=== PATIENT | female | born 1935 | race Caucasian/White ===

== ENCOUNTER 2017-08-02 19:06 | Emergency (ER) | payer MEDICARE, BC ==
--- NOTE | 2017-08-02 19:18 | EDM.PDOC ---
ED HPI GENERAL MEDICAL PROBLEM - General Chief Complaint: Lower Extremity Injury/Pain Stated Complaint: AMBULANCE Time Seen by Provider: 08/02/17 19:16 Source of Information: Reports: Patient, EMS History Limitations: Reports: No Limitations - History of Present Illness INITIAL COMMENTS - FREE TEXT/NARRATIVE: fell last night laid on floor. states right leg is bad with prior knee surgery and it gave out while she was going to the window to close the blinds. Right Knee Pain Score (Numeric/FACES): 5 - Related Data Allergies Allergy/AdvReac Type Severity Reaction Status Date / Time metformin Allergy Diarrhea Verified 08/02/17 19:32 penicillin Allergy Edema Verified 08/02/17 19:32 Sulfa (Sulfonamide Allergy Cannot Verified 08/02/17 19:32 Antibiotics) Remember Home Meds: Home Meds Furosemide 20 mg PO DAILY 06/21/15 [History] atorvaSTATin [Lipitor] 20 mg PO BEDTIME 06/21/15 [History] Digoxin [Lanoxin] 125 mcg PO .NOON 01/01/16 [History] Diltiazem HCl [Diltiazem 24Hr ER] 120 mg PO DAILY 01/01/16 [History] Fluticasone Propionate [Flonase] 1 spray NASBOTH BID 01/01/16 [History] Ipratropium/Albuterol Sulfate [Combivent Respimat Inhal [place]] 1 puff IH QID PRN 01/01/16 [History] Metoprolol Tartrate [Lopressor] 100 mg PO BID 01/01/16 [History] Rivaroxaban [Xarelto] 15 mg PO .1800 01/01/16 [History] Budesonide [Pulmicort] 2 ml NEB BID 02/20/16 [History] Formoterol Fumarate [Perforomist] 2 ml NEB .BID 02/20/16 [History] Levothyroxine Sodium [Synthroid] 75 mcg PO ACBREAKFAST 05/20/16 [History] Montelukast [Singulair] 10 mg PO BEDTIME 05/20/16 [History] Albuterol/Ipratropium [DuoNeb 3.0-0.5 MG/3 ML] 3 ml NEB ASDIRECTED 08/05/16 [ History] Prednisone [IJD: predniSONE] 40 mg PO WITHBREAKFAST #4 tablet 08/25/16 [Rx] Past Medical History HEENT History: Reports: Impaired Vision Cardiovascular History: Reports: Afib, CAD, Heart Failure, High Cholesterol, Hypertension, Pulmonary Hypertension, SOB on Exertion Other Cardiovascular History: unsure if she has had an irregular heart beat in the past, a.fib with rapid ventricular response. 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 OB/BYN History: miscarriage, blocked tubes bilat Musculoskeletal History: Reports: Neck Pain, Chronic, Osteoarthritis Neurological History: Reports: None Psychiatric History: Reports: Emotional Problems Endocrine/Metabolic History: Reports: Diabetes, Type II, Hypothyroidism, Obesity /BMI 30+ Hematologic History: Reports: Anticoagulation Therapy Immunologic History: Reports: None Oncologic (Cancer) History: Reports: None Dermatologic History: Reports: Other (See Below) Other Dermatologic History: spot removed on nose a long time ago - Infectious Disease History Infectious Disease History: Reports: C-Difficile, Measles, Pertussis (Whooping Cough) - Past Surgical History HEENT Surgical History: Reports: Cataract Surgery Musculoskeletal Surgical History: Reports: Joint Replacement, Knee Replacement Social & Family History - Family History Family Medical History: Noncontributory - Tobacco Use Smoking Status *Q: Former Smoker Years of Tobacco use: 40 Packs/Tins Daily: 0.5 Used Tobacco, but Quit: Yes Month Tobacco Last Used: 20 years ago Second Hand Smoke Exposure: No - Caffeine Use Caffeine Use: Reports: Coffee - Alcohol Use Days Per Week of Alcohol Use: 1 Number of Drinks Per Day: 1 Total Drinks Per Week: 1 - Recreational Drug Use Recreational Drug Use: No - Living Situation & Occupation Living situation: Reports: , Alone, Other Occupation: Retired Review of Systems - Review of Systems Review Of Systems: ROS reveals no pertinent complaints other than HPI. ED EXAM, GENERAL - Physical Exam Exam: See Below Exam Limited By: No Limitations General Appearance: Alert, WD/WN, Mild Distress, Other (painful) Ears: Hearing Grossly Normal Throat/Mouth: Normal Voice, No Airway Compromise Head: Atraumatic Neck: Non-Tender, Full Range of Motion Respiratory/Chest: No Respiratory Distress Cardiovascular: Regular Rate, Rhythm GI/Abdominal: Soft, Non-Tender Extremities: Other (right knee old ORIF, anglulated externally in position of comfort, NV wnl.) Neurological: Alert, Oriented, Normal Cognition Psychiatric: Tearful Skin Exam: Warm, Dry, Normal Color Lymphatic: No Adenopathy Course - Vital Signs Last Recorded V/S: Last Vital Signs Temp 36.4 C 08/02/17 19:12 Pulse 69 08/02/17 19:12 Resp 18 08/02/17 19:12 BP 130/71 08/02/17 19:12 Pulse Ox 96 08/02/17 19:12 - Re-Assessments/Exams Free Text/Narrative Re-Assessment/Exam: 08/02/17 19:49 results discussed with pt who is not happy about breaking her knee. GF called. 08/02/17 20:14 Dr Gwen aleman @ [facility] accepted pt. Departure - Departure Time of Disposition: 20:16 Disposition: DC/Tfer to Acute Hospital 02 Condition: Fair Clinical Impression: Knee fracture, right - Discharge Information Forms: Interfacility Transfer EMTALA
[2017-08-02 19:29] VITALS: BP 130/71
[2017-08-02] MEDS ORDERED: Ondansetron 4 MG/2 ML SDV IV ONE (20:39)
[2017-08-02] MEDS ORDERED: Morphine 2 MG/ML Syringe IVPUSH ONE (20:39)
== END 2017-08-02 21:00 ==
LOC: DL.ED 19:06
DX: S72.401A Unspecified fracture of lower end of right femur, initial encounter for closed fracture (principal); I11.0 Hypertensive heart disease with heart failure; I50.9 Heart failure, unspecified; I25.10 Atherosclerotic heart disease of native coronary artery without angina pectoris; I48.91 Unspecified atrial fibrillation; E78.00 Pure hypercholesterolemia, unspecified; K21.9 Gastro-esophageal reflux disease without esophagitis; G47.30 Sleep apnea, unspecified; M19.90 Unspecified osteoarthritis, unspecified site; E11.9 Type 2 diabetes mellitus without complications; E03.9 Hypothyroidism, unspecified; E66.9 Obesity, unspecified; Z79.01 Long term (current) use of anticoagulants; Z98.49 Cataract extraction status, unspecified eye; Z96.651 Presence of right artificial knee joint; Z87.891 Personal history of nicotine dependence; Z79.899 Other long term (current) drug therapy; Z88.0 Allergy status to penicillin; Z88.2 Allergy status to sulfonamides; Z88.8 Allergy status to other drugs, medicaments and biological substances; W19.XXXA Unspecified fall, initial encounter; Z68.39 Body mass index [BMI] 39.0-39.9, adult
CPT/HCPCS: 73560; 82962; 96374; 96375; 99285; J2270; J2405; 99283

== ENCOUNTER 2017-12-21 02:05 | Emergency (ER) | payer MEDICARE, BC ==
--- NOTE | 2017-12-21 02:06 | EDM.PDOC ---
ED HPI GENERAL MEDICAL PROBLEM - General Stated Complaint: FLU. IN BY DL AMB FROM [facility] Time Seen by Provider: 12/21/17 01:50 Source of Information: Reports: Patient History Limitations: Reports: No Limitations - History of Present Illness INITIAL COMMENTS - FREE TEXT/NARRATIVE: This 82 yo female patient was brought to the ED by [facility] due to a near syncopial episode. The patient reports she got up tonight to have a loose bowel movement when she had an episode of lightheadedness. The patient reports she did not fall down. The patient reports she also has some pain in her right arm over the past couple of days. Onset: Today Duration: Resolved Prior to Arrival Location: Reports: Generalized Quality: Reports: Other Severity: Moderate Improves with: Reports: None Worsens with: Reports: None Associated Symptoms: Reports: Syncope (near) Right Knee Pain Score (Numeric/FACES): 6 - Related Data Allergies Allergy/AdvReac Type Severity Reaction Status Date / Time metformin Allergy Diarrhea Verified 08/02/17 19:32 penicillin Allergy Edema Verified 08/02/17 19:32 Sulfa (Sulfonamide Allergy Cannot Verified 08/02/17 19:32 Antibiotics) Remember Home Meds: Home Meds Furosemide 20 mg PO DAILY 06/21/15 [History] atorvaSTATin [Lipitor] 20 mg PO BEDTIME 06/21/15 [History] Digoxin [Lanoxin] 125 mcg PO .NOON 01/01/16 [History] Diltiazem HCl [Diltiazem 24Hr ER] 120 mg PO DAILY 01/01/16 [History] Fluticasone Propionate [Flonase] 1 spray NASBOTH BID 01/01/16 [History] Ipratropium/Albuterol Sulfate [Combivent Respimat Inhal [place]] 1 puff IH QID PRN 01/01/16 [History] Metoprolol Tartrate [Lopressor] 100 mg PO BID 01/01/16 [History] Rivaroxaban [Xarelto] 15 mg PO .1800 01/01/16 [History] Budesonide [Pulmicort] 2 ml NEB BID 02/20/16 [History] Formoterol Fumarate [Perforomist] 2 ml NEB .BID 02/20/16 [History] Levothyroxine Sodium [Synthroid] 75 mcg PO ACBREAKFAST 05/20/16 [History] Montelukast [Singulair] 10 mg PO BEDTIME 05/20/16 [History] Albuterol/Ipratropium [DuoNeb 3.0-0.5 MG/3 ML] 3 ml NEB ASDIRECTED 08/05/16 [ History] Prednisone [IJD: predniSONE] 40 mg PO WITHBREAKFAST #4 tablet 08/25/16 [Rx] Past Medical History HEENT History: Reports: Impaired Vision Cardiovascular History: Reports: Afib, CAD, Heart Failure, High Cholesterol, Hypertension, Pulmonary Hypertension, SOB on Exertion Other Cardiovascular History: unsure if she has had an irregular heart beat in the past, a.fib with rapid ventricular response. 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 OB/BYN History: miscarriage, blocked tubes bilat Musculoskeletal History: Reports: Neck Pain, Chronic, Osteoarthritis Neurological History: Reports: None Psychiatric History: Reports: Emotional Problems Endocrine/Metabolic History: Reports: Diabetes, Type II, Hypothyroidism, Obesity /BMI 30+ Hematologic History: Reports: Anticoagulation Therapy Immunologic History: Reports: None Oncologic (Cancer) History: Reports: None Dermatologic History: Reports: Other (See Below) Other Dermatologic History: spot removed on nose a long time ago - Infectious Disease History Infectious Disease History: Reports: C-Difficile, Measles, Pertussis (Whooping Cough) - Past Surgical History Head Surgeries/Procedures: Reports: None HEENT Surgical History: Reports: Cataract Surgery Musculoskeletal Surgical History: Reports: Joint Replacement, Knee Replacement Social & Family History - Family History Family Medical History: Noncontributory - Tobacco Use Smoking Status *Q: Never Smoker Years of Tobacco use: 40 Packs/Tins Daily: 0.5 Used Tobacco, but Quit: Yes Month Tobacco Last Used: 20 years ago Second Hand Smoke Exposure: No - Caffeine Use Caffeine Use: Reports: Coffee - Alcohol Use Days Per Week of Alcohol Use: 1 Number of Drinks Per Day: 1 Total Drinks Per Week: 1 - Recreational Drug Use Recreational Drug Use: No - Living Situation & Occupation Living situation: Reports: , Alone, Other Occupation: Retired ED ROS GENERAL - Review of Systems Review Of Systems: ROS reveals no pertinent complaints other than HPI. - Physical Exam Exam: See Below Exam Limited By: No Limitations General Appearance: Alert, WD/WN, Moderate Distress Eye Exam: Bilateral Eye: EOMI, Normal Inspection, PERRL Ears: Normal External Exam, Normal Canal, Hearing Grossly Normal, Normal TMs Nose: Normal Inspection, Normal Mucosa, No Blood Throat/Mouth: Normal Inspection, Normal Lips, Normal Teeth, Normal Gums, Normal Oropharynx, Normal Voice, No Airway Compromise Head Exam: Atraumatic, Normocephalic Neck: Normal Inspection, Supple, Non-Tender, Full Range of Motion Respiratory/Chest: No Respiratory Distress, Lungs Clear, Normal Breath Sounds, No Accessory Muscle Use, Chest Non-Tender Cardiovascular: No Edema, No Gallop, No JVD, No Murmur, No Rub, Irregularly Irregular GI/Abdominal: Normal Bowel Sounds (Female) Exam: Deferred Rectal (Female) Exam: Deferred Neuro Exam (Abbreviated): Alert, Oriented, CN II-XII Intact, Normal Cognition Back Exam: Normal Inspection, Full Range of Motion, NT Extremities: Normal Inspection, Normal Range of Motion, Non-Tender, No Pedal Edema, Normal Capillary Refill Psychiatric: Normal Affect, Normal Mood Skin Exam: Warm, Dry, Intact, Normal Color, No Rash Course - Vital Signs Last Recorded V/S: Last Vital Signs Temp 36.1 C 12/21/17 01:37 Pulse 88 12/21/17 01:37 Resp 18 12/21/17 01:37 BP 118/50 L 12/21/17 01:37 Pulse Ox 96 12/21/17 01:37 - Orders/Labs/Meds Orders: Active Orders 24 hr Category Date Time Status EKG Documentation Completion [RC] URGENT Care 12/21/17 01:37 Active CULTURE URINE [RM] Stat Lab 12/21/17 02:35 Received Labs: Laboratory Tests 12/21/17 12/21/17 12/21/17 Range/Units 01:50 01:50 02:35 WBC 14.8 H (5.0-10.0) 10^3/uL RBC 4.03 L (4.2-5.4) 10^6/uL Hgb 12.1 (12.0-16.0) g/dL Hct 37.9 (37.0-47.0) % MCV 94.0 (80-100) fL MCH 30.0 (27.0-34.0) pg MCHC 31.9 L (33.0-35.0) g/dL Plt Count 339 D (150-450) 10^3/uL Neut % (Auto) 80.5 H (42.2-75.2) % Lymph % (Auto) 9.8 L (20.5-50.1) % [place] % (Auto) 6.9 (2-8) % Eos % (Auto) 2.7 (1.0-3.0) % Baso % (Auto) 0.1 (0.0-1.0) % Sodium 139 (135-145) mmol/L Potassium 3.7 (3.6-5.0) mmol/L Chloride 94 L (101-111) mmol/L Carbon Dioxide 37.0 H (21.0-31.0) mmol/L Anion Gap 11.7 BUN 29 H (7-18) mg/dL Creatinine 1.3 (0.6-1.3) mg/dL Est Cr Clr Drug Dosing TNP Estimated GFR (MDRD) 39 BUN/Creatinine Ratio 22.30 Glucose 126 H (74-105) mg/dL Calcium 9.3 D (8.4-10.2) mg/dl Total Bilirubin 0.6 (0.2-1.0) mg/dL AST 17 (10-42) IU/L ALT 7 L (10-60) IU/L Alkaline Phosphatase 81 (42-121) IU/L Troponin I < 0.02 (0.00-0.02) ng/ml Total Protein 6.8 (6.7-8.2) g/dl Albumin 3.4 (3.2-5.5) g/dl Globulin 3.4 Albumin/Globulin Ratio 1.00 Urine Color Yellow (YELLOW) Urine Appearance Turbid (CLEAR) Urine pH 6.0 (5.0-9.0) Ur Specific [place] 1.015 (1.005-1.030) Urine Protein Negative (NEGATIVE) Urine Glucose (UA) Negative (NEGATIVE) Urine Ketones Negative (NEGATIVE) Urine Occult Blood Small H (NEGATIVE) Urine Nitrite Negative (NEGATIVE) Urine Bilirubin Negative (NEGATIVE) Urine Urobilinogen 0.2 (0.2-1.0) mg/dL Ur Leukocyte Esterase Large H (NEGATIVE) Urine RBC 5-10 H /HPF Urine WBC Packed H (0-5/HPF) /HPF Ur Epithelial Cells Moderate H /HPF Urine Bacteria Many H (0-FEW/HPF) /HPF Meds: Medications Discontinued Medications Generic Name Dose Route Start Last Admin Trade Name [place] PRN Reason Stop Dose Admin Ciprofloxacin 500 mg 12/21/17 02:56 12/21/17 03:01 Ciprofloxacin Hcl PO 12/21/17 02:57 500 mg ONETIME ONE Administration Departure - Departure Time of Disposition: 03:06 Disposition: DC/Tfer to Detention [facility] 63 Condition: Fair Clinical Impression: Syncope Qualifiers: Syncope type: unspecified Qualified Code(s): R55 - Syncope and collapse Urinary tract infection Qualifiers: Urinary tract infection type: acute cystitis Hematuria presence: with hematuria Qualified Code(s): N30.01 - Acute cystitis with hematuria - Discharge Information Instructions: Near-Syncope, [id number], Urinary Tract Infection, Adult, Easy- to-Read Care Plan Goals: The patient was advised of the examination, lab and EKG results during the visit. The patient was given an oral dose of Cipro while in the ED. The patient was given orders to continue to take Cipro (250 mg) 1 by mouth 2 times per day for 7 days. If the patient has any additional symptoms or concerns, the patient should follow-up with her primary care facility or return to the emergency department. - My Orders Last 24 Hours: My Active Orders 12/21/17 01:37 EKG Documentation Completion [RC] URGENT 12/21/17 02:35 CULTURE URINE [RM] Stat - Assessment/Plan Last 24 Hours: My Active Orders 12/21/17 01:37 EKG Documentation Completion [RC] URGENT 12/21/17 02:35 CULTURE URINE [RM] Stat
[2017-12-21 02:19] LABS: CHLORIDE,CL 94 mmol/L (101-111); SODIUM,NA 139 mmol/L (135-145)
[2017-12-21] MEDS ORDERED: Ciprofloxacin 500 MG Tab PO ONE (02:56)
[2017-12-21] MEDS ORDERED: Acetaminophen/HYDROcodone 325-5 MG Tab PO ONE (03:22)
[2017-12-21 03:41] VITALS: BP 125/53
--- NOTE | 2017-12-23 12:31 | EKG ---
12/21/2017 - [facility] - FINDINGS: A 12-lead EKG shows atrial fibrillation with rapid ventricular response with heart rate of 92. No significant ST elevation or ST depression. Evidence of right bundle-branch block along with left anterior fascicular block noted. Nonspecific ST-T wave changes noted on lead V2 and V3. [facility] /[id number]
== END 2017-12-21 04:07 ==
LOC: DL.ED 02:05
DX: R55 Syncope and collapse (principal); N30.01 Acute cystitis with hematuria; I11.0 Hypertensive heart disease with heart failure; I15.0 Renovascular hypertension; E78.00 Pure hypercholesterolemia, unspecified; E11.9 Type 2 diabetes mellitus without complications; E03.9 Hypothyroidism, unspecified; Z88.8 Allergy status to other drugs, medicaments and biological substances; Z88.0 Allergy status to penicillin; Z88.2 Allergy status to sulfonamides; Z79.899 Other long term (current) drug therapy
CPT/HCPCS: 36415; 80053; 81001; 84484; 85025; 87086; 93005; 93010; 99284; A9270; 87088; 87186

== ENCOUNTER 2020-02-29 13:51 | Inpatient (IN) | payer MEDICARE, BC ==
--- NOTE | 2020-02-29 13:51 | EDM.PDOC ---
ED HPI GENERAL MEDICAL PROBLEM - General Chief Complaint: Respiratory Problem Stated Complaint: UNKNOWN Time Seen by Provider: 02/29/20 13:35 Source of Information: Reports: Patient History Limitations: Reports: No Limitations - History of Present Illness INITIAL COMMENTS - FREE TEXT/NARRATIVE: This 84 yo female patient reports to the ED from the alf due to increased swelling in her lower extremities, a 6 pound weight gain in the past 24 hours, increased shortness of breath and increased confusion. The patient was seen (via telemed) yesterday by Dr. Hein and given an IM injection of Lasix due to the swelling. The patient reports she has continued to get worse not better. The patient reports she feels like her body is giving up faster than her brain. Onset: Gradual Duration: Day(s):, Constant Location: Reports: Chest, Lower Extremity, Left, Lower Extremity, Right Quality: Reports: Dull Severity: Moderate Improves with: Reports: None Worsens with: Reports: None Associated Symptoms: Reports: Shortness of Breath, Other (swelling with weight gain) - Related Data Allergies Allergy/AdvReac Type Severity Reaction Status Date / Time metformin Allergy Diarrhea Verified 01/18/20 09:14 penicillin Allergy Edema Verified 01/18/20 09:14 Sulfa (Sulfonamide Allergy Cannot Verified 01/18/20 09:14 Antibiotics) Remember Home Meds: Home Meds atorvaSTATin [Lipitor] 20 mg PO BEDTIME 06/21/15 [History] Digoxin [Lanoxin] 125 mcg PO Q48H 01/01/16 [History] Ipratropium/Albuterol Sulfate [Combivent Respimat 20-100 Mcg] 1 puff IH QID PRN 01/01/16 [History] Rivaroxaban [Xarelto] 15 mg PO DAILY 01/01/16 [History] Budesonide [Pulmicort] 2 ml NEB BID 02/20/16 [History] Montelukast [Singulair] 10 mg PO BEDTIME 05/20/16 [History] Albuterol/Ipratropium [DuoNeb 3.0-0.5 MG/3 ML] 3 ml NEB ASDIRECTED 08/05/16 [ History] Acetaminophen [Tylenol Extra Strength] 500 mg PO BID 01/18/20 [History] Calcium Carbonate [Calcium] 600 mg PO BID 01/18/20 [History] Cholecalciferol (Vitamin D3) [Vitamin D3] 1,000 unit PO DAILY 01/18/20 [History] Diclofenac Sodium [Voltaren 1% Gel] 1 dose TOP ASDIRECTED PRN 01/18/20 [History] Docusate Sodium [Colace] 100 mg PO BID 01/18/20 [History] L. Acidophilus/L.bulgaricus [Floranex Tablet] 1 tab PO DAILY 01/18/20 [History] Levothyroxine 112 mcg PO DAILY 01/18/20 [History] Metoprolol Tartrate 25 mg PO BID 01/18/20 [History] Polyethylene Glycol 3350 [Miralax] 17 gm PO DAILY 01/18/20 [History] Potassium Chloride 10 meq PO BEDTIME 01/18/20 [History] Torsemide [Demadex] 80 mg PO DAILY 01/18/20 [History] allopurinoL [Zyloprim] 200 mg PO DAILY 01/18/20 [History] Ferrous Sulfate [Iron] 325 mg PO BID 02/29/20 [History] Past Medical History HEENT History: Reports: Impaired Vision Cardiovascular History: Reports: Afib, CAD, Heart Failure, High Cholesterol, Hypertension, Pulmonary Hypertension, SOB on Exertion Other Cardiovascular History: unsure if she has had an irregular heart beat in the past, a.fib with rapid ventricular response. 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: Other METAL ROASTER History: miscarriage, blocked tubes bilat Musculoskeletal History: Reports: Neck Pain, Chronic, Osteoarthritis Neurological History: Reports: None Psychiatric History: Reports: Emotional Problems Endocrine/Metabolic History: Reports: Diabetes, Type II, Hypothyroidism, Obesity /BMI 30+ Hematologic History: Reports: Anemia, Anticoagulation Therapy Immunologic History: Reports: None Oncologic (Cancer) History: Reports: None Dermatologic History: Reports: Other (See Below) Other Dermatologic History: spot removed on nose a long time ago - Infectious Disease History Infectious Disease History: Reports: Chicken Pox, Measles, Mumps, Shingles - Past Surgical History Head Surgeries/Procedures: Reports: None HEENT Surgical History: Reports: Cataract Surgery, Tonsillectomy Cardiovascular Surgical History: Reports: None Respiratory Surgical History: Reports: None GI Surgical History: Reports: Appendectomy Female Surgical History: Reports: Hysterectomy Musculoskeletal Surgical History: Reports: Joint Replacement, Knee Replacement Social & Family History - Family History Family Medical History: Noncontributory - Caffeine Use Caffeine Use: Reports: Coffee Caffeine Use Comment: 2 cups daily - Living Situation & Occupation Living situation: Reports: , Alone, Other Occupation: Retired ED ROS GENERAL - Review of Systems Review Of Systems: Comprehensive ROS is negative, except as noted in HPI. ED EXAM, GENERAL - Physical Exam Exam: See Below Exam Limited By: No Limitations General Appearance: Alert, WD/WN, Moderate Distress, Obese Eye Exam: Bilateral Eye: EOMI, Normal Inspection, PERRL Ears: Normal External Exam, Normal Canal, Hearing Grossly Normal, Normal TMs Nose: Normal Inspection, Normal Mucosa, No Blood Throat/Mouth: Normal Inspection, Normal Lips, Normal Teeth, Normal Gums, Normal Oropharynx, Normal Voice, No Airway Compromise Head: Atraumatic, Normocephalic Neck: Normal Inspection, Supple, Non-Tender, Full Range of Motion Respiratory/Chest: No Accessory Muscle Use, Chest Non-Tender, Decreased Breath Sounds (diffuse) Cardiovascular: No Gallop, No JVD, No Murmur, No Rub, Irregularly Irregular GI/Abdominal: Normal Bowel Sounds, Soft, Distended (according to patient) (Female) Exam: Deferred Rectal (Female) Exam: Deferred Back Exam: Normal Inspection, Full Range of Motion, NT Extremities: Non-Tender, Normal Capillary Refill, Pedal Edema Neurological: Alert, Oriented, CN II-XII Intact, Slow to Respond ( intermittently the patient struggled to find the right words) Psychiatric: Normal Affect, Normal Mood Skin Exam: Warm, Dry, Intact, Normal Color, No Rash Lymphatic: No Adenopathy Course - Vital Signs Last Recorded V/S: Last Vital Signs Temp 36.3 C 02/29/20 13:08 Pulse 85 02/29/20 13:08 Resp 28 H 02/29/20 13:08 BP 117/52 L 02/29/20 13:08 Pulse Ox 100 02/29/20 13:08 - Orders/Labs/Meds Orders: Active Orders 24 hr Category Date Time Status Admission Diagnosis [ADT] Urgent ADT 02/29/20 15:17 Ordered Admission Status [Patient Status] [ADT] Routine ADT 02/29/20 15:17 Ordered EKG Documentation Completion [RC] URGENT Care 02/29/20 13:18 Active CULTURE BLOOD [BC] Stat Lab 02/29/20 13:32 Received CULTURE URINE [RM] Urgent Lab 02/29/20 14:40 Received Labs: Laboratory Tests 02/29/20 02/29/20 02/29/20 Range/Units 13:32 13:32 13:32 WBC 12.6 H (5.0-10.0) 10^3/uL RBC 2.97 L (4.2-5.4) 10^6/uL Hgb 8.7 L D (12.0-16.0) g/dL Hct 30.4 L (37.0-47.0) % MCV 102.4 H D (80-100) fL MCH 29.3 (27.0-34.0) pg MCHC 28.6 L (33.0-35.0) g/dL Plt Count 315 (150-450) 10^3/uL Neut % (Auto) 79.9 H (42.2-75.2) % Lymph % (Auto) 8.9 L (20.5-50.1) % [place] % (Auto) 9.2 H (2-8) % Eos % (Auto) 1.4 (1.0-3.0) % Baso % (Auto) 0.6 (0.0-1.0) % Add Manual Diff Yes Neutrophils % (Manual) 78 H (42-75) % Lymphocytes % (Manual) 15 L (20-50) % Monocytes % (Manual) 7 (2-8) % Toxic Granulation 1+ slight Hypochromasia 2+ moderate Sodium (136-145) mmol/L Potassium (3.5-5.1) mmol/L Chloride (98-107) mmol/L Carbon Dioxide (21-32) mmol/L Anion Gap (7-13) mEq/L BUN (7-18) mg/dL Creatinine (0.55-1.02) mg/dL Est Cr Clr Drug Dosing mL/min Estimated GFR (MDRD) BUN/Creatinine Ratio (No establ ref range) Glucose (74-99) mg/dL Lactic Acid 2.1 H* (0.4-2.0) mmol/L Calcium (8.5-10.1) mg/dL Total Bilirubin (0.2-1.0) mg/dL AST (15-37) U/L ALT (14-59) U/L Alkaline Phosphatase (46-116) U/L Troponin I (0.000-0.056) ng/mL B-Natriuretic Peptide 255 H (0-100) pg/ml Total Protein (6.4-8.2) g/dL Albumin (3.4-5.0) g/dL Globulin Albumin/Globulin Ratio Urine Color (YELLOW) Urine Appearance (CLEAR) Urine pH (5.0-9.0) Ur Specific [place] (1.005-1.030) Urine Protein (NEGATIVE) Urine Glucose (UA) (NEGATIVE) Urine Ketones (NEGATIVE) Urine Occult Blood (NEGATIVE) Urine Nitrite (NEGATIVE) Urine Bilirubin (NEGATIVE) Urine Urobilinogen (0.2-1.0) mg/dL Ur Leukocyte Esterase (NEGATIVE) U Hyaline Cast (Auto) Urine RBC /HPF Urine WBC (0-5/HPF) /HPF Ur Epithelial Cells (NOT SEEN) /HPF Urine Bacteria (0-FEW/HPF) /HPF Digoxin (0.9-2.0) ng/mL 02/29/20 02/29/20 02/29/20 Range/Units 13:32 13:32 14:40 WBC (5.0-10.0) 10^3/uL RBC (4.2-5.4) 10^6/uL Hgb (12.0-16.0) g/dL Hct (37.0-47.0) % MCV (80-100) fL MCH (27.0-34.0) pg MCHC (33.0-35.0) g/dL Plt Count (150-450) 10^3/uL Neut % (Auto) (42.2-75.2) % Lymph % (Auto) (20.5-50.1) % [place] % (Auto) (2-8) % Eos % (Auto) (1.0-3.0) % Baso % (Auto) (0.0-1.0) % Add Manual Diff Neutrophils % (Manual) (42-75) % Lymphocytes % (Manual) (20-50) % Monocytes % (Manual) (2-8) % Toxic Granulation Hypochromasia Sodium 141 (136-145) mmol/L Potassium 4.1 (3.5-5.1) mmol/L Chloride 93 L (98-107) mmol/L Carbon Dioxide > 45 H* (21-32) mmol/L Anion Gap 7.52430 (7-13) mEq/L BUN 26 H (7-18) mg/dL Creatinine 1.39 H (0.55-1.02) mg/dL Est Cr Clr Drug Dosing 25.09 mL/min Estimated GFR (MDRD) 36 BUN/Creatinine Ratio 18.7 (No establ ref range) Glucose 102 H (74-99) mg/dL Lactic Acid (0.4-2.0) mmol/L Calcium 8.9 (8.5-10.1) mg/dL Total Bilirubin 0.4 (0.2-1.0) mg/dL AST 16 (15-37) U/L ALT 13 L (14-59) U/L Alkaline Phosphatase 101 (46-116) U/L Troponin I < 0.017 (0.000-0.056) ng/mL B-Natriuretic Peptide (0-100) pg/ml Total Protein 6.3 L (6.4-8.2) g/dL Albumin 3.2 L (3.4-5.0) g/dL Globulin 3.1 Albumin/Globulin Ratio 1.03 Urine Color Yellow (YELLOW) Urine Appearance Slightly cloudy (CLEAR) Urine pH 6.5 (5.0-9.0) Ur Specific [place] 1.020 (1.005-1.030) Urine Protein Negative (NEGATIVE) Urine Glucose (UA) Negative (NEGATIVE) Urine Ketones Negative (NEGATIVE) Urine Occult Blood Negative (NEGATIVE) Urine Nitrite Negative (NEGATIVE) Urine Bilirubin Negative (NEGATIVE) Urine Urobilinogen 0.2 (0.2-1.0) mg/dL Ur Leukocyte Esterase Small H (NEGATIVE) U Hyaline Cast (Auto) Moderate Urine RBC 0-5 /HPF Urine WBC 10-20 H (0-5/HPF) /HPF Ur Epithelial Cells Few (NOT SEEN) /HPF Urine Bacteria Many H (0-FEW/HPF) /HPF Digoxin 0.5 L (0.9-2.0) ng/mL Departure - Departure Time of Disposition: 15:18 Disposition: Admitted As Inpatient 64 Condition: Fair Clinical Impression: CHF (congestive heart failure) Qualifiers: Qualified Code(s): I50.9 - Heart failure, unspecified - Discharge Information *PRESCRIPTION DRUG MONITORING PROGRAM REVIEWED*: Not Applicable *COPY OF PRESCRIPTION DRUG MONITORING REPORT IN PATIENT TONO: Not Applicable Care Plan Goals: Discussed the patient's history, examination, lab and x-ray results with Dr. Moran. Dr. Moran accepted the patient for continued evaluation and further management as an inpatient at [facility]. Sepsis Event Note - Focused Exam Vital Signs: Vital Signs Temp Pulse Resp BP Pulse Ox 02/29/20 13:08 36.3 C 85 28 H 117/52 L 100 Date Exam was Performed: 02/29/20 Time Exam was Performed: 15:18 - My Orders Last 24 Hours: My Active Orders 02/29/20 13:18 EKG Documentation Completion [RC] URGENT 02/29/20 13:32 CULTURE BLOOD [BC] Stat 02/29/20 14:40 CULTURE URINE [RM] Urgent 02/29/20 15:17 Admission Diagnosis [ADT] Urgent Admission Status [Patient Status] [ADT] Routine - Assessment/Plan Last 24 Hours: My Active Orders 02/29/20 13:18 EKG Documentation Completion [RC] URGENT 02/29/20 13:32 CULTURE BLOOD [BC] Stat 02/29/20 14:40 CULTURE URINE [RM] Urgent 02/29/20 15:17 Admission Diagnosis [ADT] Urgent Admission Status [Patient Status] [ADT] Routine
--- NOTE | 2020-02-29 14:41 | CR ---
EXAMINATION: Chest 1V Frontal SEX: Female AGE: 84 years CLINICAL HISTORY: 84-year-old female with increased SHORTNESS OF BREATH. INTERPRETATION: Abnormal. 1. Dependent large new pleural fluid accumulation (effusion) right lung base this patient with chronic pleural reactive changes left base that were demonstrated back on 11 January 2017 AP CXR. 2. Chronic mild cardiomegaly. 3. No pulmonary vascular congestion, new cephalization of vascular flow or alveolar edema. 4. Underlying atelectasis or even infiltrate right lower lobe. Differential consideration. 5. No pneumothorax or pneumomediastinum. CONCLUSION: Bibasilar pleural effusions.
[2020-02-29 14:43] LABS: CHLORIDE,CL 93 mmol/L (98-107); SODIUM,NA 141 mmol/L (136-145)
[2020-02-29] MEDS ORDERED: Acetaminophen/HYDROcodone 325-10 MG Tab PO PRN (16:22)
[2020-02-29] MEDS ORDERED: Temazepam 15 MG Cap PO PRN (16:22)
[2020-02-29] MEDS ORDERED: Acetaminophen 325 MG Tab PO PRN (16:22)
[2020-02-29] MEDS ORDERED: Ondansetron 4 MG Tab.DIS PO PRN (16:22)
[2020-02-29] MEDS ORDERED: Ondansetron 4 MG/2 ML SDV IVPUSH PRN (16:22)
--- NOTE | 2020-02-29 16:22 | PCM.HP ---
H&P History of Present Illness - General Date of Service: 02/29/20 Admit Problem/Dx: Admission Diagnosis/Problem Admission Diagnosis/Problem CHF, Congestive heart failure Source of Information: Patient, Provider - History of Present Illness Initial Comments - Free Text/Narative: 84 years old with a history of COPD, chronic home oxygen dependent at 2 L/m nasal cannula, congestive heart failure, morbid obesity. The patient presented with about to 3 weeks of increasing shortness of breath. Associated with leg swelling. No associated fever or chills but has occasional cough. The patient was seen in the clinic and was noted to have significant swelling, I am injection of Lasix was given. Since then the swelling did not improve. No chest pain, abdominal pain, no fever. - Related Data Allergies/Adverse Reactions: Allergies Allergy/AdvReac Type Severity Reaction Status Date / Time metformin Allergy Diarrhea Verified 01/18/20 09:14 penicillin Allergy Edema Verified 01/18/20 09:14 Sulfa (Sulfonamide Allergy Cannot Verified 01/18/20 09:14 Antibiotics) Remember Home Medications: Home Meds atorvaSTATin [Lipitor] 20 mg PO BEDTIME 06/21/15 [History] Digoxin [Lanoxin] 125 mcg PO Q48H 01/01/16 [History] Ipratropium/Albuterol Sulfate [Combivent Respimat 20-100 Mcg] 1 puff IH QID PRN 01/01/16 [History] Rivaroxaban [Xarelto] 15 mg PO DAILY 01/01/16 [History] Budesonide [Pulmicort] 2 ml NEB BID 02/20/16 [History] Montelukast [Singulair] 10 mg PO BEDTIME 05/20/16 [History] Albuterol/Ipratropium [DuoNeb 3.0-0.5 MG/3 ML] 3 ml NEB ASDIRECTED 08/05/16 [ History] Acetaminophen [Tylenol Extra Strength] 500 mg PO BID 01/18/20 [History] Calcium Carbonate [Calcium] 600 mg PO BID 01/18/20 [History] Cholecalciferol (Vitamin D3) [Vitamin D3] 1,000 unit PO DAILY 01/18/20 [History] Diclofenac Sodium [Voltaren 1% Gel] 1 dose TOP ASDIRECTED PRN 01/18/20 [History] Docusate Sodium [Colace] 100 mg PO BID 01/18/20 [History] L. Acidophilus/L.bulgaricus [Floranex Tablet] 1 tab PO DAILY 01/18/20 [History] Levothyroxine 112 mcg PO DAILY 01/18/20 [History] Metoprolol Tartrate 25 mg PO BID 01/18/20 [History] Polyethylene Glycol 3350 [Miralax] 17 gm PO DAILY 01/18/20 [History] Potassium Chloride 10 meq PO BEDTIME 01/18/20 [History] Torsemide [Demadex] 80 mg PO DAILY 01/18/20 [History] allopurinoL [Zyloprim] 200 mg PO DAILY 01/18/20 [History] Ferrous Sulfate [Iron] 325 mg PO BID 02/29/20 [History] Past Medical History HEENT History: Reports: Impaired Vision Cardiovascular History: Reports: Afib, CAD, Heart Failure, High Cholesterol, Hypertension, Pulmonary Hypertension, SOB on Exertion Other Cardiovascular History: unsure if she has had an irregular heart beat in the past, a.fib with rapid ventricular response. Respiratory History: Reports: COPD, Sleep Apnea, SOB Other Respiratory History: CPAP machine at home, slightly broken Gastrointestinal History: Reports: Chronic Constipation Genitourinary History: Reports: Acute Renal Failure, Urinary Incontinence [employer] History: Reports: Other OB/BYN History: miscarriage, blocked tubes bilat Musculoskeletal History: Reports: Neck Pain, Chronic, Osteoarthritis Neurological History: Reports: None Psychiatric History: Reports: Emotional Problems Endocrine/Metabolic History: Reports: Diabetes, Type II, Hypothyroidism, Obesity /BMI 30+ Hematologic History: Reports: Anemia, Anticoagulation Therapy Immunologic History: Reports: None Oncologic (Cancer) History: Reports: None Dermatologic History: Reports: Other (See Below) Other Dermatologic History: spot removed on nose a long time ago - Infectious Disease History Infectious Disease History: Reports: Chicken Pox, Measles, Mumps, Shingles - Past Surgical History Head Surgeries/Procedures: Reports: None HEENT Surgical History: Reports: Cataract Surgery, Tonsillectomy Cardiovascular Surgical History: Reports: None Respiratory Surgical History: Reports: None GI Surgical History: Reports: Appendectomy Female Surgical History: Reports: Hysterectomy Musculoskeletal Surgical History: Reports: Joint Replacement, Knee Replacement Social & Family History - Family History Family Medical History: Noncontributory - Tobacco Use Smoking Status *Q: Former Smoker Used Tobacco, but Quit: Yes Month/Year Tobacco Last Used: 25 years ago - Caffeine Use Caffeine Use: Reports: Coffee Caffeine Use Comment: 2 cups daily - Living Situation & Occupation Living situation: Reports: , Alone, Other Occupation: Retired H&P Review of Systems - Review of Systems: Review Of Systems: See Below General: Denies: Fever Pulmonary: Reports: Shortness of Breath, Cough. Denies: Sputum Cardiovascular: Reports: Edema. Denies: Chest Pain Gastrointestinal: Reports: Other (Feels abdominal distention, bloating). Denies : Abdominal Pain Psychiatric: Reports: Confusion Exam - Exam Exam: See Below - Vital Signs Vital Signs: Last Vital Signs Temp 97.4 F 02/29/20 13:08 Pulse 85 02/29/20 13:08 Resp 28 H 02/29/20 13:08 BP 117/52 L 02/29/20 13:08 Pulse Ox 100 02/29/20 13:08 Weight: 218 lb 12.8 oz - Exam Quality Assessment: Supplemental Oxygen General: Alert, Oriented Neck: Supple Lungs: Decreased Breath Sounds, Wheezing Cardiovascular: Regular Rate, Regular Rhythm GI/Abdominal Exam: Normal Bowel Sounds, Soft, Non-Tender Extremities: Pedal Edema (3+ bilateral) Neuro Extensive - Mental Status: Alert, Oriented x3, Normal Mood/Affect Psychiatric: Alert, Normal Affect, Normal Mood - Patient Data Lab Results Last 24 hrs: Laboratory Results - last 24 hr 02/29/20 02/29/20 02/29/20 Range/Units 13:32 13:32 13:32 WBC 12.6 H (5.0-10.0) 10^3/uL RBC 2.97 L (4.2-5.4) 10^6/uL Hgb 8.7 L D (12.0-16.0) g/dL Hct 30.4 L (37.0-47.0) % MCV 102.4 H D (80-100) fL MCH 29.3 (27.0-34.0) pg MCHC 28.6 L (33.0-35.0) g/dL Plt Count 315 (150-450) 10^3/uL Neut % (Auto) 79.9 H (42.2-75.2) % Lymph % (Auto) 8.9 L (20.5-50.1) % [place] % (Auto) 9.2 H (2-8) % Eos % (Auto) 1.4 (1.0-3.0) % Baso % (Auto) 0.6 (0.0-1.0) % Add Manual Diff Yes Neutrophils % (Manual) 78 H (42-75) % Lymphocytes % (Manual) 15 L (20-50) % Monocytes % (Manual) 7 (2-8) % Toxic Granulation 1+ slight Hypochromasia 2+ moderate Sodium (136-145) mmol/L Potassium (3.5-5.1) mmol/L Chloride (98-107) mmol/L Carbon Dioxide (21-32) mmol/L Anion Gap (7-13) mEq/L BUN (7-18) mg/dL Creatinine (0.55-1.02) mg/dL Est Cr Clr Drug Dosing mL/min Estimated GFR (MDRD) BUN/Creatinine Ratio (No establ ref range) Glucose (74-99) mg/dL Lactic Acid 2.1 H* (0.4-2.0) mmol/L Calcium (8.5-10.1) mg/dL Total Bilirubin (0.2-1.0) mg/dL AST (15-37) U/L ALT (14-59) U/L Alkaline Phosphatase (46-116) U/L Troponin I (0.000-0.056) ng/mL B-Natriuretic Peptide 255 H (0-100) pg/ml Total Protein (6.4-8.2) g/dL Albumin (3.4-5.0) g/dL Globulin Albumin/Globulin Ratio Urine Color (YELLOW) Urine Appearance (CLEAR) Urine pH (5.0-9.0) Ur Specific [place] (1.005-1.030) Urine Protein (NEGATIVE) Urine Glucose (UA) (NEGATIVE) Urine Ketones (NEGATIVE) Urine Occult Blood (NEGATIVE) Urine Nitrite (NEGATIVE) Urine Bilirubin (NEGATIVE) Urine Urobilinogen (0.2-1.0) mg/dL Ur Leukocyte Esterase (NEGATIVE) U Hyaline Cast (Auto) Urine RBC /HPF Urine WBC (0-5/HPF) /HPF Ur Epithelial Cells (NOT SEEN) /HPF Urine Bacteria (0-FEW/HPF) /HPF Digoxin (0.9-2.0) ng/mL 02/29/20 02/29/20 02/29/20 Range/Units 13:32 13:32 14:40 WBC (5.0-10.0) 10^3/uL RBC (4.2-5.4) 10^6/uL Hgb (12.0-16.0) g/dL Hct (37.0-47.0) % MCV (80-100) fL MCH (27.0-34.0) pg MCHC (33.0-35.0) g/dL Plt Count (150-450) 10^3/uL Neut % (Auto) (42.2-75.2) % Lymph % (Auto) (20.5-50.1) % [place] % (Auto) (2-8) % Eos % (Auto) (1.0-3.0) % Baso % (Auto) (0.0-1.0) % Add Manual Diff Neutrophils % (Manual) (42-75) % Lymphocytes % (Manual) (20-50) % Monocytes % (Manual) (2-8) % Toxic Granulation Hypochromasia Sodium 141 (136-145) mmol/L Potassium 4.1 (3.5-5.1) mmol/L Chloride 93 L (98-107) mmol/L Carbon Dioxide > 45 H* (21-32) mmol/L Anion Gap 7.56119 (7-13) mEq/L BUN 26 H (7-18) mg/dL Creatinine 1.39 H (0.55-1.02) mg/dL Est Cr Clr Drug Dosing 25.09 mL/min Estimated GFR (MDRD) 36 BUN/Creatinine Ratio 18.7 (No establ ref range) Glucose 102 H (74-99) mg/dL Lactic Acid (0.4-2.0) mmol/L Calcium 8.9 (8.5-10.1) mg/dL Total Bilirubin 0.4 (0.2-1.0) mg/dL AST 16 (15-37) U/L ALT 13 L (14-59) U/L Alkaline Phosphatase 101 (46-116) U/L Troponin I < 0.017 (0.000-0.056) ng/mL B-Natriuretic Peptide (0-100) pg/ml Total Protein 6.3 L (6.4-8.2) g/dL Albumin 3.2 L (3.4-5.0) g/dL Globulin 3.1 Albumin/Globulin Ratio 1.03 Urine Color Yellow (YELLOW) Urine Appearance Slightly cloudy (CLEAR) Urine pH 6.5 (5.0-9.0) Ur Specific [place] 1.020 (1.005-1.030) Urine Protein Negative (NEGATIVE) Urine Glucose (UA) Negative (NEGATIVE) Urine Ketones Negative (NEGATIVE) Urine Occult Blood Negative (NEGATIVE) Urine Nitrite Negative (NEGATIVE) Urine Bilirubin Negative (NEGATIVE) Urine Urobilinogen 0.2 (0.2-1.0) mg/dL Ur Leukocyte Esterase Small H (NEGATIVE) U Hyaline Cast (Auto) Moderate Urine RBC 0-5 /HPF Urine WBC 10-20 H (0-5/HPF) /HPF Ur Epithelial Cells Few (NOT SEEN) /HPF Urine Bacteria Many H (0-FEW/HPF) /HPF Digoxin 0.5 L (0.9-2.0) ng/mL Result Diagrams: 02/29/20 13:32 02/29/20 13:32 Problem List Initiated/Reviewed/Updated: Yes Orders Last 24hrs: Active Orders 24 hr Category Date Time Status Admission Diagnosis [ADT] Urgent ADT 02/29/20 15:17 Ordered Admission Status [Patient Status] [ADT] Routine ADT 02/29/20 15:17 Active EKG Documentation Completion [RC] URGENT Care 02/29/20 13:18 Active CULTURE BLOOD [BC] Stat Lab 02/29/20 13:32 Received CULTURE URINE [RM] Urgent Lab 02/29/20 14:40 Received Acetaminophen [Tylenol Extra Strength] Med 02/29/20 21:00 Ordered 500 mg PO BID Albuterol/Ipratropium [DuoNeb 3.0-0.5 MG/3 ML] Med 02/29/20 21:00 Ordered 3 ml NEB TID Budesonide [Pulmicort] Med 02/29/20 21:00 Ordered 0.5 mg NEB BID Ciprofloxacin in D5W [Cipro in D5W 400 MG/200 ML] 400 Med 02/29/20 21:00 Ordered mg Premix Bag 1 bag IV Q12HR Digoxin [Lanoxin] Med 02/29/20 16:15 Ordered 125 mcg PO Q48H Docusate Sodium [Colace] Med 02/29/20 21:00 Ordered 100 mg PO BID Ferrous Sulfate Med 02/29/20 21:00 Ordered 325 mg PO BID Furosemide [Lasix] Med 02/29/20 16:15 Ordered 20 mg IVPUSH Q8H Levothyroxine Med 03/01/20 09:00 Ordered 112 mcg PO DAILY Metoprolol Tartrate [Lopressor] Med 02/29/20 21:00 Ordered 25 mg PO BID Montelukast [Singulair] Med 02/29/20 21:00 Ordered 10 mg PO BEDTIME Potassium Chloride [Potassium Chloride] Med 02/29/20 21:00 Ordered 10 meq PO BEDTIME Rivaroxaban Med 03/01/20 09:00 Ordered 15 mg PO DAILY allopurinoL [Zyloprim] Med 03/01/20 09:00 Ordered 200 mg PO DAILY atorvaSTATin [Lipitor] Med 02/29/20 21:00 Ordered 20 mg PO BEDTIME polyethylene glycoL 3350 [MiraLAX] Med 03/01/20 09:00 Ordered 17 gm PO DAILY predniSONE Med 03/01/20 08:00 Ordered 40 mg PO WITHBREAKFAST Medication Orders Acetaminophen (Tylenol Extra Strength) 500 mg PO BID TAMI Albuterol/Ipratropium (Duoneb 3.0-0.5 Mg/3 Ml) 3 ml NEB TID TAMI Allopurinol (Zyloprim) 200 mg PO DAILY [facility] Atorvastatin Calcium (Lipitor) 20 mg PO BEDTIME TAMI Budesonide (Pulmicort) 0.5 mg NEB BID TAMI Digoxin (Lanoxin) 125 mcg PO Q48H TAMI Docusate Sodium (Colace) 100 mg PO BID TAMI Ferrous Sulfate (Ferrous Sulfate) 325 mg PO BID TAMI Furosemide (Lasix) 20 mg IVPUSH Q8H TAMI Ciprofloxacin/Dextrose 400 mg/ (Premix) 200 mls @ 200 mls/hr IV Q12HR TAMI Levothyroxine Sodium (Levothyroxine) 112 mcg PO DAILY [facility] Metoprolol Tartrate (Lopressor) 25 mg PO BID TAMI Montelukast Sodium (Singulair) 10 mg PO BEDTIME TAMI Non-Formulary Medication (Potassium Chloride [Potassium Chloride]) 10 meq PO BEDTIME TAMI Non-Formulary Medication (Rivaroxaban) 15 mg PO DAILY [facility] Polyethylene Glycol (Miralax) 17 gm PO DAILY TAMI Prednisone (Prednisone) 40 mg PO WITHBREAKFAST [facility] Assessment/Plan Comment:: Shortness of breath This is likely multifactorial, likely a CHF component, COPD component. Chronic hypoxemic respiratory failure Continue oxygen supplement as needed The patient has been on 2 L nasal cannula oxygen at home prior to admission Acute COPD exacerbation Has wheezing, shortness of breath We'll give DuoNeb scheduled and as needed Start prednisone Continue Singulair Acute diastolic congestive heart failure We'll continue metoprolol Change to IV Lasix Follow weight Urinary tract infection Abnormal UA, normal white count Start the patient on ciprofloxacin Atrial fibrillation Rate control with metoprolol, digoxin Anticoagulation with xarelto DVT prophylaxis will be with full dose anticoagulation with Xarelto
[2020-02-29] MEDS: Digoxin 125 MCG Tab PO SCH (17:28)
[2020-02-29] MEDS: Rivaroxaban 10 MG Tab PO SCH (17:30)
[2020-02-29] MEDS: Sodium Chloride 0.9% 10 ML Syringe FLUSH PRN (17:31)
[2020-02-29] MEDS: Furosemide 20 MG/2 ML VIAL IV SCH (17:31)
[2020-02-29] MEDS: Ciprofloxacin in D5W 400 MG in Premix Bag 1 BAG IV SCH ×2 (21:10)
[2020-02-29] MEDS: Acetaminophen 500 MG Tab PO SCH (21:15)
[2020-02-29] MEDS: Docusate Sodium 100 MG Cap PO SCH (21:15)
[2020-02-29] MEDS: atorvaSTATin 20 MG Tab PO SCH (21:16)
[2020-02-29] MEDS: Ferrous Sulfate 325 MG Tab PO SCH (21:16)
[2020-02-29] MEDS: Montelukast 10 MG Tab PO SCH (21:16)
[2020-02-29] MEDS: Potassium Chloride 10 MEQ Tab.ER PO SCH (21:17)
[2020-02-29] MEDS: Metoprolol Tartrate 25 MG Tab PO SCH (21:23)
[2020-02-29] MEDS: Albuterol/Ipratropium 3.0-0.5 MG/3 ML Neb Soln NEB SCH (21:26)
[2020-02-29] MEDS: Budesonide 0.5 MG/2 ML Neb Susp NEB SCH (21:26)
[2020-02-29] MEDS: Menthol/Methyl Salicylate 85 GM Tube TOP PRN (21:51)
[2020-03-01] MEDS: Furosemide 20 MG/2 ML VIAL IV SCH ×3 (00:20→16:44)
[2020-03-01] MEDS: Sodium Chloride 0.9% 10 ML Syringe FLUSH PRN ×2 (00:20→16:44)
[2020-03-01 06:50] LABS: CHLORIDE,CL 94 mmol/L (98-107); SODIUM,NA 140 mmol/L (136-145)
[2020-03-01 07:15] LABS: ANION GAP 5.19999 mEq/L (7-13)
[2020-03-01] MEDS: Albuterol/Ipratropium 3.0-0.5 MG/3 ML Neb Soln NEB SCH ×3 (07:43→21:35)
[2020-03-01] MEDS: Polyethylene Glycol 3350 Powder 17 GM Packet PO SCH (09:01)
[2020-03-01] MEDS: Ciprofloxacin in D5W 400 MG in Premix Bag 1 BAG IV SCH ×2 (09:01)
[2020-03-01] MEDS: Levothyroxine 112 MCG Tab PO SCH (09:01)
[2020-03-01] MEDS: Docusate Sodium 100 MG Cap PO SCH ×2 (09:01→21:24)
[2020-03-01] MEDS: predniSONE 20 MG Tab PO SCH (09:02)
[2020-03-01] MEDS: Allopurinol 100 MG Tab PO SCH (09:02)
[2020-03-01] MEDS: Acetaminophen 500 MG Tab PO SCH ×2 (09:02→21:27)
[2020-03-01] MEDS: Ferrous Sulfate 325 MG Tab PO SCH ×2 (09:02→21:23)
[2020-03-01] MEDS: Metoprolol Tartrate 25 MG Tab PO SCH ×2 (09:02→21:25)
[2020-03-01] MEDS: Budesonide 0.5 MG/2 ML Neb Susp NEB SCH ×2 (10:34→17:56)
--- NOTE | 2020-03-01 11:54 | PCM.PN ---
- General Info Date of Service: 03/01/20 Functional Status: Reports: Pain Controlled - Review of Systems General: Denies: Fever Pulmonary: Reports: Shortness of Breath (improved) Cardiovascular: Reports: Edema. Denies: Chest Pain Genitourinary: Denies: Dysuria Psychiatric: Reports: Confusion - Patient Data Vitals - Most Recent: Last Vital Signs Temp 96.9 F 03/01/20 08:36 Pulse 90 03/01/20 09:02 Resp 20 03/01/20 08:36 BP 124/47 L 03/01/20 09:02 Pulse Ox 100 03/01/20 08:36 Weight - Most Recent: 214 lb 6.4 oz I&O - Last 24 Hours: Intake & Output 02/29/20 03/01/20 03/01/20 22:59 06:59 14:59 Intake Total 200 585 Output Total 100 Balance 100 585 Lab Results Last 24 Hours: Laboratory Results - last 24 hr 02/29/20 02/29/20 02/29/20 Range/Units 13:32 13:32 13:32 WBC 12.6 H (5.0-10.0) 10^3/uL RBC 2.97 L (4.2-5.4) 10^6/uL Hgb 8.7 L D (12.0-16.0) g/dL Hct 30.4 L (37.0-47.0) % MCV 102.4 H D (80-100) fL MCH 29.3 (27.0-34.0) pg MCHC 28.6 L (33.0-35.0) g/dL Plt Count 315 (150-450) 10^3/uL Neut % (Auto) 79.9 H (42.2-75.2) % Lymph % (Auto) 8.9 L (20.5-50.1) % [place] % (Auto) 9.2 H (2-8) % Eos % (Auto) 1.4 (1.0-3.0) % Baso % (Auto) 0.6 (0.0-1.0) % Add Manual Diff Yes Neutrophils % (Manual) 78 H (42-75) % Lymphocytes % (Manual) 15 L (20-50) % Monocytes % (Manual) 7 (2-8) % Toxic Granulation 1+ slight Hypochromasia 2+ moderate Sodium (136-145) mmol/L Potassium (3.5-5.1) mmol/L Chloride (98-107) mmol/L Carbon Dioxide (21-32) mmol/L Anion Gap (7-13) mEq/L BUN (7-18) mg/dL Creatinine (0.55-1.02) mg/dL Est Cr Clr Drug Dosing mL/min Estimated GFR (MDRD) BUN/Creatinine Ratio (No establ ref range) Glucose (74-99) mg/dL Lactic Acid 2.1 H* (0.4-2.0) mmol/L Calcium (8.5-10.1) mg/dL Total Bilirubin (0.2-1.0) mg/dL AST (15-37) U/L ALT (14-59) U/L Alkaline Phosphatase (46-116) U/L Troponin I (0.000-0.056) ng/mL B-Natriuretic Peptide 255 H (0-100) pg/ml Total Protein (6.4-8.2) g/dL Albumin (3.4-5.0) g/dL Globulin Albumin/Globulin Ratio Urine Color (YELLOW) Urine Appearance (CLEAR) Urine pH (5.0-9.0) Ur Specific [place] (1.005-1.030) Urine Protein (NEGATIVE) Urine Glucose (UA) (NEGATIVE) Urine Ketones (NEGATIVE) Urine Occult Blood (NEGATIVE) Urine Nitrite (NEGATIVE) Urine Bilirubin (NEGATIVE) Urine Urobilinogen (0.2-1.0) mg/dL Ur Leukocyte Esterase (NEGATIVE) U Hyaline Cast (Auto) Urine RBC /HPF Urine WBC (0-5/HPF) /HPF Ur Epithelial Cells (NOT SEEN) /HPF Urine Bacteria (0-FEW/HPF) /HPF Digoxin (0.9-2.0) ng/mL 02/29/20 02/29/20 02/29/20 Range/Units 13:32 13:32 14:40 WBC (5.0-10.0) 10^3/uL RBC (4.2-5.4) 10^6/uL Hgb (12.0-16.0) g/dL Hct (37.0-47.0) % MCV (80-100) fL MCH (27.0-34.0) pg MCHC (33.0-35.0) g/dL Plt Count (150-450) 10^3/uL Neut % (Auto) (42.2-75.2) % Lymph % (Auto) (20.5-50.1) % [place] % (Auto) (2-8) % Eos % (Auto) (1.0-3.0) % Baso % (Auto) (0.0-1.0) % Add Manual Diff Neutrophils % (Manual) (42-75) % Lymphocytes % (Manual) (20-50) % Monocytes % (Manual) (2-8) % Toxic Granulation Hypochromasia Sodium 141 (136-145) mmol/L Potassium 4.1 (3.5-5.1) mmol/L Chloride 93 L (98-107) mmol/L Carbon Dioxide > 45 H* (21-32) mmol/L Anion Gap 7.88894 (7-13) mEq/L BUN 26 H (7-18) mg/dL Creatinine 1.39 H (0.55-1.02) mg/dL Est Cr Clr Drug Dosing 25.09 mL/min Estimated GFR (MDRD) 36 BUN/Creatinine Ratio 18.7 (No establ ref range) Glucose 102 H (74-99) mg/dL Lactic Acid (0.4-2.0) mmol/L Calcium 8.9 (8.5-10.1) mg/dL Total Bilirubin 0.4 (0.2-1.0) mg/dL AST 16 (15-37) U/L ALT 13 L (14-59) U/L Alkaline Phosphatase 101 (46-116) U/L Troponin I < 0.017 (0.000-0.056) ng/mL B-Natriuretic Peptide (0-100) pg/ml Total Protein 6.3 L (6.4-8.2) g/dL Albumin 3.2 L (3.4-5.0) g/dL Globulin 3.1 Albumin/Globulin Ratio 1.03 Urine Color Yellow (YELLOW) Urine Appearance Slightly cloudy (CLEAR) Urine pH 6.5 (5.0-9.0) Ur Specific [place] 1.020 (1.005-1.030) Urine Protein Negative (NEGATIVE) Urine Glucose (UA) Negative (NEGATIVE) Urine Ketones Negative (NEGATIVE) Urine Occult Blood Negative (NEGATIVE) Urine Nitrite Negative (NEGATIVE) Urine Bilirubin Negative (NEGATIVE) Urine Urobilinogen 0.2 (0.2-1.0) mg/dL Ur Leukocyte Esterase Small H (NEGATIVE) U Hyaline Cast (Auto) Moderate Urine RBC 0-5 /HPF Urine WBC 10-20 H (0-5/HPF) /HPF Ur Epithelial Cells Few (NOT SEEN) /HPF Urine Bacteria Many H (0-FEW/HPF) /HPF Digoxin 0.5 L (0.9-2.0) ng/mL 03/01/20 03/01/20 Range/Units 05:45 05:45 WBC 8.7 (5.0-10.0) 10^3/uL RBC 2.61 L (4.2-5.4) 10^6/uL Hgb 7.5 L (12.0-16.0) g/dL Hct 26.9 L (37.0-47.0) % MCV 103.1 H (80-100) fL MCH 28.7 (27.0-34.0) pg MCHC 27.9 L (33.0-35.0) g/dL Plt Count 289 (150-450) 10^3/uL Neut % (Auto) 74.9 (42.2-75.2) % Lymph % (Auto) 12.8 L (20.5-50.1) % [place] % (Auto) 10.0 H (2-8) % Eos % (Auto) 2.0 (1.0-3.0) % Baso % (Auto) 0.3 (0.0-1.0) % Add Manual Diff Neutrophils % (Manual) (42-75) % Lymphocytes % (Manual) (20-50) % Monocytes % (Manual) (2-8) % Toxic Granulation Hypochromasia Sodium 140 (136-145) mmol/L Potassium 4.2 (3.5-5.1) mmol/L Chloride 94 L (98-107) mmol/L Carbon Dioxide > 45 H* (21-32) mmol/L Anion Gap 5.05067 L (7-13) mEq/L BUN 27 H (7-18) mg/dL Creatinine 1.43 H (0.55-1.02) mg/dL Est Cr Clr Drug Dosing 24.38 mL/min Estimated GFR (MDRD) 35 BUN/Creatinine Ratio (No establ ref range) Glucose 96 (74-99) mg/dL Lactic Acid (0.4-2.0) mmol/L Calcium 8.3 L (8.5-10.1) mg/dL Total Bilirubin (0.2-1.0) mg/dL AST (15-37) U/L ALT (14-59) U/L Alkaline Phosphatase (46-116) U/L Troponin I (0.000-0.056) ng/mL B-Natriuretic Peptide (0-100) pg/ml Total Protein (6.4-8.2) g/dL Albumin (3.4-5.0) g/dL Globulin Albumin/Globulin Ratio Urine Color (YELLOW) Urine Appearance (CLEAR) Urine pH (5.0-9.0) Ur Specific [place] (1.005-1.030) Urine Protein (NEGATIVE) Urine Glucose (UA) (NEGATIVE) Urine Ketones (NEGATIVE) Urine Occult Blood (NEGATIVE) Urine Nitrite (NEGATIVE) Urine Bilirubin (NEGATIVE) Urine Urobilinogen (0.2-1.0) mg/dL Ur Leukocyte Esterase (NEGATIVE) U Hyaline Cast (Auto) Urine RBC /HPF Urine WBC (0-5/HPF) /HPF Ur Epithelial Cells (NOT SEEN) /HPF Urine Bacteria (0-FEW/HPF) /HPF Digoxin (0.9-2.0) ng/mL Med Orders - Current: Current Medications Acetaminophen (Tylenol Extra Strength) 500 mg PO BID [facility] Last Admin: 03/01/20 09:02 Dose: 500 mg Acetaminophen (Tylenol) 650 mg PO Q4H PRN PRN Reason: Pain (Mild 1-3)/fever Hydrocodone Bitart/Acetaminophen ([place] 325-10 Mg) 1 tab PO Q4H PRN PRN Reason: Pain (moderate 4-6) Albuterol/Ipratropium (Duoneb 3.0-0.5 Mg/3 Ml) 3 ml NEB TIDRT [facility] Last Admin: 03/01/20 07:43 Dose: 3 ml Allopurinol (Zyloprim) 200 mg PO DAILY [facility] Last Admin: 03/01/20 09:02 Dose: 200 mg Atorvastatin Calcium (Lipitor) 20 mg PO BEDTIME [facility] Last Admin: 02/29/20 21:16 Dose: 20 mg Budesonide (Pulmicort) 0.5 mg NEB BIDRT [facility] Digoxin (Lanoxin) 125 mcg PO Q48H [facility] Last Admin: 02/29/20 17:28 Dose: 125 mcg Docusate Sodium (Colace) 100 mg PO BID [facility] Last Admin: 03/01/20 09:01 Dose: 100 mg Ferrous Sulfate (Ferrous Sulfate) 325 mg PO BID [facility] Last Admin: 03/01/20 09:02 Dose: 325 mg Furosemide (Lasix) 20 mg IV Q8H [facility] Last Admin: 03/01/20 09:02 Dose: 20 mg Ciprofloxacin/Dextrose 400 mg/ (Premix) 200 mls @ 200 mls/hr IV Q12HR [facility] Last Admin: 03/01/20 09:01 Dose: 200 mls/hr Levothyroxine Sodium (Levothyroxine) 112 mcg PO DAILY [facility] Last Admin: 03/01/20 09:01 Dose: 112 mcg Methyl Salicylate (Icy Hot Cream) 0 gm TOP QID PRN PRN Reason: Pain (mild 1-3) Last Admin: 02/29/20 21:51 Dose: 1 applic Metoprolol Tartrate (Lopressor) 25 mg PO BID [facility] Last Admin: 03/01/20 09:02 Dose: 25 mg Montelukast Sodium (Singulair) 10 mg PO BEDTIME [facility] Last Admin: 02/29/20 21:16 Dose: 10 mg Ondansetron HCl (Zofran Odt) 4 mg PO Q6H PRN PRN Reason: nausea, able to take PO Ondansetron HCl (Zofran) 4 mg IVPUSH Q6H PRN PRN Reason: Nausea/Vomiting Polyethylene Glycol (Miralax) 17 gm PO DAILY [facility] Last Admin: 03/01/20 09:01 Dose: 17 gm Potassium Chloride (Klor-Con 10) 10 meq PO BEDTIME [facility] Last Admin: 02/29/20 21:17 Dose: 10 meq Prednisone (Prednisone) 40 mg PO WITHBREAKFAST [facility] Last Admin: 03/01/20 09:02 Dose: 40 mg Rivaroxaban (Xarelto) 15 mg PO WITHDINNER [facility] Last Admin: 02/29/20 17:30 Dose: 15 mg Sodium Chloride (Saline Flush) 10 ml FLUSH ASDIRECTED PRN PRN Reason: Keep Vein Open Last Admin: 03/01/20 00:20 Dose: 10 ml Temazepam (Restoril) 15 mg PO BEDTIME PRN PRN Reason: Sleep Discontinued Medications Budesonide (Pulmicort) 0.5 mg NEB BID [facility] Last Admin: 03/01/20 10:34 Dose: Not Given - Exam General: Alert, Oriented Lungs: Normal Respiratory Effort, Decreased Breath Sounds. No: Wheezing Cardiovascular: Regular Rate, Regular Rhythm GI/Abdominal Exam: Normal Bowel Sounds, Soft, Non-Tender Extremities: Pedal Edema Skin: Warm, Dry Neurological: No New Focal Deficit Psy/Mental Status: Alert, Normal Affect, Normal Mood Sepsis Event Note - Evaluation Sepsis Screening Result: No Definite Risk - Focused Exam Vital Signs: Vital Signs Temp Pulse Pulse Pulse Resp BP BP 03/01/20 09:02 90 124/47 L 03/01/20 08:36 96.9 F 90 20 124/47 L 03/01/20 07:43 87 03/01/20 04:00 97.8 F 100 18 124/44 L 03/01/20 00:00 98.2 F 107 H 20 117/46 L Pulse Ox Pulse Ox 03/01/20 09:02 03/01/20 08:36 100 03/01/20 07:43 91 L 03/01/20 04:00 93 L 03/01/20 00:00 90 L Date Exam was Performed: 03/01/20 Time Exam was Performed: 11:49 - Problem List & Annotations (1) Atrial fibrillation SNOMED Code(s): 99969905 Code(s): I48.91 - UNSPECIFIED ATRIAL FIBRILLATION Status: Acute Current Visit: No (2) CHF (congestive heart failure) SNOMED Code(s): 44168808 Code(s): I50.9 - HEART FAILURE, UNSPECIFIED Status: Acute Current Visit: No Qualifiers: Qualified Code(s): I50.33 - Acute on chronic diastolic (congestive) heart failure (3) Urinary tract infection SNOMED Code(s): 60243555 Code(s): N39.0 - URINARY TRACT INFECTION, SITE NOT SPECIFIED Status: Acute Current Visit: No Qualifiers: Urinary tract infection type: acute cystitis Hematuria presence: with hematuria Qualified Code(s): N30.01 - Acute cystitis with hematuria (4) HTN (hypertension) SNOMED Code(s): 59197657 Code(s): I10 - ESSENTIAL (PRIMARY) HYPERTENSION Status: Chronic Priority : Medium Current Visit: No Qualifiers: Hypertension type: essential hypertension Qualified Code(s): I10 - Essential (primary) hypertension - Problem List Review Problem List Initiated/Reviewed/Updated: Yes - My Orders Last 24 Hours: My Active Orders 02/29/20 16:15 Digoxin [Lanoxin] 125 mcg PO Q48H 02/29/20 16:22 Oxygen Therapy [RC] .PRN Up With Assistance [RC] ASDIRECTED VTE/DVT Education [RC] PER UNIT ROUTINE Vital Signs [RC] 00,04,08,12,16,20 Acetaminophen [Tylenol] 650 mg PO Q4H PRN Acetaminophen/HYDROcodone [[place] 325-10 MG] 1 tab PO Q4H PRN Ondansetron [Zofran ODT] 4 mg PO Q6H PRN Ondansetron [Zofran] 4 mg IVPUSH Q6H PRN Sodium Chloride 0.9% [Saline Flush] 10 ml FLUSH ASDIRECTED PRN Temazepam [Restoril] 15 mg PO BEDTIME PRN Antiembolic Hose [OM.PC] Per Unit Routine Peripheral IV Insertion Adult [OM.PC] Routine Saline Lock Insert [OM.PC] Routine Resuscitation Status Routine 02/29/20 16:23 Antiembolic Devices [RC] PER UNIT ROUTINE Peripheral IV Care [RC] ,02/29/20 16:30 Furosemide [Lasix] 20 mg IV Q8H 02/29/20 18:00 Rivaroxaban [Xarelto] 15 mg PO WITHDINNER 02/29/20 20:48 Menthol/Methyl Salicylate [Icy Hot Cream] 0 gm TOP QID PRN 02/29/20 21:00 Acetaminophen [Tylenol Extra Strength] 500 mg PO BID Albuterol/Ipratropium [DuoNeb 3.0-0.5 MG/3 ML] 3 ml NEB TIDRT Ciprofloxacin in D5W [Cipro in D5W 400 MG/200 ML] 400 mg Premix Bag 1 bag IV Q12HR Docusate Sodium [Colace] 100 mg PO BID Ferrous Sulfate 325 mg PO BID Metoprolol Tartrate [Lopressor] 25 mg PO BID Montelukast [Singulair] 10 mg PO BEDTIME Potassium Chloride [Klor-Con 10] 10 meq PO BEDTIME atorvaSTATin [Lipitor] 20 mg PO BEDTIME 02/29/20 Dinner Heart Healthy Diet [DIET] 03/01/20 08:00 predniSONE 40 mg PO WITHBREAKFAST 03/01/20 09:00 Levothyroxine 112 mcg PO DAILY allopurinoL [Zyloprim] 200 mg PO DAILY polyethylene glycoL 3350 [MiraLAX] 17 gm PO DAILY 03/01/20 10:04 CORONAVIRUS COVID-19 PCR PHL Routine 03/01/20 18:00 Budesonide [Pulmicort] 0.5 mg NEB BIDRT 03/02/20 05:15 BASIC METABOLIC PANEL,BMP [CHEM] AM CBC WITH AUTO DIFF [HEME] AM - Plan Plan:: Shortness of breath This is likely multifactorial, likely a CHF component, COPD component. Chronic hypoxemic respiratory failure Continue oxygen supplement as needed The patient has been on 2 L nasal cannula oxygen at home prior to admission Acute COPD exacerbation Has wheezing, shortness of breath continue to give DuoNeb scheduled and as needed cont prednisone - taper slowly Continue Singulair Acute diastolic congestive heart failure We'll continue metoprolol Changed to IV Lasix Follow weight Urinary tract infection Abnormal UA, normal white count Started the patient on ciprofloxacin Atrial fibrillation Rate control with metoprolol, digoxin Anticoagulation with xarelto DVT prophylaxis will be with full dose anticoagulation with Xarelto
[2020-03-01] MEDS: Rivaroxaban 10 MG Tab PO SCH (17:56)
[2020-03-01] MEDS: Potassium Chloride 10 MEQ Tab.ER PO SCH (21:23)
[2020-03-01] MEDS: Montelukast 10 MG Tab PO SCH (21:23)
[2020-03-01] MEDS: atorvaSTATin 20 MG Tab PO SCH (21:24)
[2020-03-01] MEDS: Menthol/Methyl Salicylate 85 GM Tube TOP PRN (21:28)
[2020-03-02] MEDS: Furosemide 20 MG/2 ML VIAL IV SCH ×4 (01:00→23:36)
[2020-03-02 07:11] LABS: CHLORIDE,CL 94 mmol/L (98-107); SODIUM,NA 138 mmol/L (136-145)
[2020-03-02 07:16] LABS: ANION GAP 2.79999 mEq/L (7-13)
[2020-03-02] MEDS: Albuterol/Ipratropium 3.0-0.5 MG/3 ML Neb Soln NEB SCH ×3 (07:27→20:52)
[2020-03-02] MEDS: Budesonide 0.5 MG/2 ML Neb Susp NEB SCH ×2 (07:27→17:58)
[2020-03-02] MEDS: Allopurinol 100 MG Tab PO SCH (08:52)
[2020-03-02] MEDS: Docusate Sodium 100 MG Cap PO SCH ×2 (08:52→20:52)
[2020-03-02] MEDS: Levothyroxine 112 MCG Tab PO SCH (08:52)
[2020-03-02] MEDS: predniSONE 20 MG Tab PO SCH (08:53)
[2020-03-02] MEDS: Ferrous Sulfate 325 MG Tab PO SCH ×2 (08:53→20:52)
[2020-03-02] MEDS: Metoprolol Tartrate 25 MG Tab PO SCH ×2 (08:57→20:52)
[2020-03-02] MEDS: Ciprofloxacin in D5W 400 MG in Premix Bag 1 BAG IV SCH ×2 (09:09)
[2020-03-02] MEDS: Acetaminophen 500 MG Tab PO SCH ×2 (09:12→20:52)
[2020-03-02] MEDS: Polyethylene Glycol 3350 Powder 17 GM Packet PO SCH (09:13)
--- NOTE | 2020-03-02 10:37 | PCM.PN ---
- General Info Date of Service: 03/02/20 Admission Dx/Problem (Free Text): Admission Diagnosis/Problem Admission Diagnosis/Problem CHF, Congestive heart failure Subjective Update: Electronic swelling is still present but improved since admission No shortness of breath with oxygen and at rest Had black stool, no associated abdominal pain. No fever or chills. Functional Status: Reports: Pain Controlled, Tolerating Diet - Review of Systems General: Reports: Weakness. Denies: Fever Pulmonary: Reports: Shortness of Breath. Denies: Cough Cardiovascular: Reports: Edema. Denies: Chest Pain Neurological: Denies: Confusion - Patient Data Vitals - Most Recent: Last Vital Signs Temp 99.1 F 03/02/20 08:13 Pulse 97 03/02/20 08:57 Resp 18 03/02/20 08:13 BP 126/46 L 03/02/20 08:57 Pulse Ox 95 03/02/20 08:13 Weight - Most Recent: 214 lb 14.4 oz I&O - Last 24 Hours: Intake & Output 03/01/20 03/02/20 03/02/20 22:59 06:59 14:59 Intake Total 510 360 Balance 510 360 Lab Results Last 24 Hours: Laboratory Results - last 24 hr 03/02/20 03/02/20 03/02/20 Range/Units 06:00 06:00 06:00 WBC 11.9 H (5.0-10.0) 10^3/uL RBC 2.38 L (4.2-5.4) 10^6/uL Hgb 6.8 L* (12.0-16.0) g/dL Hct 24.1 L (37.0-47.0) % MCV 101.3 H (80-100) fL MCH 28.6 (27.0-34.0) pg MCHC 28.2 L (33.0-35.0) g/dL Plt Count 293 (150-450) 10^3/uL Neut % (Auto) 82.6 H (42.2-75.2) % Lymph % (Auto) 8.2 L (20.5-50.1) % [place] % (Auto) 8.8 H (2-8) % Eos % (Auto) 0.2 L (1.0-3.0) % Baso % (Auto) 0.2 (0.0-1.0) % Sodium 138 (136-145) mmol/L Potassium 3.8 (3.5-5.1) mmol/L Chloride 94 L (98-107) mmol/L Carbon Dioxide > 45 H* (21-32) mmol/L Anion Gap 2.15967 L (7-13) mEq/L BUN 39 H (7-18) mg/dL Creatinine 1.49 H (0.55-1.02) mg/dL Est Cr Clr Drug Dosing 23.40 mL/min Estimated GFR (MDRD) 33 Glucose 122 H (74-99) mg/dL Calcium 8.2 L (8.5-10.1) mg/dL Iron 40 L (50-175) ug/dL TIBC 357 (250-450) ug/dL % Saturation 11.2 L (20.0-50.0) % Vitamin B12 262 (193-986) pg/mL Raghavendra Results Last 24 Hours: Microbiology 02/29/20 14:40 Urine Culture - Preliminary Urine, Voided 02/29/20 13:32 Aerobic Blood Culture - Preliminary Blood NO GROWTH AFTER 1 DAY Anaerobic Blood Culture - Preliminary NO GROWTH AFTER 1 DAY Med Orders - Current: Current Medications Acetaminophen (Tylenol Extra Strength) 500 mg PO BID [facility] Last Admin: 03/02/20 09:12 Dose: Not Given Acetaminophen (Tylenol) 650 mg PO Q4H PRN PRN Reason: Pain (Mild 1-3)/fever Hydrocodone Bitart/Acetaminophen ([place] 325-10 Mg) 1 tab PO Q4H PRN PRN Reason: Pain (moderate 4-6) Albuterol/Ipratropium (Duoneb 3.0-0.5 Mg/3 Ml) 3 ml NEB TIDRT [facility] Last Admin: 03/02/20 07:27 Dose: 3 ml Allopurinol (Zyloprim) 200 mg PO DAILY [facility] Last Admin: 03/02/20 08:52 Dose: 200 mg Atorvastatin Calcium (Lipitor) 20 mg PO BEDTIME [facility] Last Admin: 03/01/20 21:24 Dose: 20 mg Budesonide (Pulmicort) 0.5 mg NEB BIDRT [facility] Last Admin: 03/02/20 07:27 Dose: 0.5 mg Digoxin (Lanoxin) 125 mcg PO Q48H [facility] Last Admin: 02/29/20 17:28 Dose: 125 mcg Docusate Sodium (Colace) 100 mg PO BID [facility] Last Admin: 03/02/20 08:52 Dose: 100 mg Ferrous Sulfate (Ferrous Sulfate) 325 mg PO BID [facility] Last Admin: 03/02/20 08:53 Dose: 325 mg Furosemide (Lasix) 20 mg IV Q8H [facility] Last Admin: 03/02/20 08:54 Dose: 20 mg Ciprofloxacin/Dextrose 400 mg/ (Premix) 200 mls @ 200 mls/hr IV Q24H [facility] Last Admin: 03/02/20 09:09 Dose: 200 mls/hr Levothyroxine Sodium (Levothyroxine) 112 mcg PO DAILY [facility] Last Admin: 03/02/20 08:52 Dose: 112 mcg Methyl Salicylate (Icy Hot Cream) 0 gm TOP QID PRN PRN Reason: Pain (mild 1-3) Last Admin: 03/01/20 21:28 Dose: 1 applic Metoprolol Tartrate (Lopressor) 25 mg PO BID [facility] Last Admin: 03/02/20 08:57 Dose: 25 mg Montelukast Sodium (Singulair) 10 mg PO BEDTIME [facility] Last Admin: 03/01/20 21:23 Dose: 10 mg Ondansetron HCl (Zofran Odt) 4 mg PO Q6H PRN PRN Reason: nausea, able to take PO Ondansetron HCl (Zofran) 4 mg IVPUSH Q6H PRN PRN Reason: Nausea/Vomiting [facility] Polyethylene Glycol (Miralax) 17 gm PO DAILY [facility] Last Admin: 03/02/20 09:13 Dose: 17 gm Potassium Chloride (Klor-Con 10) 10 meq PO BEDTIME [facility] Last Admin: 03/01/20 21:23 Dose: 10 meq Sodium Chloride (Saline Flush) 10 ml FLUSH ASDIRECTED PRN PRN Reason: Keep Vein Open Last Admin: 03/01/20 16:44 Dose: 10 ml Temazepam (Restoril) 15 mg PO BEDTIME PRN PRN Reason: Sleep Discontinued Medications Budesonide (Pulmicort) 0.5 mg NEB BID [facility] Last Admin: 03/01/20 10:34 Dose: Not Given Ciprofloxacin/Dextrose 400 mg/ (Premix) 200 mls @ 200 mls/hr IV Q12HR [facility] Last Admin: 03/01/20 09:01 Dose: 200 mls/hr Prednisone (Prednisone) 40 mg PO WITHBREAKFAST [facility] Last Admin: 03/02/20 08:53 Dose: 40 mg Rivaroxaban (Xarelto) 15 mg PO WITHDINNER [facility] Last Admin: 03/01/20 17:56 Dose: 15 mg - Exam Quality Assessment: Supplemental Oxygen General: Alert, Oriented Neck: Supple Lungs: Decreased Breath Sounds. No: Wheezing Cardiovascular: Irregular Rhythm GI/Abdominal Exam: Normal Bowel Sounds, Soft, Non-Tender, Other (Obese) Extremities: Pedal Edema (2+) Sepsis Event Note - Evaluation Sepsis Screening Result: No Definite Risk - Focused Exam Vital Signs: Vital Signs Temp Pulse Pulse Resp BP BP BP 03/02/20 08:57 97 126/46 L 03/02/20 08:13 99.1 F 97 18 126/46 L 03/02/20 07:28 97 03/02/20 04:00 98.1 F 107 H 18 119/54 L 03/02/20 00:00 97.7 F 97 20 109/43 L Pulse Ox 03/02/20 08:57 03/02/20 08:13 95 03/02/20 07:28 03/02/20 04:00 94 L 03/02/20 00:00 90 L Date Exam was Performed: 03/02/20 Time Exam was Performed: 10:41 - Problem List & Annotations (1) Atrial fibrillation SNOMED Code(s): 10420511 Code(s): I48.91 - UNSPECIFIED ATRIAL FIBRILLATION Status: Acute Current Visit: No (2) CHF (congestive heart failure) SNOMED Code(s): 35761134 Code(s): I50.9 - HEART FAILURE, UNSPECIFIED Status: Acute Current Visit: No (3) Urinary tract infection SNOMED Code(s): 39803013 Code(s): N39.0 - URINARY TRACT INFECTION, SITE NOT SPECIFIED Status: Acute Current Visit: No Qualifiers: Urinary tract infection type: acute cystitis Hematuria presence: with hematuria Qualified Code(s): N30.01 - Acute cystitis with hematuria (4) HTN (hypertension) SNOMED Code(s): 42195108 Code(s): I10 - ESSENTIAL (PRIMARY) HYPERTENSION Status: Chronic Priority : Medium Current Visit: No Qualifiers: Hypertension type: essential hypertension Qualified Code(s): I10 - Essential (primary) hypertension - Problem List Review Problem List Initiated/Reviewed/Updated: Yes - My Orders Last 24 Hours: My Active Orders 03/01/20 10:25 CORONAVIRUS COVID-19 PCR PHL Routine 03/01/20 18:00 Budesonide [Pulmicort] 0.5 mg NEB BIDRT 03/02/20 06:00 FOLIC ACID [CHEM] Routine RED BLOOD CELLS LP [BBK] Routine TYPE AND SCREEN [BBK] Routine 03/02/20 09:00 Ciprofloxacin in D5W [Cipro in D5W 400 MG/200 ML] 400 mg Premix Bag 1 bag IV Q24H 03/02/20 09:30 Pantoprazole [ProTONIX] 40 mg PO BIDAC 03/02/20 10:09 Transfuse RBC [Transfuse Red Blood Cells] [COMM] Routine 03/02/20 10:10 OCCULT BLOOD SCREEN [OP] Routine 03/03/20 05:15 BASIC METABOLIC PANEL,BMP [CHEM] AM CBC WITH AUTO DIFF [HEME] AM - Plan Plan:: Shortness of breath This is multifactorial, likely a CHF component, COPD component. Chronic hypoxemic respiratory failure Continue oxygen supplement as needed The patient has been on 2 L nasal cannula oxygen at home prior to admission Acute COPD exacerbation Has wheezing, shortness of breath continue to give DuoNeb scheduled and as needed stop prednisone - with concern of GI bleed Continue Singulair Acute diastolic congestive heart failure Obtain echo for further characterization We'll continue metoprolol Changed to IV Lasix Follow weight anemia h/o iron def anemia worsening black stool noted - will check for occult blood stop prednisone, xarelto add protonix BID, sucralfate, pepcid discussed the usual practice of GI evaluation, egd, possible malignancy - pt would like to hold off on procedures, medical management for now Urinary tract infection UA: gram neg Started the patient on ciprofloxacin Atrial fibrillation Rate control with metoprolol, digoxin stop Anticoagulation with xarelto re: gi bleed DVT prophylaxis will be with SCDs
[2020-03-02] MEDS: Famotidine 20 MG Tab PO SCH ×2 (11:54→20:52)
[2020-03-02] MEDS: Sucralfate 1 GM Tab PO SCH ×2 (11:55→16:16)
[2020-03-02] MEDS: Pantoprazole 40 MG Tab.CR PO SCH ×2 (11:56→16:16)
[2020-03-02] MEDS: Digoxin 125 MCG Tab PO SCH (16:16)
[2020-03-02] MEDS: Sodium Chloride 0.9% 10 ML Syringe FLUSH PRN ×2 (16:18→23:36)
[2020-03-02] MEDS: Potassium Chloride 10 MEQ Tab.ER PO SCH (20:52)
[2020-03-02] MEDS: Montelukast 10 MG Tab PO SCH (20:52)
[2020-03-02] MEDS: atorvaSTATin 20 MG Tab PO SCH (20:52)
[2020-03-02] MEDS: Menthol/Methyl Salicylate 85 GM Tube TOP PRN (23:36)
[2020-03-03] MEDS: Pantoprazole 40 MG Tab.CR PO SCH ×2 (05:36→15:59)
[2020-03-03] MEDS: Sucralfate 1 GM Tab PO SCH ×3 (05:36→15:59)
[2020-03-03 06:51] LABS: ANION GAP 3.1 mEq/L (7-13)
[2020-03-03] MEDS: Budesonide 0.5 MG/2 ML Neb Susp NEB SCH ×2 (07:17→18:10)
[2020-03-03] MEDS: Albuterol/Ipratropium 3.0-0.5 MG/3 ML Neb Soln NEB SCH ×3 (07:17→22:20)
[2020-03-03] MEDS: Ciprofloxacin in D5W 400 MG in Premix Bag 1 BAG IV SCH ×2 (09:11)
[2020-03-03] MEDS: Sodium Chloride 0.9% 10 ML Syringe FLUSH PRN ×3 (09:14→22:22)
[2020-03-03] MEDS: Polyethylene Glycol 3350 Powder 17 GM Packet PO SCH (09:20)
[2020-03-03] MEDS: Furosemide 20 MG/2 ML VIAL IV SCH (09:21)
[2020-03-03] MEDS: Famotidine 20 MG Tab PO SCH ×2 (09:21→22:08)
[2020-03-03] MEDS: Menthol/Methyl Salicylate 85 GM Tube TOP PRN ×2 (09:21→22:03)
[2020-03-03] MEDS: Allopurinol 100 MG Tab PO SCH (09:22)
[2020-03-03] MEDS: Ferrous Sulfate 325 MG Tab PO SCH ×2 (09:23→22:08)
[2020-03-03] MEDS: Docusate Sodium 100 MG Cap PO SCH ×2 (09:23→22:08)
[2020-03-03] MEDS: Levothyroxine 112 MCG Tab PO SCH (09:23)
[2020-03-03] MEDS: Metoprolol Tartrate 25 MG Tab PO SCH ×2 (09:23→22:13)
[2020-03-03] MEDS: Acetaminophen 500 MG Tab PO SCH ×2 (09:24→22:06)
--- NOTE | 2020-03-03 10:50 | PCM.PN ---
- General Info Date of Service: 03/03/20 Admission Dx/Problem (Free Text): Admission Diagnosis/Problem Admission Diagnosis/Problem CHF, Congestive heart failure Subjective Update: Lower extremity swelling is still present but improved since admission - wrinkles seen No shortness of breath with oxygen and at rest No fever or chills. feeling weak Functional Status: Reports: Pain Controlled, Tolerating Diet - Review of Systems General: Reports: Weakness. Denies: Fever Pulmonary: Reports: Shortness of Breath Cardiovascular: Denies: Chest Pain Gastrointestinal: Denies: Abdominal Pain Psychiatric: Denies: Confusion - Patient Data Vitals - Most Recent: Last Vital Signs Temp 98.2 F 03/03/20 10:47 Pulse 120 H 03/03/20 10:47 Resp 20 03/03/20 10:47 BP 106/48 L 03/03/20 10:47 Pulse Ox 94 L 03/03/20 10:47 Weight - Most Recent: 215 lb 9 oz I&O - Last 24 Hours: Intake & Output 03/02/20 03/03/20 03/03/20 22:59 06:59 14:59 Intake Total 320 189 Balance 320 189 Lab Results Last 24 Hours: Laboratory Results - last 24 hr 03/01/20 03/02/20 03/02/20 Range/Units 10:25 06:00 06:00 WBC (5.0-10.0) 10^3/uL RBC (4.2-5.4) 10^6/uL Hgb (12.0-16.0) g/dL Hct (37.0-47.0) % MCV (80-100) fL MCH (27.0-34.0) pg MCHC (33.0-35.0) g/dL Plt Count (150-450) 10^3/uL Neut % (Auto) (42.2-75.2) % Lymph % (Auto) (20.5-50.1) % [place] % (Auto) (2-8) % Eos % (Auto) (1.0-3.0) % Baso % (Auto) (0.0-1.0) % Sodium (136-145) mmol/L Potassium (3.5-5.1) mmol/L Chloride (98-107) mmol/L Carbon Dioxide (21-32) mmol/L Anion Gap (7-13) mEq/L BUN (7-18) mg/dL Creatinine (0.55-1.02) mg/dL Est Cr Clr Drug Dosing mL/min Estimated GFR (MDRD) Glucose (74-99) mg/dL Calcium (8.5-10.1) mg/dL Folate 11.3 (8.6-58.9) ng/mL COVID-19 PCR Not detected (NOT DETECT) Blood Type AB NEGATIVE Gel Antibody Screen Negative Crossmatch See Detail 03/03/20 03/03/20 Range/Units 06:00 06:00 WBC 13.0 H (5.0-10.0) 10^3/uL RBC 2.34 L (4.2-5.4) 10^6/uL Hgb 6.7 L* (12.0-16.0) g/dL Hct 23.9 L (37.0-47.0) % MCV 102.1 H (80-100) fL MCH 28.6 (27.0-34.0) pg MCHC 28.0 L (33.0-35.0) g/dL Plt Count 303 (150-450) 10^3/uL Neut % (Auto) 78.0 H (42.2-75.2) % Lymph % (Auto) 10.9 L (20.5-50.1) % [place] % (Auto) 10.7 H (2-8) % Eos % (Auto) 0.2 L (1.0-3.0) % Baso % (Auto) 0.2 (0.0-1.0) % Sodium 138 (136-145) mmol/L Potassium 4.1 (3.5-5.1) mmol/L Chloride 94 L (98-107) mmol/L Carbon Dioxide 45 H* (21-32) mmol/L Anion Gap 3.1 L (7-13) mEq/L BUN 39 H (7-18) mg/dL Creatinine 1.44 H (0.55-1.02) mg/dL Est Cr Clr Drug Dosing 24.22 mL/min Estimated GFR (MDRD) 35 Glucose 98 (74-99) mg/dL Calcium 8.3 L (8.5-10.1) mg/dL Folate (8.6-58.9) ng/mL COVID-19 PCR (NOT DETECT) Blood Type Gel Antibody Screen Crossmatch Raghavendra Results Last 24 Hours: Microbiology 02/29/20 14:40 Urine Culture - Final Urine, Voided Proteus Mirabilis 02/29/20 13:32 Aerobic Blood Culture - Preliminary Blood NO GROWTH AFTER 2 DAYS Anaerobic Blood Culture - Preliminary NO GROWTH AFTER 2 DAYS 03/02/20 12:00 Occult Blood - Final Stool / Feces - Stool, Formed Med Orders - Current: Current Medications Acetaminophen (Tylenol Extra Strength) 500 mg PO BID [facility] TO [facility] Last Admin: 03/03/20 09:24 Dose: 500 mg Acetaminophen (Tylenol) 650 mg PO Q4H PRN PRN Reason: Pain (Mild 1-3)/fever Hydrocodone Bitart/Acetaminophen ([place] 325-10 Mg) 1 tab PO Q4H PRN PRN Reason: Pain (moderate 4-6) Albuterol/Ipratropium (Duoneb 3.0-0.5 Mg/3 Ml) 3 ml NEB TIDRT [facility] Last Admin: 03/03/20 07:17 Dose: 3 ml Allopurinol (Zyloprim) 200 mg PO DAILY [facility] Last Admin: 03/03/20 09:22 Dose: 200 mg Atorvastatin Calcium (Lipitor) 20 mg PO BEDTIME [facility] Last Admin: 03/02/20 20:52 Dose: 20 mg Budesonide (Pulmicort) 0.5 mg NEB BIDRT [facility] Last Admin: 03/03/20 07:17 Dose: 0.5 mg Digoxin (Lanoxin) 125 mcg PO Q48H [facility] Last Admin: 03/02/20 16:16 Dose: 125 mcg Docusate Sodium (Colace) 100 mg PO BID [facility] Last Admin: 03/03/20 09:23 Dose: 100 mg Famotidine (Pepcid) 10 mg PO BID [facility] Last Admin: 03/03/20 09:21 Dose: 10 mg Ferrous Sulfate (Ferrous Sulfate) 325 mg PO BID [facility] Last Admin: 03/03/20 09:23 Dose: 325 mg Furosemide (Lasix) 40 mg IV Q8H [facility] Ciprofloxacin/Dextrose 400 mg/ (Premix) 200 mls @ 200 mls/hr IV Q24H [facility] Last Admin: 03/03/20 09:11 Dose: 200 mls/hr Levothyroxine Sodium (Levothyroxine) 112 mcg PO DAILY [facility] Last Admin: 03/03/20 09:23 Dose: 112 mcg Methyl Salicylate (Icy Hot Cream) 0 gm TOP QID PRN PRN Reason: Pain (mild 1-3) Last Admin: 03/03/20 09:21 Dose: 1 applic Metoprolol Tartrate (Lopressor) 25 mg PO BID [facility] Last Admin: 03/03/20 09:23 Dose: 25 mg Montelukast Sodium (Singulair) 10 mg PO BEDTIME [facility] Last Admin: 03/02/20 20:52 Dose: 10 mg Ondansetron HCl (Zofran Odt) 4 mg PO Q6H PRN PRN Reason: nausea, able to take PO Ondansetron HCl (Zofran) 4 mg IVPUSH Q6H PRN PRN Reason: Nausea/Vomiting Pantoprazole Sodium (Protonix) 40 mg PO BIDAC [facility] Last Admin: 03/03/20 05:36 Dose: 40 mg Polyethylene Glycol (Miralax) 17 gm PO DAILY [facility] Last Admin: 03/03/20 09:20 Dose: 17 gm Potassium Chloride (Klor-Con 10) 10 meq PO BEDTIME [facility] Last Admin: 03/02/20 20:52 Dose: 10 meq Sodium Chloride (Saline Flush) 10 ml FLUSH ASDIRECTED PRN PRN Reason: Keep Vein Open Last Admin: 03/03/20 09:14 Dose: 10 ml Sucralfate (Carafate) 1 gm PO TIDAC [facility] Last Admin: 03/03/20 05:36 Dose: 1 gm Temazepam (Restoril) 15 mg PO BEDTIME PRN PRN Reason: Sleep Discontinued Medications Budesonide (Pulmicort) 0.5 mg NEB BID [facility] Last Admin: 03/01/20 10:34 Dose: Not Given Furosemide (Lasix) 20 mg IV Q8H [facility] Last Admin: 03/03/20 09:21 Dose: 20 mg Ciprofloxacin/Dextrose 400 mg/ (Premix) 200 mls @ 200 mls/hr IV Q12HR [facility] Last Admin: 03/01/20 09:01 Dose: 200 mls/hr Prednisone (Prednisone) 40 mg PO WITHBREAKFAST [facility] Last Admin: 03/02/20 08:53 Dose: 40 mg Rivaroxaban (Xarelto) 15 mg PO WITHDINNER [facility] Last Admin: 03/01/20 17:56 Dose: 15 mg - Exam Quality Assessment: Supplemental Oxygen General: Alert, Oriented Neck: Supple Lungs: Rhonchi, Wheezing (b/l) Cardiovascular: Irregular Rhythm GI/Abdominal Exam: Normal Bowel Sounds, Soft, Non-Tender Extremities: Pedal Edema (2+ b/l) Skin: Warm Neurological: No New Focal Deficit Psy/Mental Status: Alert, Normal Affect, Normal Mood Sepsis Event Note - Evaluation Sepsis Screening Result: No Definite Risk - Focused Exam Vital Signs: Vital Signs Temp Temp Pulse Pulse Resp BP BP 03/03/20 10:47 98.2 F 120 H 20 03/03/20 10:33 98.4 F 99 20 03/03/20 10:18 98.2 F 100 22 H 118/48 L 03/03/20 09:56 98.6 F 102 H 20 111/48 L 03/03/20 09:23 107 H 122/51 L 03/03/20 08:00 98.6 F 107 H 20 122/51 L 03/03/20 07:17 106 H 03/03/20 04:00 105 H 20 03/02/20 23:51 20 BP Pulse Ox 03/03/20 10:47 106/48 L 94 L 03/03/20 10:33 105/41 L 95 03/03/20 10:18 93 L 03/03/20 09:56 91 L 03/03/20 09:23 03/03/20 08:00 96 03/03/20 07:17 03/03/20 04:00 85 L 03/02/20 23:51 94 L Date Exam was Performed: 03/03/20 Time Exam was Performed: 10:52 - Problem List & Annotations (1) Atrial fibrillation SNOMED Code(s): 38990026 Code(s): I48.91 - UNSPECIFIED ATRIAL FIBRILLATION Status: Acute Current Visit: No (2) CHF (congestive heart failure) SNOMED Code(s): 63645681 Code(s): I50.9 - HEART FAILURE, UNSPECIFIED Status: Acute Current Visit: No (3) Urinary tract infection SNOMED Code(s): 49848388 Code(s): N39.0 - URINARY TRACT INFECTION, SITE NOT SPECIFIED Status: Acute Current Visit: No Qualifiers: Urinary tract infection type: acute cystitis Hematuria presence: with hematuria Qualified Code(s): N30.01 - Acute cystitis with hematuria (4) HTN (hypertension) SNOMED Code(s): 88761672 Code(s): I10 - ESSENTIAL (PRIMARY) HYPERTENSION Status: Chronic Priority : Medium Current Visit: No Qualifiers: Hypertension type: essential hypertension Qualified Code(s): I10 - Essential (primary) hypertension - Problem List Review Problem List Initiated/Reviewed/Updated: Yes - My Orders Last 24 Hours: My Active Orders 03/02/20 10:09 Transfuse RBC [Transfuse Red Blood Cells] [COMM] Routine 03/02/20 10:45 Famotidine [Pepcid] 10 mg PO BID 03/02/20 11:00 Sucralfate [Carafate] 1 gm PO TIDAC 03/03/20 16:30 Furosemide [Lasix] 40 mg IV Q8H - Plan Plan:: Shortness of breath This is multifactorial, likely a CHF component, COPD component. Chronic hypoxemic respiratory failure Continue oxygen supplement as needed The patient has been on 2 L nasal cannula oxygen at home prior to admission Acute COPD exacerbation Has wheezing, shortness of breath continue to give DuoNeb scheduled and as needed off prednisone - with concern of GI bleed Continue Singulair Acute diastolic congestive heart failure Obtain echo for further characterization - when available We'll continue metoprolol increase IV Lasix Follow weight anemia h/o iron def anemia worsening occult blood: negative now hgb stable stopped prednisone, xarelto cont protonix BID, sucralfate, pepcid discussed the usual practice of GI evaluation, egd, possible malignancy - pt would like to hold off on procedures, medical management for now Urinary tract infection UA: proteus mirabilis - sens to cipro Started the patient on ciprofloxacin Atrial fibrillation Rate control with metoprolol, digoxin hold Anticoagulation with xarelto re: gi bleed DVT prophylaxis will be with SCDs
[2020-03-03] MEDS: Furosemide 40 MG/4 ML VIAL IV SCH (15:58)
[2020-03-03] MEDS: atorvaSTATin 20 MG Tab PO SCH (22:05)
[2020-03-03] MEDS: Potassium Chloride 10 MEQ Tab.ER PO SCH (22:08)
[2020-03-03] MEDS: Montelukast 10 MG Tab PO SCH (22:08)
[2020-03-04] MEDS: Furosemide 40 MG/4 ML VIAL IV SCH ×3 (00:05→17:25)
[2020-03-04] MEDS: Sodium Chloride 0.9% 10 ML Syringe FLUSH PRN ×4 (00:05→21:22)
[2020-03-04] MEDS: Sucralfate 1 GM Tab PO SCH ×3 (06:35→17:24)
[2020-03-04] MEDS: Pantoprazole 40 MG Tab.CR PO SCH ×2 (06:36→17:24)
[2020-03-04] MEDS: Albuterol/Ipratropium 3.0-0.5 MG/3 ML Neb Soln NEB SCH ×3 (07:12→21:04)
[2020-03-04] MEDS: Budesonide 0.5 MG/2 ML Neb Susp NEB SCH ×2 (07:12→17:26)
[2020-03-04 07:16] LABS: ANION GAP 7.6 mEq/L (7-13)
[2020-03-04] MEDS: Ciprofloxacin in D5W 400 MG in Premix Bag 1 BAG IV SCH ×2 (09:06)
[2020-03-04] MEDS: Ferrous Sulfate 325 MG Tab PO SCH ×2 (09:06→20:54)
[2020-03-04] MEDS: Docusate Sodium 100 MG Cap PO SCH ×2 (09:06→20:54)
[2020-03-04] MEDS: Levothyroxine 112 MCG Tab PO SCH (09:07)
[2020-03-04] MEDS: Metoprolol Tartrate 25 MG Tab PO SCH ×2 (09:07→20:54)
[2020-03-04] MEDS: Polyethylene Glycol 3350 Powder 17 GM Packet PO SCH (09:08)
[2020-03-04] MEDS: Famotidine 20 MG Tab PO SCH ×2 (09:08→20:58)
[2020-03-04] MEDS: Acetaminophen 500 MG Tab PO SCH ×2 (09:09→20:55)
[2020-03-04] MEDS: Allopurinol 100 MG Tab PO SCH (09:10)
[2020-03-04 13:36] LABS: O2 DELIVERY DEVICE NASAL CANNULA
[2020-03-04 13:37] LABS: O2 SATURATION ARTERIAL 89 % (95-100); PCO2 ARTERIAL 76 mmHg (35-45); PO2 ARTERIAL 52 mmHg (70-100)
[2020-03-04 13:38] LABS: ALLEN TEST pos; BASE EXCESS ARTERIAL 22 mmol/L ((-2)-(+3)); BICARBONATE,ARTERIAL 48.9 mmol/L (22-26); O2 FLOW RATE 2
--- NOTE | 2020-03-04 13:46 | PCM.PN ---
- General Info Date of Service: 03/04/20 Admission Dx/Problem (Free Text): Admission Diagnosis/Problem Admission Diagnosis/Problem CHF, Congestive heart failure Subjective Update: Lower extremity swelling is decreased more confused today, some tremor No shortness of breath with oxygen and at rest No fever or chills. Functional Status: Reports: Tolerating Diet - Review of Systems General: Reports: Weakness. Denies: Fever Cardiovascular: Reports: Edema (improved). Denies: Chest Pain Genitourinary: Denies: Dysuria Neurological: Reports: Confusion, Tremors, Weakness - Patient Data Vitals - Most Recent: Last Vital Signs Temp 97.9 F 03/04/20 12:00 Pulse 93 03/04/20 12:00 Resp 20 03/04/20 12:00 BP 104/40 L 03/04/20 12:00 Pulse Ox 100 03/04/20 12:00 Weight - Most Recent: 214 lb 3.2 oz I&O - Last 24 Hours: Intake & Output 03/03/20 03/04/20 03/04/20 22:59 06:59 14:59 Intake Total 350 300 240 Balance 350 300 240 Lab Results Last 24 Hours: Laboratory Results - last 24 hr 03/02/20 03/04/20 03/04/20 Range/Units 06:00 06:00 06:00 WBC 13.9 H (5.0-10.0) 10^3/uL RBC 2.88 L (4.2-5.4) 10^6/uL Hgb 8.2 L D (12.0-16.0) g/dL Hct 27.9 L (37.0-47.0) % MCV 96.9 D (80-100) fL MCH 28.5 (27.0-34.0) pg MCHC 29.4 L (33.0-35.0) g/dL Plt Count 271 (150-450) 10^3/uL Neut % (Auto) 75.6 H (42.2-75.2) % Lymph % (Auto) 10.9 L (20.5-50.1) % [place] % (Auto) 12.2 H (2-8) % Eos % (Auto) 0.9 L (1.0-3.0) % Baso % (Auto) 0.4 (0.0-1.0) % Sodium 143 (136-145) mmol/L Potassium 3.6 (3.5-5.1) mmol/L Chloride 96 L (98-107) mmol/L Carbon Dioxide 43 H* (21-32) mmol/L Anion Gap 7.6 (7-13) mEq/L BUN 38 H (7-18) mg/dL Creatinine 1.58 H (0.55-1.02) mg/dL Est Cr Clr Drug Dosing 22.07 mL/min Estimated GFR (MDRD) 31 Glucose 105 H (74-99) mg/dL Calcium 7.6 L (8.5-10.1) mg/dL Blood Type AB NEGATIVE Gel Antibody Screen Negative Crossmatch See Detail Raghavendra Results Last 24 Hours: Microbiology 02/29/20 13:32 Aerobic Blood Culture - Preliminary Blood NO GROWTH AFTER 4 DAYS Anaerobic Blood Culture - Preliminary NO GROWTH AFTER 4 DAYS Med Orders - Current: Current Medications Acetaminophen (Tylenol Extra Strength) 500 mg PO BID [facility] Last Admin: 03/04/20 09:09 Dose: 500 mg Acetaminophen (Tylenol) 650 mg PO Q4H PRN PRN Reason: Pain (Mild 1-3)/fever Albuterol/Ipratropium (Duoneb 3.0-0.5 Mg/3 Ml) 3 ml NEB TIDRT [facility] Last Admin: 03/04/20 07:12 Dose: 3 ml Allopurinol (Zyloprim) 200 mg PO DAILY [facility] Last Admin: 03/04/20 09:10 Dose: 200 mg Atorvastatin Calcium (Lipitor) 20 mg PO BEDTIME [facility] Last Admin: 03/03/20 22:05 Dose: 20 mg Budesonide (Pulmicort) 0.5 mg NEB BIDRT [facility] Last Admin: 03/04/20 07:12 Dose: 0.5 mg Digoxin (Lanoxin) 125 mcg PO Q48H [facility] Last Admin: 03/02/20 16:16 Dose: 125 mcg Docusate Sodium (Colace) 100 mg PO BID [facility] Last Admin: 03/04/20 09:06 Dose: 100 mg Famotidine (Pepcid) 10 mg PO BID [facility] Last Admin: 03/04/20 09:08 Dose: 10 mg Ferrous Sulfate (Ferrous Sulfate) 325 mg PO BID [facility] Last Admin: 03/04/20 09:06 Dose: 325 mg Furosemide (Lasix) 40 mg IV Q8H [facility] Last Admin: 03/04/20 09:05 Dose: 40 mg Ciprofloxacin/Dextrose 400 mg/ (Premix) 200 mls @ 200 mls/hr IV Q24H [facility] Last Admin: 03/04/20 09:06 Dose: 200 mls/hr Levothyroxine Sodium (Levothyroxine) 112 mcg PO DAILY [facility] Last Admin: 03/04/20 09:07 Dose: 112 mcg Methyl Salicylate (Icy Hot Cream) 0 gm TOP QID PRN PRN Reason: Pain (mild 1-3) Last Admin: 03/03/20 22:03 Dose: 1 applic Metoprolol Tartrate (Lopressor) 25 mg PO BID [facility] Last Admin: 03/04/20 09:07 Dose: 25 mg Montelukast Sodium (Singulair) 10 mg PO BEDTIME [facility] Last Admin: 03/03/20 22:08 Dose: 10 mg Ondansetron HCl (Zofran Odt) 4 mg PO Q6H PRN PRN Reason: nausea, able to take PO Ondansetron HCl (Zofran) 4 mg IVPUSH Q6H PRN PRN Reason: Nausea/Vomiting Pantoprazole Sodium (Protonix) 40 mg PO BIDAC [facility] Last Admin: 03/04/20 06:36 Dose: 40 mg Polyethylene Glycol (Miralax) 17 gm PO DAILY [facility] Last Admin: 03/04/20 09:08 Dose: 17 gm Potassium Chloride (Klor-Con 10) 10 meq PO BEDTIME [facility] Last Admin: 03/03/20 22:08 Dose: 10 meq Sodium Chloride (Saline Flush) 10 ml FLUSH ASDIRECTED PRN PRN Reason: Keep Vein Open Last Admin: 03/04/20 00:12 Dose: 10 ml Sucralfate (Carafate) 1 gm PO TIDAC [facility] Last Admin: 03/04/20 12:43 Dose: 1 gm Discontinued Medications Hydrocodone Bitart/Acetaminophen ([place] 325-10 Mg) 1 tab PO Q4H PRN PRN Reason: Pain (moderate 4-6) Budesonide (Pulmicort) 0.5 mg NEB BID [facility] Last Admin: 03/01/20 10:34 Dose: Not Given Furosemide (Lasix) 20 mg IV Q8H [facility] Last Admin: 03/03/20 09:21 Dose: 20 mg Ciprofloxacin/Dextrose 400 mg/ (Premix) 200 mls @ 200 mls/hr IV Q12HR [facility] Last Admin: 03/01/20 09:01 Dose: 200 mls/hr Prednisone (Prednisone) 40 mg PO WITHBREAKFAST [facility] Last Admin: 03/02/20 08:53 Dose: 40 mg Rivaroxaban (Xarelto) 15 mg PO WITHDINNER [facility] Last Admin: 03/01/20 17:56 Dose: 15 mg Temazepam (Restoril) 15 mg PO BEDTIME PRN PRN Reason: Sleep - Exam Quality Assessment: Supplemental Oxygen General: Alert. No: Oriented Neck: Supple Lungs: Normal Respiratory Effort, Decreased Breath Sounds. No: Wheezing Cardiovascular: Irregular Rhythm GI/Abdominal Exam: Normal Bowel Sounds, Soft, Non-Tender Extremities: Pedal Edema (trace) Skin: Warm Neurological: No New Focal Deficit Psy/Mental Status: Alert. No: Agitated, Hallucinations Sepsis Event Note - Evaluation Sepsis Screening Result: No Definite Risk - Focused Exam Vital Signs: Vital Signs Temp Pulse Pulse Resp BP BP BP 03/04/20 12:00 97.9 F 93 20 104/40 L 03/04/20 09:07 95 114/50 L 03/04/20 08:00 97.8 F 95 19 114/50 L 03/04/20 07:12 98 Pulse Ox 03/04/20 12:00 100 03/04/20 09:07 03/04/20 08:00 98 03/04/20 07:12 Date Exam was Performed: 03/04/20 Time Exam was Performed: 13:38 - Problem List & Annotations (1) Atrial fibrillation SNOMED Code(s): 54049802 Code(s): I48.91 - UNSPECIFIED ATRIAL FIBRILLATION Status: Acute Current Visit: No (2) CHF (congestive heart failure) SNOMED Code(s): 18220502 Code(s): I50.9 - HEART FAILURE, UNSPECIFIED Status: Acute Current Visit: No (3) Urinary tract infection SNOMED Code(s): 05730372 Code(s): N39.0 - URINARY TRACT INFECTION, SITE NOT SPECIFIED Status: Acute Current Visit: No Qualifiers: Urinary tract infection type: acute cystitis Hematuria presence: with hematuria Qualified Code(s): N30.01 - Acute cystitis with hematuria (4) HTN (hypertension) SNOMED Code(s): 94194238 Code(s): I10 - ESSENTIAL (PRIMARY) HYPERTENSION Status: Chronic Priority : Medium Current Visit: No Qualifiers: Hypertension type: essential hypertension Qualified Code(s): I10 - Essential (primary) hypertension - Problem List Review Problem List Initiated/Reviewed/Updated: Yes - My Orders Last 24 Hours: My Active Orders 03/03/20 16:30 Furosemide [Lasix] 40 mg IV Q8H 03/04/20 13:30 ABG [BLOOD GAS ARTERIAL] [BG] Routine - Plan Plan:: Shortness of breath This is multifactorial, likely a CHF component, COPD component. Chronic hypoxemic respiratory failure Continue oxygen supplement as needed The patient has been on 2 L nasal cannula oxygen at home prior to admission Acute COPD exacerbation Has wheezing, shortness of breath continue to give DuoNeb scheduled and as needed off prednisone - with concern of GI bleed Continue Singulair will get ABG to eval for co2 retention acute encephalopahty eval with abg stop pain meds, sleeping meds (was not taking them) Acute diastolic congestive heart failure Obtain echo for further characterization - when available We'll continue metoprolol cont IV Lasix Follow weight anemia h/o iron def anemia received 2 u prbc tx on 03/03 occult blood: negative monitor hgb for possible GI bleed stopped prednisone, xarelto cont protonix BID, sucralfate, pepcid discussed the usual practice of GI evaluation, egd, possible malignancy - pt would like to hold off on procedures, medical management for now Urinary tract infection UA: proteus mirabilis - sens to cipro Started the patient on ciprofloxacin Atrial fibrillation Rate control with metoprolol, digoxin hold Anticoagulation with xarelto re: possible gi bleed DVT prophylaxis will be with SCDs
[2020-03-04] MEDS ORDERED: Levofloxacin/Dextrose 5%-Water 750 MG in Premix Bag 1 BAG IV SCH (16:00)
[2020-03-04] MEDS: Digoxin 125 MCG Tab PO SCH (17:24)
[2020-03-04] MEDS: Levofloxacin/Dextrose 5%-Water 750 MG in Premix Bag 1 BAG IV SCH (17:25)
[2020-03-04] MEDS: Montelukast 10 MG Tab PO SCH (20:53)
[2020-03-04] MEDS: Potassium Chloride 10 MEQ Tab.ER PO SCH (20:54)
[2020-03-04] MEDS: atorvaSTATin 20 MG Tab PO SCH (20:54)
[2020-03-04] MEDS: Menthol/Methyl Salicylate 85 GM Tube TOP PRN (21:16)
[2020-03-05] MEDS: Sucralfate 1 GM Tab PO SCH ×3 (06:07→15:39)
[2020-03-05] MEDS: Pantoprazole 40 MG Tab.CR PO SCH ×2 (06:07→15:40)
[2020-03-05] MEDS: Budesonide 0.5 MG/2 ML Neb Susp NEB SCH ×2 (07:37→18:32)
[2020-03-05] MEDS: Albuterol/Ipratropium 3.0-0.5 MG/3 ML Neb Soln NEB SCH ×3 (07:37→23:15)
[2020-03-05] MEDS: Ferrous Sulfate 325 MG Tab PO SCH ×2 (08:11→23:15)
[2020-03-05] MEDS: Docusate Sodium 100 MG Cap PO SCH ×2 (08:11→23:14)
[2020-03-05] MEDS: Levothyroxine 112 MCG Tab PO SCH (08:11)
[2020-03-05] MEDS: Polyethylene Glycol 3350 Powder 17 GM Packet PO SCH (08:12)
[2020-03-05] MEDS: Famotidine 20 MG Tab PO SCH ×2 (08:12→23:16)
[2020-03-05] MEDS: Acetaminophen 500 MG Tab PO SCH ×2 (08:13→23:18)
[2020-03-05] MEDS: Metoprolol Tartrate 25 MG Tab PO SCH ×2 (08:14→23:16)
[2020-03-05] MEDS: Allopurinol 100 MG Tab PO SCH (08:14)
[2020-03-05] MEDS: Furosemide 40 MG/4 ML VIAL IV SCH ×3 (08:15→18:32)
[2020-03-05 10:42] LABS: ANION GAP 5.8 mEq/L (7-13)
--- NOTE | 2020-03-05 10:55 | PCM.PN ---
- General Info Date of Service: 03/05/20 Subjective Update: Lower extremity swelling is decreased but still present The significant confusion that was present yesterday has resolved No shortness of breath with oxygen and at rest No fever or chills. Functional Status: Reports: Pain Controlled, Tolerating Diet. Denies: Ambulating - Review of Systems General: Denies: Fever Pulmonary: Denies: Shortness of Breath Cardiovascular: Reports: Edema. Denies: Chest Pain Gastrointestinal: Denies: Abdominal Pain Neurological: Denies: Confusion - Patient Data Vitals - Most Recent: Last Vital Signs Temp 98.3 F 03/05/20 08:27 Pulse 93 03/05/20 08:27 Resp 20 03/05/20 08:27 BP 138/61 03/05/20 08:27 Pulse Ox 97 03/05/20 08:27 Weight - Most Recent: 209 lb 8 oz I&O - Last 24 Hours: Intake & Output 03/04/20 03/05/20 03/05/20 22:59 06:59 14:59 Intake Total 120 500 Output Total 300 300 Balance -180 200 Lab Results Last 24 Hours: Laboratory Results - last 24 hr 03/04/20 03/04/20 03/05/20 Range/Units 13:30 19:18 10:06 WBC 17.3 H (5.0-10.0) 10^3/uL RBC 3.08 L (4.2-5.4) 10^6/uL Hgb 8.8 L (12.0-16.0) g/dL Hct 30.3 L (37.0-47.0) % MCV 98.4 (80-100) fL MCH 28.6 (27.0-34.0) pg MCHC 29.0 L (33.0-35.0) g/dL Plt Count 281 (150-450) 10^3/uL Neut % (Auto) 84.5 H (42.2-75.2) % Lymph % (Auto) 4.8 L (20.5-50.1) % [place] % (Auto) 9.0 H (2-8) % Eos % (Auto) 1.4 (1.0-3.0) % Baso % (Auto) 0.3 (0.0-1.0) % ABG pH 7.42 (7.35-7.45) ABG pCO2 76 H* (35-45) mmHg ABG pO2 52 L (70-100) mmHg ABG HCO3 48.9 H (22-26) mmol/L ABG O2 Saturation 89 L (95-100) % ABG Base Excess 22 H ((-2)-(+3)) mmol/L Toby Test pos O2 Delivery Device Nasal cannula Oxygen Flow Rate 2 Sodium (136-145) mmol/L Potassium (3.5-5.1) mmol/L Chloride (98-107) mmol/L Carbon Dioxide (21-32) mmol/L Anion Gap (7-13) mEq/L BUN (7-18) mg/dL Creatinine (0.55-1.02) mg/dL Est Cr Clr Drug Dosing mL/min Estimated GFR (MDRD) Glucose (74-99) mg/dL Calcium (8.5-10.1) mg/dL Urine Color Yellow (YELLOW) Urine Appearance Slightly cloudy (CLEAR) Urine pH 8.0 (5.0-9.0) Ur Specific [place] 1.015 (1.005-1.030) Urine Protein Negative (NEGATIVE) Urine Glucose (UA) Negative (NEGATIVE) Urine Ketones Negative (NEGATIVE) Urine Occult Blood Negative (NEGATIVE) Urine Nitrite Negative (NEGATIVE) Urine Bilirubin Negative (NEGATIVE) Urine Urobilinogen 0.2 (0.2-1.0) mg/dL Ur Leukocyte Esterase Small H (NEGATIVE) Urine RBC Not seen /HPF Urine WBC 5-10 H (0-5/HPF) /HPF Ur Epithelial Cells Few (NOT SEEN) /HPF Urine Bacteria Many H (0-FEW/HPF) /HPF /20/20 Range/Units 10:06 WBC (5.0-10.0) 10^3/uL RBC (4.2-5.4) 10^6/uL Hgb (12.0-16.0) g/dL Hct (37.0-47.0) % MCV (80-100) fL MCH (27.0-34.0) pg MCHC (33.0-35.0) g/dL Plt Count (150-450) 10^3/uL Neut % (Auto) (42.2-75.2) % Lymph % (Auto) (20.5-50.1) % [place] % (Auto) (2-8) % Eos % (Auto) (1.0-3.0) % Baso % (Auto) (0.0-1.0) % ABG pH (7.35-7.45) ABG pCO2 (35-45) mmHg ABG pO2 (70-100) mmHg ABG HCO3 (22-26) mmol/L ABG O2 Saturation (95-100) % ABG Base Excess ((-2)-(+3)) mmol/L Toby Test O2 Delivery Device Oxygen Flow Rate Sodium 141 (136-145) mmol/L Potassium 3.8 (3.5-5.1) mmol/L Chloride 96 L (98-107) mmol/L Carbon Dioxide 43 H* (21-32) mmol/L Anion Gap 5.8 L (7-13) mEq/L BUN 28 H (7-18) mg/dL Creatinine 1.60 H (0.55-1.02) mg/dL Est Cr Clr Drug Dosing 21.79 mL/min Estimated GFR (MDRD) 31 Glucose 134 H (74-99) mg/dL Calcium 8.1 L (8.5-10.1) mg/dL Urine Color (YELLOW) Urine Appearance (CLEAR) Urine pH (5.0-9.0) Ur Specific [place] (1.005-1.030) Urine Protein (NEGATIVE) Urine Glucose (UA) (NEGATIVE) Urine Ketones (NEGATIVE) Urine Occult Blood (NEGATIVE) Urine Nitrite (NEGATIVE) Urine Bilirubin (NEGATIVE) Urine Urobilinogen (0.2-1.0) mg/dL Ur Leukocyte Esterase (NEGATIVE) Urine RBC /HPF Urine WBC (0-5/HPF) /HPF Ur Epithelial Cells (NOT SEEN) /HPF Urine Bacteria (0-FEW/HPF) /HPF Raghavendra Results Last 24 Hours: Microbiology 02/29/20 13:32 Aerobic Blood Culture - Preliminary Blood NO GROWTH AFTER 4 DAYS Anaerobic Blood Culture - Preliminary NO GROWTH AFTER 4 DAYS Med Orders - Current: Current Medications Acetaminophen (Tylenol Extra Strength) 500 mg PO BID [facility] Last Admin: 03/05/20 08:13 Dose: 500 mg Acetaminophen (Tylenol) 650 mg PO Q4H PRN PRN Reason: Pain (Mild 1-3)/fever Albuterol/Ipratropium (Duoneb 3.0-0.5 Mg/3 Ml) 3 ml NEB TIDRT [facility] Last Admin: 03/05/20 07:37 Dose: 3 ml Allopurinol (Zyloprim) 200 mg PO DAILY [facility] Last Admin: 03/05/20 08:14 Dose: 200 mg Atorvastatin Calcium (Lipitor) 20 mg PO BEDTIME [facility] Last Admin: 03/04/20 20:54 Dose: 20 mg Budesonide (Pulmicort) 0.5 mg NEB BIDRT [facility] Last Admin: 03/05/20 07:37 Dose: 0.5 mg Digoxin (Lanoxin) 125 mcg PO Q48H [facility] Last Admin: 03/04/20 17:24 Dose: 125 mcg Docusate Sodium (Colace) 100 mg PO BID [facility] Last Admin: 03/05/20 08:11 Dose: 100 mg Famotidine (Pepcid) 10 mg PO BID [facility] Last Admin: 03/05/20 08:12 Dose: 10 mg Ferrous Sulfate (Ferrous Sulfate) 325 mg PO BID [facility] Last Admin: 03/05/20 08:11 Dose: 325 mg Furosemide (Lasix) 40 mg IV TID@0900,1400,1800 [facility] Last Admin: 03/05/20 08:15 Dose: 40 mg Levofloxacin/Dextrose 750 mg/ (Premix) 150 mls @ 100 mls/hr IV Q48H [facility] Last Admin: 03/04/20 17:25 Dose: 100 mls/hr Levothyroxine Sodium (Levothyroxine) 112 mcg PO DAILY [facility] Last Admin: 03/05/20 08:11 Dose: 112 mcg Methyl Salicylate (Icy Hot Cream) 0 gm TOP QID PRN PRN Reason: Pain (mild 1-3) Last Admin: 03/04/20 21:16 Dose: 1 applic Metoprolol Tartrate (Lopressor) 25 mg PO BID [facility] Last Admin: 03/05/20 08:14 Dose: 25 mg Montelukast Sodium (Singulair) 10 mg PO BEDTIME [facility] Last Admin: 03/04/20 20:53 Dose: 10 mg Ondansetron HCl (Zofran Odt) 4 mg PO Q6H PRN PRN Reason: nausea, able to take PO Ondansetron HCl (Zofran) 4 mg IVPUSH Q6H PRN PRN Reason: Nausea/Vomiting [facility]: 03/05/20 06:07 Dose: 40 mg Polyethylene Glycol (Miralax) 17 gm PO DAILY [facility] Last Admin: 03/05/20 08:12 Dose: 17 gm Potassium Chloride (Klor-Con 10) 10 meq PO BEDTIME [facility] Last Admin: 03/04/20 20:54 Dose: 10 meq Sodium Chloride (Saline Flush) 10 ml FLUSH ASDIRECTED PRN PRN Reason: Keep Vein Open Last Admin: 03/04/20 21:22 Dose: 10 ml Sucralfate (Carafate) 1 gm PO TIDAC [facility] Last Admin: 03/05/20 06:07 Dose: 1 gm Discontinued Medications Hydrocodone Bitart/Acetaminophen ([place] 325-10 Mg) 1 tab PO Q4H PRN PRN Reason: Pain (moderate 4-6) Budesonide (Pulmicort) 0.5 mg NEB BID [facility] Last Admin: 03/01/20 10:34 Dose: Not Given Furosemide (Lasix) 20 mg IV Q8H [facility] Last Admin: 03/03/20 09:21 Dose: 20 mg Furosemide (Lasix) 40 mg IV Q8H [facility] Last Admin: 03/04/20 17:25 Dose: 40 mg Ciprofloxacin/Dextrose 400 mg/ (Premix) 200 mls @ 200 mls/hr IV Q12HR [facility] Last Admin: 03/01/20 09:01 Dose: 200 mls/hr Ciprofloxacin/Dextrose 400 mg/ (Premix) 200 mls @ 200 mls/hr IV Q24H [facility] Last Admin: 03/04/20 09:06 Dose: 200 mls/hr Levofloxacin/Dextrose 750 mg/ (Premix) 150 mls @ 100 mls/hr IV Q24H [facility] Last Admin: 03/04/20 17:56 Dose: Not Given Prednisone (Prednisone) 40 mg PO WITHBREAKFAST [facility] Last Admin: 03/02/20 08:53 Dose: 40 mg Rivaroxaban (Xarelto) 15 mg PO WITHDINNER [facility] Last Admin: 03/01/20 17:56 Dose: 15 mg Temazepam (Restoril) 15 mg PO BEDTIME PRN PRN Reason: Sleep - Exam General: Alert, Oriented Neck: Supple Lungs: Normal Respiratory Effort, Decreased Breath Sounds, Wheezing (Mild bilateral) Cardiovascular: Regular Rate, Regular Rhythm GI/Abdominal Exam: Normal Bowel Sounds, Soft, Non-Tender Extremities: Pedal Edema (1-2+) Sepsis Event Note - Evaluation Sepsis Screening Result: No Definite Risk - Focused Exam Vital Signs: Vital Signs Temp Pulse Pulse Resp BP BP Pulse Ox 03/05/20 08:27 98.3 F 93 20 138/61 97 03/05/20 08:14 102 H 138/61 03/05/20 07:37 97 03/04/20 23:40 98.3 F 91 18 110/41 L 94 L Pulse Ox 03/05/20 08:27 03/05/20 08:14 03/05/20 07:37 90 L 03/04/20 23:40 Date Exam was Performed: 03/05/20 Time Exam was Performed: 11:03 - Problem List & Annotations (1) Atrial fibrillation SNOMED Code(s): 48409544 Code(s): I48.91 - UNSPECIFIED ATRIAL FIBRILLATION Status: Acute Current Visit: No (2) CHF (congestive heart failure) SNOMED Code(s): 60426091 Code(s): I50.9 - HEART FAILURE, UNSPECIFIED Status: Acute Current Visit: No (3) Urinary tract infection SNOMED Code(s): 22615205 Code(s): N39.0 - URINARY TRACT INFECTION, SITE NOT SPECIFIED Status: Acute Current Visit: No Qualifiers: Urinary tract infection type: acute cystitis Hematuria presence: with hematuria Qualified Code(s): N30.01 - Acute cystitis with hematuria (4) HTN (hypertension) SNOMED Code(s): 62529127 Code(s): I10 - ESSENTIAL (PRIMARY) HYPERTENSION Status: Chronic Priority : Medium Current Visit: No Qualifiers: Hypertension type: essential hypertension Qualified Code(s): I10 - Essential (primary) hypertension - Problem List Review Problem List Initiated/Reviewed/Updated: Yes - My Orders Last 24 Hours: My Active Orders 03/04/20 14:06 Blood Culture x2 Reflex Set [OM.PC] Stat 03/04/20 15:58 CULTURE BLOOD [BC] Stat 03/04/20 16:05 CULTURE BLOOD [BC] Stat 03/04/20 17:00 Levofloxacin/Dextrose 5%-Water [Levaquin in D5W 750 MG/150 ML] 750 mg Premix Bag 1 bag IV Q48H 03/04/20 19:18 CULTURE URINE [RM] Routine 03/05/20 09:00 Furosemide [Lasix] 40 mg IV TID@0900,1400,1800 03/05/20 10:48 Incentive Spirometry [RT Incentive Spirometry] [RC] Q2HWA - Plan Plan:: Shortness of breath This is multifactorial, likely a CHF component, COPD component. Chronic hypoxemic, hypercapnic respiratory failure Continue oxygen supplement as needed CO2 in the 70s but pH is compensated The patient has been on 2 L nasal cannula oxygen prior to admission Acute COPD exacerbation Has wheezing, shortness of breath continue to give DuoNeb scheduled and as needed off prednisone - with concern of GI bleed Continue Singulair acute encephalopahty Resolved Acute diastolic congestive heart failure Obtain echo for further characterization - when available We'll continue metoprolol cont IV Lasix Follow weight Use compression stocking anemia h/o iron def anemia received 2 u prbc tx on 03/03 occult blood: negative monitor hgb for possible GI bleed Given iron deficiency anemia Nevertheless occult blood from stool was negative stopped prednisone, xarelto cont protonix BID, sucralfate, pepcid Since hemoglobin is stable now I will resume Xarelto Increasing leukocytosis Urine culture will be repeated Chest x-ray was concerning for possible pneumonia Change ciprofloxacin to levofloxacin for broader spectrum coverage Encourage using incentive spirometry Urinary tract infection UA: proteus mirabilis - sens to cipro Started the patient on ciprofloxacin - switch to levofloxacin Atrial fibrillation Rate control with metoprolol, digoxin resume Xarelto DVT prophylaxis will be with Xarelto
[2020-03-05] MEDS: Rivaroxaban 10 MG Tab PO SCH (18:33)
[2020-03-05] MEDS: atorvaSTATin 20 MG Tab PO SCH (23:15)
[2020-03-05] MEDS: Potassium Chloride 10 MEQ Tab.ER PO SCH (23:15)
[2020-03-05] MEDS: Montelukast 10 MG Tab PO SCH (23:17)
[2020-03-06] MEDS: Pantoprazole 40 MG Tab.CR PO SCH ×2 (06:49→16:08)
[2020-03-06] MEDS: Sucralfate 1 GM Tab PO SCH ×3 (06:49→16:08)
[2020-03-06 06:52] LABS: ANION GAP 5.4 mEq/L (7-13)
[2020-03-06] MEDS: Budesonide 0.5 MG/2 ML Neb Susp NEB SCH ×2 (07:27→21:22)
[2020-03-06] MEDS: Albuterol/Ipratropium 3.0-0.5 MG/3 ML Neb Soln NEB SCH ×3 (07:27→21:22)
[2020-03-06] MEDS: Metoprolol Tartrate 25 MG Tab PO SCH ×2 (09:38→21:19)
[2020-03-06] MEDS: Ferrous Sulfate 325 MG Tab PO SCH ×2 (09:38→21:20)
[2020-03-06] MEDS: Famotidine 20 MG Tab PO SCH ×2 (09:38→21:24)
[2020-03-06] MEDS: Docusate Sodium 100 MG Cap PO SCH ×2 (09:38→21:22)
[2020-03-06] MEDS: Allopurinol 100 MG Tab PO SCH (09:39)
[2020-03-06] MEDS: Acetaminophen 500 MG Tab PO SCH ×2 (09:39→21:23)
[2020-03-06] MEDS: Polyethylene Glycol 3350 Powder 17 GM Packet PO SCH (09:40)
[2020-03-06] MEDS: Sodium Chloride 0.9% 10 ML Syringe FLUSH PRN ×5 (09:41→17:32)
[2020-03-06] MEDS: Furosemide 40 MG/4 ML VIAL IV SCH ×2 (09:41→14:18)
--- NOTE | 2020-03-06 09:49 | PCM.PN ---
- General Info Date of Service: 03/06/20 Admission Dx/Problem (Free Text): Admission Diagnosis/Problem Admission Diagnosis/Problem CHF, Congestive heart failure Subjective Update: Lower extremity swelling is much better no confusion No shortness of breath with oxygen and at rest No fever or chills. Functional Status: Reports: Tolerating Diet. Denies: Ambulating - Review of Systems General: Reports: Weakness Pulmonary: Denies: Shortness of Breath Cardiovascular: Denies: Chest Pain Gastrointestinal: Denies: Abdominal Pain Psychiatric: Denies: Confusion - Patient Data Vitals - Most Recent: Last Vital Signs Temp 97.6 F 03/06/20 08:06 Pulse 77 03/06/20 09:38 Resp 20 03/06/20 08:06 BP 100/47 L 03/06/20 09:38 Pulse Ox 95 03/06/20 08:06 Weight - Most Recent: 206 lb 4 oz I&O - Last 24 Hours: Intake & Output 03/05/20 03/06/20 03/06/20 22:59 06:59 14:59 Intake Total 360 275 Balance 360 275 Lab Results Last 24 Hours: Laboratory Results - last 24 hr 03/05/20 03/05/20 03/06/20 Range/Units 10:06 10:06 06:15 WBC 17.3 H 12.7 H (5.0-10.0) 10^3/uL RBC 3.08 L 2.94 L (4.2-5.4) 10^6/uL Hgb 8.8 L 8.3 L (12.0-16.0) g/dL Hct 30.3 L 28.9 L (37.0-47.0) % MCV 98.4 98.3 (80-100) fL MCH 28.6 28.2 (27.0-34.0) pg MCHC 29.0 L 28.7 L (33.0-35.0) g/dL Plt Count 281 266 (150-450) 10^3/uL Neut % (Auto) 84.5 H 82.2 H (42.2-75.2) % Lymph % (Auto) 4.8 L 6.9 L (20.5-50.1) % [place] % (Auto) 9.0 H 8.4 H (2-8) % Eos % (Auto) 1.4 2.3 (1.0-3.0) % Baso % (Auto) 0.3 0.2 (0.0-1.0) % Sodium 141 (136-145) mmol/L Potassium 3.8 (3.5-5.1) mmol/L Chloride 96 L (98-107) mmol/L Carbon Dioxide 43 H* (21-32) mmol/L Anion Gap 5.8 L (7-13) mEq/L BUN 28 H (7-18) mg/dL Creatinine 1.60 H (0.55-1.02) mg/dL Est Cr Clr Drug Dosing 21.79 mL/min Estimated GFR (MDRD) 31 Glucose 134 H (74-99) mg/dL Calcium 8.1 L (8.5-10.1) mg/dL 03/06/20 Range/Units 06:15 WBC (5.0-10.0) 10^3/uL RBC (4.2-5.4) 10^6/uL Hgb (12.0-16.0) g/dL Hct (37.0-47.0) % MCV (80-100) fL MCH (27.0-34.0) pg MCHC (33.0-35.0) g/dL Plt Count (150-450) 10^3/uL Neut % (Auto) (42.2-75.2) % Lymph % (Auto) (20.5-50.1) % [place] % (Auto) (2-8) % Eos % (Auto) (1.0-3.0) % Baso % (Auto) (0.0-1.0) % Sodium 142 (136-145) mmol/L Potassium 3.4 L (3.5-5.1) mmol/L Chloride 97 L (98-107) mmol/L Carbon Dioxide 43 H* (21-32) mmol/L Anion Gap 5.4 L (7-13) mEq/L BUN 26 H (7-18) mg/dL Creatinine 1.59 H (0.55-1.02) mg/dL Est Cr Clr Drug Dosing 21.93 mL/min Estimated GFR (MDRD) 31 Glucose 103 H (74-99) mg/dL Calcium 7.9 L (8.5-10.1) mg/dL Raghavendra Results Last 24 Hours: Microbiology 03/04/20 19:18 Urine Culture - Preliminary Urine, Voided 03/04/20 16:05 Aerobic Blood Culture - Preliminary Blood - Venous - Lab Draw NO GROWTH AFTER 1 DAY Anaerobic Blood Culture - Preliminary NO GROWTH AFTER 1 DAY 03/04/20 15:58 Aerobic Blood Culture - Preliminary Blood - Venous NO GROWTH AFTER 1 DAY Anaerobic Blood Culture - Preliminary NO GROWTH AFTER 1 DAY 02/29/20 13:32 Aerobic Blood Culture - Final Blood NO GROWTH AFTER 5 DAYS Anaerobic Blood Culture - Final NO GROWTH AFTER 5 DAYS Med Orders - Current: Current Medications Acetaminophen (Tylenol Extra Strength) 500 mg PO BID [facility] Last Admin: 03/06/20 09:39 Dose: 500 mg Acetaminophen (Tylenol) 650 mg PO Q4H PRN PRN Reason: Pain (Mild 1-3)/fever Albuterol/Ipratropium (Duoneb 3.0-0.5 Mg/3 Ml) 3 ml NEB TIDRT [facility] Last Admin: 03/06/20 07:27 Dose: 3 ml Allopurinol (Zyloprim) 200 mg PO DAILY [facility] Last Admin: 03/06/20 09:39 Dose: 200 mg Atorvastatin Calcium (Lipitor) 20 mg PO BEDTIME [facility] Last Admin: 03/05/20 23:15 Dose: 20 mg Budesonide (Pulmicort) 0.5 mg NEB BIDRT [facility] Last Admin: 03/06/20 07:27 Dose: 0.5 mg Digoxin (Lanoxin) 125 mcg PO Q48H [facility] Last Admin: 03/04/20 17:24 Dose: 125 mcg Docusate Sodium (Colace) 100 mg PO BID [facility] Last Admin: 03/06/20 09:38 Dose: 100 mg Famotidine (Pepcid) 10 mg PO BID [facility] Last Admin: 03/06/20 09:38 Dose: 10 mg Ferrous Sulfate (Ferrous Sulfate) 325 mg PO BID [facility] Last Admin: 03/06/20 09:38 Dose: 325 mg Furosemide (Lasix) 40 mg IV BID [facility] Levofloxacin/Dextrose 750 mg/ (Premix) 150 mls @ 100 mls/hr IV Q48H [facility] Last Admin: 03/04/20 17:25 Dose: 100 mls/hr Levothyroxine Sodium (Levothyroxine) 112 mcg PO ACBRK [facility] Methyl Salicylate (Icy Hot Cream) 0 gm TOP QID PRN PRN Reason: Pain (mild 1-3) Last Admin: 03/04/20 21:16 Dose: 1 applic Metoprolol Tartrate (Lopressor) 25 mg PO BID [facility] Last Admin: 03/06/20 09:38 Dose: 25 mg Montelukast Sodium (Singulair) 10 mg PO BEDTIME [facility] Last Admin: 03/05/20 23:17 Dose: 10 mg Ondansetron HCl (Zofran Odt) 4 mg PO Q6H PRN PRN Reason: nausea, able to take PO Ondansetron HCl (Zofran) 4 mg IVPUSH Q6H PRN PRN Reason: Nausea/Vomiting Pantoprazole Sodium (Protonix) 40 mg PO BIDAC [facility] Last Admin: 03/06/20 06:49 Dose: 40 mg Polyethylene Glycol (Miralax) 17 gm PO DAILY [facility] Last Admin: 03/06/20 09:40 Dose: 17 gm Potassium Chloride (Klor-Con 10) 10 meq PO BEDTIME [facility] Last Admin: 03/05/20 23:15 Dose: 10 meq Potassium Chloride (Klor-Con 10) 20 meq PO ONETIME ONE Stop: 03/06/20 09:46 Rivaroxaban (Xarelto) 15 mg PO WITHDINNER [facility] Last Admin: 03/05/20 18:33 Dose: 15 mg Sodium Chloride (Saline Flush) 10 ml FLUSH ASDIRECTED PRN PRN Reason: Keep Vein Open Last Admin: 03/06/20 09:41 Dose: 10 ml Sucralfate (Carafate) 1 gm PO TIDAC [facility] Last Admin: 03/06/20 06:49 Dose: 1 gm Discontinued Medications Hydrocodone Bitart/Acetaminophen ([place] 325-10 Mg) 1 tab PO Q4H PRN PRN Reason: Pain (moderate 4-6) Budesonide (Pulmicort) 0.5 mg NEB BID [facility] Last Admin: 03/01/20 10:34 Dose: Not Given Furosemide (Lasix) 20 mg IV Q8H [facility] Last Admin: 03/03/20 09:21 Dose: 20 mg Furosemide (Lasix) 40 mg IV Q8H [facility] Last Admin: 03/04/20 17:25 Dose: 40 mg Furosemide (Lasix) 40 mg IV TID@0900,1400,1800 [facility] Last Admin: 03/06/20 09:41 Dose: 40 mg Ciprofloxacin/Dextrose 400 mg/ (Premix) 200 mls @ 200 mls/hr IV Q12HR [facility] Last Admin: 03/01/20 09:01 Dose: 200 mls/hr Ciprofloxacin/Dextrose 400 mg/ (Premix) 200 mls @ 200 mls/hr IV Q24H [facility] Last Admin: 03/04/20 09:06 Dose: 200 mls/hr Levofloxacin/Dextrose 750 mg/ (Premix) 150 mls @ 100 mls/hr IV Q24H [facility] Last Admin: 03/04/20 17:56 Dose: Not Given Levothyroxine Sodium (Levothyroxine) 112 mcg PO DAILY [facility] Last Admin: 03/05/20 08:11 Dose: 112 mcg Prednisone (Prednisone) 40 mg PO WITHBREAKFAST [facility] Last Admin: 03/02/20 08:53 Dose: 40 mg Rivaroxaban (Xarelto) 15 mg PO WITHDINNER [facility] Last Admin: 03/01/20 17:56 Dose: 15 mg Temazepam (Restoril) 15 mg PO BEDTIME PRN PRN Reason: Sleep - Exam Quality Assessment: Supplemental Oxygen General: Alert, Oriented Neck: Supple Lungs: Decreased Breath Sounds. No: Wheezing Cardiovascular: Regular Rate, Regular Rhythm GI/Abdominal Exam: Normal Bowel Sounds, Soft, Non-Tender, Other (morbid obesity) Extremities: No Pedal Edema Neurological: No New Focal Deficit Psy/Mental Status: Alert, Normal Affect, Normal Mood Sepsis Event Note - Evaluation Sepsis Screening Result: No Definite Risk - Focused Exam Vital Signs: Vital Signs Temp Pulse Pulse Resp BP BP Pulse Ox 03/06/20 09:38 77 100/47 L 03/06/20 08:06 97.6 F 77 20 100/47 L 95 03/06/20 07:29 86 03/05/20 23:16 92 110/37 L 03/05/20 22:00 Pulse Ox 03/06/20 09:38 03/06/20 08:06 03/06/20 07:29 95 03/05/20 23:16 03/05/20 22:00 92 L Date Exam was Performed: 03/06/20 Time Exam was Performed: 09:46 - Problem List & Annotations (1) Atrial fibrillation SNOMED Code(s): 72250905 Code(s): I48.91 - UNSPECIFIED ATRIAL FIBRILLATION Status: Acute Current Visit: No (2) CHF (congestive heart failure) SNOMED Code(s): 04242663 Code(s): I50.9 - HEART FAILURE, UNSPECIFIED Status: Acute Current Visit: No (3) Urinary tract infection SNOMED Code(s): 01228617 Code(s): N39.0 - URINARY TRACT INFECTION, SITE NOT SPECIFIED Status: Acute Current Visit: No Qualifiers: Urinary tract infection type: acute cystitis Hematuria presence: with hematuria Qualified Code(s): N30.01 - Acute cystitis with hematuria (4) HTN (hypertension) SNOMED Code(s): 87504856 Code(s): I10 - ESSENTIAL (PRIMARY) HYPERTENSION Status: Chronic Priority : Medium Current Visit: No Qualifiers: Hypertension type: essential hypertension Qualified Code(s): I10 - Essential (primary) hypertension - Problem List Review Problem List Initiated/Reviewed/Updated: Yes - My Orders Last 24 Hours: My Active Orders 03/05/20 10:48 Incentive Spirometry [RT Incentive Spirometry] [RC] Q2HWA 03/05/20 18:00 Rivaroxaban [Xarelto] 15 mg PO WITHDINNER 03/06/20 09:45 Potassium Chloride [Klor-Con 10] 20 meq PO ONETIME ONE 03/06/20 21:00 Furosemide [Lasix] 40 mg IV BID 03/07/20 05:15 BASIC METABOLIC PANEL,BMP [CHEM] AM CBC WITH AUTO DIFF [HEME] AM 03/07/20 06:00 Levothyroxine 112 mcg PO ACBRK - Plan Plan:: Shortness of breath This is multifactorial, likely a CHF component, COPD component. Chronic hypoxemic, hypercapnic respiratory failure Continue oxygen supplement as needed CO2 in the 70s but pH is compensated The patient has been on 2 L nasal cannula oxygen prior to admission Acute COPD exacerbation Had wheezing, shortness of breath - much improved continue to give DuoNeb scheduled and as needed off prednisone - with concern of GI bleed Continue Singulair acute encephalopahty Resolved Acute diastolic congestive heart failure Obtain echo for further characterization - when available edema is better We'll continue metoprolol decrease IV Lasix to BID Follow weight Use compression stocking anemia h/o iron def anemia received 2 u prbc tx on 03/03 occult blood: negative monitor hgb for possible GI bleed Given iron deficiency anemia Nevertheless occult blood from stool was negative stopped prednisone, xarelto cont protonix BID, sucralfate, pepcid Since hemoglobin is stable now I have resumed Xarelto leukocytosis improving Urine culture is repeated Chest x-ray was concerning for possible pneumonia Changed ciprofloxacin to levofloxacin for broader spectrum coverage Encourage using incentive spirometry Urinary tract infection UA: proteus mirabilis - sens to cipro repeat Uc: 03/04 - pending Started the patient on ciprofloxacin - switched to levofloxacin Atrial fibrillation Rate control with metoprolol, digoxin resumed Xarelto DVT prophylaxis will be with Xarelto
[2020-03-06] MEDS ORDERED: Potassium Chloride 10 MEQ Tab.ER PO ONE (10:00)
[2020-03-06] MEDS: Digoxin 125 MCG Tab PO SCH (16:08)
[2020-03-06] MEDS: Levofloxacin/Dextrose 5%-Water 750 MG in Premix Bag 1 BAG IV SCH (16:09)
[2020-03-06] MEDS ORDERED: diphenhydrAMINE 25 MG Tab PO ONE (16:46)
[2020-03-06] MEDS: Rivaroxaban 10 MG Tab PO SCH (17:31)
[2020-03-06] MEDS: Menthol/Methyl Salicylate 85 GM Tube TOP PRN (20:35)
[2020-03-06] MEDS: Potassium Chloride 10 MEQ Tab.ER PO SCH (21:20)
[2020-03-06] MEDS: atorvaSTATin 20 MG Tab PO SCH (21:20)
[2020-03-06] MEDS: Montelukast 10 MG Tab PO SCH (21:24)
[2020-03-07] MEDS: Albuterol/Ipratropium 3.0-0.5 MG/3 ML Neb Soln NEB SCH ×4 (02:58→21:12)
[2020-03-07] MEDS: Sucralfate 1 GM Tab PO SCH ×3 (06:23→17:20)
[2020-03-07] MEDS: Pantoprazole 40 MG Tab.CR PO SCH ×2 (06:24→17:20)
[2020-03-07] MEDS: Levothyroxine 112 MCG Tab PO SCH (06:24)
[2020-03-07 06:47] LABS: ANION GAP 4.3 mEq/L (7-13)
[2020-03-07] MEDS: Budesonide 0.5 MG/2 ML Neb Susp NEB SCH ×2 (07:25→21:18)
[2020-03-07] MEDS: Furosemide 40 MG/4 ML VIAL IV SCH ×2 (08:24→14:28)
[2020-03-07] MEDS: Polyethylene Glycol 3350 Powder 17 GM Packet PO SCH (08:24)
[2020-03-07] MEDS: Docusate Sodium 100 MG Cap PO SCH ×2 (08:25→21:11)
[2020-03-07] MEDS: Metoprolol Tartrate 25 MG Tab PO SCH ×2 (08:26→21:19)
[2020-03-07] MEDS: Famotidine 20 MG Tab PO SCH ×2 (08:26→21:12)
[2020-03-07] MEDS: Allopurinol 100 MG Tab PO SCH (08:27)
[2020-03-07] MEDS: Acetaminophen 500 MG Tab PO SCH ×2 (08:27→21:16)
[2020-03-07] MEDS: Ferrous Sulfate 325 MG Tab PO SCH ×2 (11:04→21:12)
--- NOTE | 2020-03-07 12:21 | PCM.PN ---
- General Info Date of Service: 03/07/20 Admission Dx/Problem (Free Text): Admission Diagnosis/Problem Admission Diagnosis/Problem CHF, Congestive heart failure Subjective Update: Pt seen and examined Lower extremity swelling is much better no confusion No shortness of breath with oxygen and at rest No fever or chills. Functional Status: Reports: Pain Controlled - Review of Systems General: Reports: No Symptoms HEENT: Reports: No Symptoms Pulmonary: Reports: No Symptoms Cardiovascular: Reports: No Symptoms Gastrointestinal: Reports: No Symptoms Genitourinary: Reports: No Symptoms Musculoskeletal: Reports: No Symptoms Skin: Reports: No Symptoms Neurological: Reports: No Symptoms Psychiatric: Reports: No Symptoms - Patient Data Vitals - Most Recent: Last Vital Signs Temp 36.7 C 03/07/20 07:55 Pulse 102 H 03/07/20 08:26 Resp 20 03/07/20 07:55 BP 126/66 03/07/20 08:26 Pulse Ox 92 L 03/07/20 07:55 Weight - Most Recent: 94.489 kg I&O - Last 24 Hours: Intake & Output 03/06/20 03/07/20 03/07/20 22:59 06:59 14:59 Intake Total 476 Balance 476 Lab Results Last 24 Hours: Laboratory Results - last 24 hr 03/07/20 03/07/20 Range/Units 06:13 06:13 WBC 12.9 H (5.0-10.0) 10^3/uL RBC 2.92 L (4.2-5.4) 10^6/uL Hgb 8.2 L (12.0-16.0) g/dL Hct 28.5 L (37.0-47.0) % MCV 97.6 (80-100) fL MCH 28.1 (27.0-34.0) pg MCHC 28.8 L (33.0-35.0) g/dL Plt Count 279 (150-450) 10^3/uL Neut % (Auto) 82.5 H (42.2-75.2) % Lymph % (Auto) 7.1 L (20.5-50.1) % Stearns % (Auto) 8.4 H (2-8) % Eos % (Auto) 1.8 (1.0-3.0) % Baso % (Auto) 0.2 (0.0-1.0) % Sodium 139 (136-145) mmol/L Potassium 3.3 L (3.5-5.1) mmol/L Chloride 96 L (98-107) mmol/L Carbon Dioxide 42 H* (21-32) mmol/L Anion Gap 4.3 L (7-13) mEq/L BUN 25 H (7-18) mg/dL Creatinine 1.53 H (0.55-1.02) mg/dL Est Cr Clr Drug Dosing 22.79 mL/min Estimated GFR (MDRD) 32 Glucose 116 H (74-99) mg/dL Calcium 7.9 L (8.5-10.1) mg/dL Raghavendra Results Last 24 Hours: Microbiology 03/04/20 19:18 Urine Culture - Final Urine, Voided Streptococcus Bovis Ii 03/04/20 16:05 Aerobic Blood Culture - Preliminary Blood - Venous - Lab Draw NO GROWTH AFTER 2 DAYS Anaerobic Blood Culture - Preliminary NO GROWTH AFTER 2 DAYS 03/04/20 15:58 Aerobic Blood Culture - Preliminary Blood - Venous NO GROWTH AFTER 2 DAYS Anaerobic Blood Culture - Preliminary NO GROWTH AFTER 2 DAYS Med Orders - Current: Current Medications Acetaminophen (Tylenol Extra Strength) 500 mg PO BID [facility] Last Admin: 03/07/20 08:27 Dose: 500 mg Acetaminophen (Tylenol) 650 mg PO Q4H PRN PRN Reason: Pain (Mild 1-3)/fever Albuterol/Ipratropium (Duoneb 3.0-0.5 Mg/3 Ml) 3 ml NEB TIDRT [facility] Last Admin: 03/07/20 07:25 Dose: 3 ml Allopurinol (Zyloprim) 200 mg PO DAILY [facility] Last Admin: 03/07/20 08:27 Dose: 200 mg Atorvastatin Calcium (Lipitor) 20 mg PO BEDTIME [facility] Last Admin: 03/06/20 21:20 Dose: 20 mg Budesonide (Pulmicort) 0.5 mg NEB BID@0700,2100 [facility] Last Admin: 03/07/20 07:25 Dose: 0.5 mg Digoxin (Lanoxin) 125 mcg PO Q48H [facility] Last Admin: 03/06/20 16:08 Dose: 125 mcg Docusate Sodium (Colace) 100 mg PO BID [facility] Last Admin: 03/07/20 08:25 Dose: 100 mg Famotidine (Pepcid) 10 mg PO BID [facility] Last Admin: 03/07/20 08:26 Dose: 10 mg Ferrous Sulfate (Ferrous Sulfate) 325 mg PO BID [facility] Last Admin: 03/07/20 11:04 Dose: 325 mg Furosemide (Lasix) 40 mg IV BIDDIURETIC [facility] Last Admin: 03/07/20 08:24 Dose: 40 mg Levothyroxine Sodium (Levothyroxine) 112 mcg PO ACBRK [facility] Last Admin: 03/07/20 06:24 Dose: 112 mcg Methyl Salicylate (Icy Hot Cream) 0 gm TOP QID PRN PRN Reason: Pain (mild 1-3) Last Admin: 03/06/20 20:35 Dose: 1 applic Metoprolol Tartrate (Lopressor) 25 mg PO BID [facility] Last Admin: 03/07/20 08:26 Dose: 25 mg Montelukast Sodium (Singulair) 10 mg PO BEDTIME [facility] Last Admin: 03/06/20 21:24 Dose: 10 mg Ondansetron HCl (Zofran Odt) 4 mg PO Q6H PRN PRN Reason: nausea, able to take PO Ondansetron HCl (Zofran) 4 mg IVPUSH Q6H PRN PRN Reason: Nausea/Vomiting Pantoprazole Sodium (Protonix) 40 mg PO BIDAC [facility] Last Admin: 03/07/20 06:24 Dose: 40 mg Polyethylene Glycol (Miralax) 17 gm PO DAILY [facility] Last Admin: 03/07/20 08:24 Dose: 17 gm Potassium Chloride (Klor-Con 10) 10 meq PO BEDTIME [facility] Last Admin: 03/06/20 21:20 Dose: 10 meq Rivaroxaban (Xarelto) 15 mg PO WITHDINNER [facility] Last Admin: 03/06/20 17:31 Dose: 15 mg Sodium Chloride (Saline Flush) 10 ml FLUSH ASDIRECTED PRN PRN Reason: Keep Vein Open Last Admin: 03/06/20 17:32 Dose: 10 ml Sucralfate (Carafate) 1 gm PO TIDAC [facility] Last Admin: 03/07/20 11:04 Dose: 1 gm Discontinued Medications Hydrocodone Bitart/Acetaminophen ([place] 325-10 Mg) 1 tab PO Q4H PRN PRN Reason: Pain (moderate 4-6) Budesonide (Pulmicort) 0.5 mg NEB BID [facility] Last Admin: 03/01/20 10:34 Dose: Not Given Budesonide (Pulmicort) 0.5 mg NEB BIDRT [facility] Last Admin: 03/06/20 07:27 Dose: 0.5 mg Diphenhydramine HCl (Benadryl) 25 mg PO ONETIME ONE Stop: 03/06/20 16:47 Last Admin: 03/06/20 17:00 Dose: 25 mg Furosemide (Lasix) 20 mg IV Q8H [facility] Last Admin: 03/03/20 09:21 Dose: 20 mg Furosemide (Lasix) 40 mg IV Q8H [facility] Last Admin: 03/04/20 17:25 Dose: 40 mg Furosemide (Lasix) 40 mg IV TID@0900,1400,1800 [facility] Last Admin: 03/06/20 09:41 Dose: 40 mg Ciprofloxacin/Dextrose 400 mg/ (Premix) 200 mls @ 200 mls/hr IV Q12HR [facility] Last Admin: 03/01/20 09:01 Dose: 200 mls/hr Ciprofloxacin/Dextrose 400 mg/ (Premix) 200 mls @ 200 mls/hr IV Q24H [facility] Last Admin: 03/04/20 09:06 Dose: 200 mls/hr Levofloxacin/Dextrose 750 mg/ (Premix) 150 mls @ 100 mls/hr IV Q24H [facility] Last Admin: 03/04/20 17:56 Dose: Not Given Levofloxacin/Dextrose 750 mg/ (Premix) 150 mls @ 100 mls/hr IV Q48H [facility] Last Admin: 03/06/20 16:09 Dose: 100 mls/hr Aztreonam 1 gm/ Sodium (Chloride) 50 mls @ 100 mls/hr IV Q8HR [facility] Last Admin: 03/07/20 06:23 Dose: 100 mls/hr Levothyroxine Sodium (Levothyroxine) 112 mcg PO DAILY [facility] Last Admin: 03/05/20 08:11 Dose: 112 mcg Potassium Chloride (Klor-Con 10) 20 meq PO ONETIME ONE Stop: 03/06/20 10:01 Last Admin: 03/06/20 10:16 Dose: 20 meq Prednisone (Prednisone) 40 mg PO WITHBREAKFAST [facility] Last Admin: 03/02/20 08:53 Dose: 40 mg Rivaroxaban (Xarelto) 15 mg PO WITHDINNER [facility] Last Admin: 03/01/20 17:56 Dose: 15 mg Temazepam (Restoril) 15 mg PO BEDTIME PRN PRN Reason: Sleep - Exam General: Alert, Oriented HEENT: Pupils Equal, Pupils Reactive Neck: Supple Lungs: Clear to Auscultation Cardiovascular: Regular Rate, Regular Rhythm GI/Abdominal Exam: Normal Bowel Sounds, Soft, Non-Tender Extremities: Normal Inspection, Normal Range of Motion, Non-Tender, No Pedal Edema Sepsis Event Note - Evaluation Sepsis Screening Result: No Definite Risk - Focused Exam Vital Signs: Vital Signs Temp Pulse Pulse Resp BP BP Pulse Ox 03/07/20 08:26 102 H 126/66 03/07/20 07:55 36.7 C 102 H 20 126/66 92 L 03/07/20 07:25 81 03/07/20 04:00 36.6 C 100 22 H 116/32 L 98 03/07/20 02:59 Pulse Ox 03/07/20 08:26 03/07/20 07:55 03/07/20 07:25 92 L 03/07/20 04:00 03/07/20 02:59 93 L Date Exam was Performed: 03/07/20 Time Exam was Performed: 12:16 - Problem List Review Problem List Initiated/Reviewed/Updated: Yes - Plan Plan:: Shortness of breath This is multifactorial, likely a CHF component, COPD component. #Chronic hypoxemic, hypercapnic respiratory failure Continue oxygen supplement as needed Oxygen req back to baseline. 2L NC #Acute COPD exacerbation improved, stable. Continue duonebs Continue Singulair #Acute encephalopahty Resolved #Acute diastolic congestive heart failure leg swelling improved We'll continue metoprolol continue IV Lasix to BID Follow weight Use compression stocking #anemia h/o iron def anemia received 2 u prbc tx on 03/03 occult blood: negative monitor hgb, stable #leukocytosis #pneumonia Chest x-ray was concerning for possible pneumonia Switch aztreonam to oral linezolid. Plan to treat for 14 days total Encourage using incentive spirometry #Urinary tract infection repeat Uc: 03/04 - growing enterococcus, sensitive to linezolid continue linezolid Atrial fibrillation Rate control with metoprolol, digoxin Anticoagulation: Continue Xarelto DVT prophylaxis will be with Xarelto Dispo: DC to half-way tomorrow.
[2020-03-07] MEDS: LINEZOLID 600 MG PO SCH ×2 (14:27→21:18)
[2020-03-07] MEDS: Rivaroxaban 10 MG Tab PO SCH (17:20)
[2020-03-07] MEDS: Potassium Chloride 10 MEQ Tab.ER PO SCH (21:12)
[2020-03-07] MEDS: atorvaSTATin 20 MG Tab PO SCH (21:12)
[2020-03-07] MEDS: Montelukast 10 MG Tab PO SCH (21:16)
[2020-03-07] MEDS: Menthol/Methyl Salicylate 85 GM Tube TOP PRN (21:36)
[2020-03-08] MEDS: Sucralfate 1 GM Tab PO SCH ×2 (05:53→11:39)
[2020-03-08] MEDS: Pantoprazole 40 MG Tab.CR PO SCH (05:53)
[2020-03-08] MEDS: Levothyroxine 112 MCG Tab PO SCH (05:54)
[2020-03-08] MEDS: Budesonide 0.5 MG/2 ML Neb Susp NEB SCH (07:19)
[2020-03-08] MEDS: Albuterol/Ipratropium 3.0-0.5 MG/3 ML Neb Soln NEB SCH (07:19)
[2020-03-08 08:03] VITALS: BP 114/41; PULSE 96
--- NOTE | 2020-03-08 09:50 | PCM.DCSUM1 ---
Discharge Summary - Hospital Course Free Text/Narrative:: 84 years old with a history of COPD, chronic home oxygen dependent at 2 L/m nasal cannula, congestive heart failure, morbid obesity who presented with 3 weeks of SOB, leg swelling. She was managed for CHF exacerbation, COPD exacerbation. She improved remarkably during admission with leg swelling reduced and SOB resolving. Oxygen requirement trended back down to baseline. Leucocytosis recurred during admission, and repeat CXR showed possible pneumonia. Urinalysis was also positive for UTI and urine cx grew enterococcus sensitive to linezolid. Was discharged on a linezolid analog for 5 days. Follow up with PCP Diagnosis: Stroke: No - Discharge Data Discharge Date: 03/08/20 Discharge Disposition: DC/Tfer to SNF 03 Condition: Stable - Referral to Home Health Primary Care Physician: Zack Dunaway MD - Patient Instructions Diet: Usual Diet as Tolerated Activity: As Tolerated - Discharge Plan *PRESCRIPTION DRUG MONITORING PROGRAM REVIEWED*: Not Applicable *COPY OF PRESCRIPTION DRUG MONITORING REPORT IN PATIENT TONO: Not Applicable Prescriptions/Med Rec: Tedizolid Phosphate [Sivextro] 200 mg PO DAILY 5 Days #5 tablet Home Medications: Home Meds atorvaSTATin [Lipitor] 20 mg PO BEDTIME 06/21/15 [History] Digoxin [Lanoxin] 125 mcg PO Q48H 01/01/16 [History] Ipratropium/Albuterol Sulfate [Combivent Respimat 20-100 Mcg] 1 puff IH QID PRN 01/01/16 [History] Rivaroxaban [Xarelto] 15 mg PO DAILY 01/01/16 [History] Budesonide [Pulmicort] 2 ml NEB BID 02/20/16 [History] Montelukast [Singulair] 10 mg PO BEDTIME 05/20/16 [History] Albuterol/Ipratropium [DuoNeb 3.0-0.5 MG/3 ML] 3 ml NEB ASDIRECTED 08/05/16 [ History] Acetaminophen [Tylenol Extra Strength] 500 mg PO BID 01/18/20 [History] Cholecalciferol (Vitamin D3) [Vitamin D3] 1,000 unit PO DAILY 01/18/20 [History] Diclofenac Sodium [Voltaren 1% Gel] 1 dose TOP ASDIRECTED PRN 01/18/20 [History] Docusate Sodium [Colace] 100 mg PO BID 01/18/20 [History] L. Acidophilus/L.bulgaricus [Floranex Tablet] 1 tab PO DAILY 01/18/20 [History] Levothyroxine 112 mcg PO DAILY 01/18/20 [History] Metoprolol Tartrate 25 mg PO BID 01/18/20 [History] Torsemide [Demadex] 80 mg PO DAILY 01/18/20 [History] allopurinoL [Zyloprim] 200 mg PO DAILY 01/18/20 [History] polyethylene glycoL 3350 [Miralax] 17 gm PO DAILY 01/18/20 [History] Acetaminophen 500 mg PO Q6H PRN 02/29/20 [History] Cyanocobalamin (Vitamin B-12) [B-12 Compliance] 1,000 mcg IJ ASDIRECTED [History] Ferrous Sulfate [Iron] 325 mg PO BID 02/29/20 [History] Fluticasone Propionate [Flovent] 50 mcg NASBOTH DAILY PRN 02/29/20 [History] Hydrocodone/Acetaminophen [Hydrocodone-Acetamin 10-325 mg] 10 - 325 mg PO Q6H PRN 02/29/20 [History] Magnesium Hydroxide [Milk of Magnesia] 30 ml PO DAILY PRN 02/29/20 [History] Menthol [Icy Hot] 118 ml TP BID PRN 02/29/20 [History] Nystatin 1 each TOP BID PRN 02/29/20 [History] Triamcinolone Acetonide [Triamcinolone Acetonide 0.1% Crm] 1 applic TOP Q8H PRN 02/29/20 [History] Trolamine Salicylate/Aloe Vera [Aspercreme 10%] 85 gm TOP BID PRN 02/29/20 [ History] bisacodyL [Dulcolax] 10 mg RC DAILY PRN 02/29/20 [History] guaiFENesin [Robitussin] 200 mg PO Q4H PRN 02/29/20 [History] Tedizolid Phosphate [Sivextro] 200 mg PO DAILY 5 Days #5 tablet 03/08/20 [Rx] Oxygen Therapy Mode: Nasal Cannula (2L) Oxygen Flow Rate (L/min): 2 Maintain SPO2% less than: 90 Referrals: Zack Dunaway MD [Primary Care Provider] - - Discharge Summary/Plan Comment DC Time >30 min.: Yes - General Info Date of Service: 03/08/20 Admission Dx/Problem (Free Text: Admission Diagnosis/Problem Admission Diagnosis/Problem CHF, Congestive heart failure Subjective Update: Pt seen and examined Lower extremity swelling is much better no confusion No shortness of breath with oxygen and at rest No fever or chills. - Review of Systems General: Reports: No Symptoms HEENT: Reports: No Symptoms Pulmonary: Reports: No Symptoms Cardiovascular: Reports: No Symptoms Gastrointestinal: Reports: No Symptoms Genitourinary: Reports: No Symptoms Musculoskeletal: Reports: No Symptoms Skin: Reports: No Symptoms Neurological: Reports: No Symptoms Psychiatric: Reports: No Symptoms - Patient Data Vitals - Most Recent: Last Vital Signs Temp 37.1 C 03/08/20 08:03 Pulse 96 03/08/20 08:03 Resp 20 03/08/20 08:03 BP 114/41 L 03/08/20 08:03 Pulse Ox 98 03/08/20 08:03 Weight - Most Recent: 92.618 kg I&O - Last 24 hours: Intake & Output 03/07/20 03/08/20 03/08/20 22:59 06:59 14:59 Intake Total 240 540 Balance 240 540 SAULO Results - Last 24 hrs: Microbiology 03/04/20 16:05 Aerobic Blood Culture - Preliminary Blood - Venous - Lab Draw NO GROWTH AFTER 3 DAYS Anaerobic Blood Culture - Preliminary NO GROWTH AFTER 3 DAYS 03/04/20 15:58 Aerobic Blood Culture - Preliminary Blood - Venous NO GROWTH AFTER 3 DAYS Anaerobic Blood Culture - Preliminary NO GROWTH AFTER 3 DAYS 03/04/20 19:18 Urine Culture - Final Urine, Voided Streptococcus Bovis Ii Med Orders - Current: Current Medications Acetaminophen (Tylenol Extra Strength) 500 mg PO BID [facility] Last Admin: 03/07/20 21:16 Dose: 500 mg Acetaminophen (Tylenol) 650 mg PO Q4H PRN PRN Reason: Pain (Mild 1-3)/fever Albuterol/Ipratropium (Duoneb 3.0-0.5 Mg/3 Ml) 3 ml NEB TIDRT [facility] Last Admin: 03/08/20 07:19 Dose: 3 ml Allopurinol (Zyloprim) 200 mg PO DAILY [facility] Last Admin: 03/07/20 08:27 Dose: 200 mg Atorvastatin Calcium (Lipitor) 20 mg PO BEDTIME [facility] Last Admin: 03/07/20 21:12 Dose: 20 mg Budesonide (Pulmicort) 0.5 mg NEB BID@0700,2100 [facility] Last Admin: 03/08/20 07:19 Dose: 0.5 mg Digoxin (Lanoxin) 125 mcg PO Q48H [facility] Last Admin: 03/06/20 16:08 Dose: 125 mcg Docusate Sodium (Colace) 100 mg PO BID [facility] Last Admin: 03/07/20 21:11 Dose: Not Given Famotidine (Pepcid) 10 mg PO BID [facility] Last Admin: 03/07/20 21:12 Dose: 10 mg Ferrous Sulfate (Ferrous Sulfate) 325 mg PO BID [facility] Last Admin: 03/07/20 21:12 Dose: 325 mg Furosemide (Lasix) 40 mg IV BIDDIURETIC [facility] Last Admin: 03/07/20 14:28 Dose: 40 mg Levothyroxine Sodium (Levothyroxine) 112 mcg PO ACBRK [facility] Last Admin: 03/08/20 05:54 Dose: 112 mcg Linezolid (Zyvox) 600 mg PO Q12HR [facility] Last Admin: 03/07/20 21:18 Dose: 600 mg Methyl Salicylate (Icy Hot Cream) 0 gm TOP QID PRN PRN Reason: Pain (mild 1-3) Last Admin: 03/07/20 21:36 Dose: 1 applic Metoprolol Tartrate (Lopressor) 25 mg PO BID [facility] Last Admin: 03/07/20 21:19 Dose: Not Given Montelukast Sodium (Singulair) 10 mg PO BEDTIME [facility] Last Admin: 03/07/20 21:16 Dose: 10 mg Ondansetron HCl (Zofran Odt) 4 mg PO Q6H PRN PRN Reason: nausea, able to take PO Ondansetron HCl (Zofran) 4 mg IVPUSH Q6H PRN PRN Reason: Nausea/Vomiting Pantoprazole Sodium (Protonix) 40 mg PO BIDAC [facility] Last Admin: 03/08/20 05:53 Dose: 40 mg Polyethylene Glycol (Miralax) 17 gm PO DAILY [facility] Last Admin: 03/07/20 08:24 Dose: 17 gm Potassium Chloride (Klor-Con 10) 10 meq PO BEDTIME [facility] Last Admin: 03/07/20 21:12 Dose: 10 meq Rivaroxaban (Xarelto) 15 mg PO WITHDINNER [facility] Last Admin: 03/07/20 17:20 Dose: 15 mg Sodium Chloride (Saline Flush) 10 ml FLUSH ASDIRECTED PRN PRN Reason: Keep Vein Open Last Admin: 03/06/20 17:32 Dose: 10 ml Sucralfate (Carafate) 1 gm PO TIDAC [facility] Last Admin: 03/08/20 05:53 Dose: 1 gm Discontinued Medications Hydrocodone Bitart/Acetaminophen ([place] 325-10 Mg) 1 tab PO Q4H PRN PRN Reason: Pain (moderate 4-6) Budesonide (Pulmicort) 0.5 mg NEB BID [facility] Last Admin: 03/01/20 10:34 Dose: Not Given Budesonide (Pulmicort) 0.5 mg NEB BIDRT [facility] Last Admin: 03/06/20 07:27 Dose: 0.5 mg Diphenhydramine HCl (Benadryl) 25 mg PO ONETIME ONE Stop: 03/06/20 16:47 Last Admin: 03/06/20 17:00 Dose: 25 mg Furosemide (Lasix) 20 mg IV Q8H [facility] Last Admin: 03/03/20 09:21 Dose: 20 mg Furosemide (Lasix) 40 mg IV Q8H [facility] Last Admin: 03/04/20 17:25 Dose: 40 mg Furosemide (Lasix) 40 mg IV TID@0900,1400,1800 [facility] Last Admin: 03/06/20 09:41 Dose: 40 mg Ciprofloxacin/Dextrose 400 mg/ (Premix) 200 mls @ 200 mls/hr IV Q12HR [facility] Last Admin: 03/01/20 09:01 Dose: 200 mls/hr Ciprofloxacin/Dextrose 400 mg/ (Premix) 200 mls @ 200 mls/hr IV Q24H [facility] Last Admin: 03/04/20 09:06 Dose: 200 mls/hr Levofloxacin/Dextrose 750 mg/ (Premix) 150 mls @ 100 mls/hr IV Q24H [facility] Last Admin: 03/04/20 17:56 Dose: Not Given Levofloxacin/Dextrose 750 mg/ (Premix) 150 mls @ 100 mls/hr IV Q48H [facility] Last Admin: 03/06/20 16:09 Dose: 100 mls/hr Aztreonam 1 gm/ Sodium (Chloride) 50 mls @ 100 mls/hr IV Q8HR [facility] Last Admin: 03/07/20 06:23 Dose: 100 mls/hr Levothyroxine Sodium (Levothyroxine) 112 mcg PO DAILY [facility] Last Admin: 03/05/20 08:11 Dose: 112 mcg Potassium Chloride (Klor-Con 10) 20 meq PO ONETIME ONE Stop: 03/06/20 10:01 Last Admin: 03/06/20 10:16 Dose: 20 meq Prednisone (Prednisone) 40 mg PO WITHBREAKFAST [facility] Last Admin: 03/02/20 08:53 Dose: 40 mg Rivaroxaban (Xarelto) 15 mg PO WITHDINNER [facility] Last Admin: 03/01/20 17:56 Dose: 15 mg Temazepam (Restoril) 15 mg PO BEDTIME PRN PRN Reason: Sleep - Exam General: Reports: Alert, Oriented HEENT: Reports: Pupils Equal, Pupils Reactive Neck: Reports: Supple Lungs: Reports: Clear to Auscultation, Normal Respiratory Effort Cardiovascular: Reports: Regular Rate, Regular Rhythm GI/Abdominal Exam: Normal Bowel Sounds, Soft Extremities: Normal Inspection, Normal Range of Motion, Non-Tender, No Pedal Edema Neurological: Reports: No New Focal Deficit
[2020-03-08] MEDS: Docusate Sodium 100 MG Cap PO SCH (11:38)
[2020-03-08] MEDS: Furosemide 40 MG/4 ML VIAL IV SCH (11:38)
[2020-03-08] MEDS: Ferrous Sulfate 325 MG Tab PO SCH (11:38)
[2020-03-08] MEDS: Acetaminophen 500 MG Tab PO SCH (11:38)
[2020-03-08] MEDS: Metoprolol Tartrate 25 MG Tab PO SCH (11:38)
[2020-03-08] MEDS: Famotidine 20 MG Tab PO SCH (11:39)
[2020-03-08] MEDS: Allopurinol 100 MG Tab PO SCH (11:39)
[2020-03-08] MEDS: LINEZOLID 600 MG PO SCH (11:39)
[2020-03-08] MEDS: Polyethylene Glycol 3350 Powder 17 GM Packet PO SCH (11:39)
== END 2020-03-08 10:45 | DRG 291 ==
LOC: DL.ED 13:51 → DL.MS 15:17
PROVIDERS: ADMIT Internal Medicine; ATTEND Hospitalist
DX: I11.0 Hypertensive heart disease with heart failure (principal); I50.31 Acute diastolic (congestive) heart failure; J18.9 Pneumonia, unspecified organism; J44.0 Chronic obstructive pulmonary disease with (acute) lower respiratory infection; Z99.81 Dependence on supplemental oxygen; N39.0 Urinary tract infection, site not specified; J96.11 Chronic respiratory failure with hypoxia; J96.12 Chronic respiratory failure with hypercapnia; G93.40 Encephalopathy, unspecified; N30.01 Acute cystitis with hematuria; J44.1 Chronic obstructive pulmonary disease with (acute) exacerbation; I50.33 Acute on chronic diastolic (congestive) heart failure; Z79.01 Long term (current) use of anticoagulants; I48.91 Unspecified atrial fibrillation; D64.9 Anemia, unspecified; B95.2 Enterococcus as the cause of diseases classified elsewhere; I25.10 Atherosclerotic heart disease of native coronary artery without angina pectoris; E66.01 Morbid (severe) obesity due to excess calories; E78.00 Pure hypercholesterolemia, unspecified; G47.30 Sleep apnea, unspecified; K59.09 Other constipation; M19.90 Unspecified osteoarthritis, unspecified site; M54.2 Cervicalgia; G89.29 Other chronic pain; E11.9 Type 2 diabetes mellitus without complications; E03.9 Hypothyroidism, unspecified; Z79.890 Hormone replacement therapy; Z79.899 Other long term (current) drug therapy; Z87.891 Personal history of nicotine dependence; Z28.82 Immunization not carried out because of caregiver refusal; Z88.0 Allergy status to penicillin; Z68.35 Body mass index [BMI] 35.0-35.9, adult
CPT/HCPCS: 36415; 36430; 36600; 71045; 80048; 80053; 80162; 81001; 82270; 82607; 82746; 82803; 83540; 83550; 83605; 83880; 84484; 85025; 86850; 86900; 86901; 86920; 86922; 87040; 87086; 87088; 87186; 93005; 94010; 94640; 99284; 99285-25; A9270-GY; J0744; J1940; J1956; J3490; J7050; J7620-GY; P9016; U0002

== ENCOUNTER 2020-04-13 12:46 | Inpatient (IN) | payer MEDICARE, BC ==
--- NOTE | 2020-04-13 13:00 | PCM.HP ---
H&P History of Present Illness - General Date of Service: 04/13/20 Admit Problem/Dx: dvt, anemia Source of Information: Patient, Provider (Dr. Mai) - History of Present Illness Initial Comments - Free Text/Narative: 84 years old lady with a history of atrial fibrillation on anticoagulation with Xarelto, congestive heart failure with last echocardiogram in December 2016 ejection fraction about 60%, history of COPD. The patient was recently noted to have increasing edema, diuretics were increased, metolazone was added to torsemide She was also noted to have an acute DVT while on anticoagulation with Xarelto. Plan was to transition to Lovenox and Coumadin. She also has a history of anemia and required blood transfusion in the past. GI workup was initiated but the patient did not want further endoscopies. On the day of admission the patient was noted to have a hemoglobin of 7 at the clinic. The patient was transferred to Hospital for further evaluation and treatment. - Related Data Allergies/Adverse Reactions: Allergies Allergy/AdvReac Type Severity Reaction Status Date / Time levofloxacin [From Levaquin] Allergy Mild Itching Verified 04/13/20 12:58 metformin Allergy Mild Diarrhea Verified 04/13/20 12:58 penicillin Allergy Mild Edema Verified 04/13/20 12:58 Sulfa (Sulfonamide Allergy Mild Cannot Verified 04/13/20 12:58 Antibiotics) Remember Home Medications: Home Meds atorvaSTATin [Lipitor] 20 mg PO BEDTIME 06/21/15 [History] Digoxin [Lanoxin] 125 mcg PO Q48H 01/01/16 [History] Ipratropium/Albuterol Sulfate [Combivent Respimat 20-100 Mcg] 1 puff IH QID PRN 01/01/16 [History] Rivaroxaban [Xarelto] 15 mg PO DAILY 01/01/16 [History] Budesonide [Pulmicort] 2 ml NEB BID 02/20/16 [History] Montelukast [Singulair] 10 mg PO BEDTIME 05/20/16 [History] Albuterol/Ipratropium [DuoNeb 3.0-0.5 MG/3 ML] 3 ml NEB ASDIRECTED 08/05/16 [ History] Acetaminophen [Tylenol Extra Strength] 500 mg PO BID 01/18/20 [History] Cholecalciferol (Vitamin D3) [Vitamin D3] 1,000 unit PO DAILY 01/18/20 [History] Diclofenac Sodium [Voltaren 1% Gel] 1 dose TOP ASDIRECTED PRN 01/18/20 [History] Docusate Sodium [Colace] 100 mg PO BID 01/18/20 [History] L. Acidophilus/L.bulgaricus [Floranex Tablet] 1 tab PO DAILY 01/18/20 [History] Levothyroxine 112 mcg PO DAILY 01/18/20 [History] Metoprolol Tartrate 25 mg PO BID 01/18/20 [History] Torsemide [Demadex] 80 mg PO DAILY 01/18/20 [History] allopurinoL [Zyloprim] 200 mg PO DAILY 01/18/20 [History] polyethylene glycoL 3350 [Miralax] 17 gm PO DAILY 01/18/20 [History] Acetaminophen 500 mg PO Q6H PRN 02/29/20 [History] Cyanocobalamin (Vitamin B-12) [B-12 Compliance] 1,000 mcg IJ ASDIRECTED [History] Ferrous Sulfate [Iron] 325 mg PO BID 02/29/20 [History] Fluticasone Propionate [Flovent] 50 mcg NASBOTH DAILY PRN 02/29/20 [History] Hydrocodone/Acetaminophen [Hydrocodone-Acetamin 10-325 mg] 10 - 325 mg PO Q6H PRN 02/29/20 [History] Magnesium Hydroxide [Milk of Magnesia] 30 ml PO DAILY PRN 02/29/20 [History] Menthol [Icy Hot] 118 ml TP BID PRN 02/29/20 [History] Nystatin 1 each TOP BID PRN 02/29/20 [History] Triamcinolone Acetonide [Triamcinolone Acetonide 0.1% Crm] 1 applic TOP Q8H PRN 02/29/20 [History] Trolamine Salicylate/Aloe Vera [Aspercreme 10%] 85 gm TOP BID PRN 02/29/20 [ History] bisacodyL [Dulcolax] 10 mg RC DAILY PRN 02/29/20 [History] guaiFENesin [Robitussin] 200 mg PO Q4H PRN 02/29/20 [History] Tedizolid Phosphate [Sivextro] 200 mg PO DAILY 5 Days #5 tablet 03/08/20 [Rx] Past Medical History HEENT History: Reports: Impaired Vision Cardiovascular History: Reports: Afib, CAD, Heart Failure, High Cholesterol, Hypertension, Pulmonary Hypertension, SOB on Exertion Other Cardiovascular History: unsure if she has had an irregular heart beat in the past, a.fib with rapid ventricular response. Respiratory History: Reports: COPD, Sleep Apnea, SOB Other Respiratory History: CPAP machine at home, slightly broken Gastrointestinal History: Reports: Chronic Constipation Genitourinary History: Reports: Acute Renal Failure, Urinary Incontinence SPECIAL EVENTS MANAGER History: Reports: Other OB/BYN History: miscarriage, blocked tubes bilat Musculoskeletal History: Reports: Neck Pain, Chronic, Osteoarthritis Neurological History: Reports: None Psychiatric History: Reports: Emotional Problems Endocrine/Metabolic History: Reports: Diabetes, Type II, Hypothyroidism, Obesity /BMI 30+ Hematologic History: Reports: Anemia, Anticoagulation Therapy Immunologic History: Reports: None Oncologic (Cancer) History: Reports: None Dermatologic History: Reports: Other (See Below) Other Dermatologic History: spot removed on nose a long time ago - Infectious Disease History Infectious Disease History: Reports: Chicken Pox, Measles, Mumps, Shingles - Past Surgical History Head Surgeries/Procedures: Reports: None HEENT Surgical History: Reports: Cataract Surgery, Tonsillectomy Cardiovascular Surgical History: Reports: None Respiratory Surgical History: Reports: None GI Surgical History: Reports: Appendectomy Female Surgical History: Reports: Hysterectomy Musculoskeletal Surgical History: Reports: Joint Replacement, Knee Replacement Social & Family History - Family History Family Medical History: Noncontributory - Caffeine Use Caffeine Use: Reports: Coffee Caffeine Use Comment: 2 cups daily - Living Situation & Occupation Living situation: Reports: , Alone, Other Occupation: Retired H&P Review of Systems - Review of Systems: Review Of Systems: See Below General: Denies: Fever, Chills Pulmonary: Reports: Shortness of Breath (with activity) Cardiovascular: Reports: Edema (b/l ). Denies: Chest Pain Gastrointestinal: Denies: Abdominal Pain, Diarrhea Genitourinary: Denies: Dysuria Psychiatric: Denies: Confusion Hematologic/Lymphatic: Reports: Anemia Exam - Exam Exam: See Below - Exam Quality Assessment: Supplemental Oxygen General: Alert, Oriented Neck: Supple Lungs: Clear to Auscultation, Normal Respiratory Effort. No: Wheezing Cardiovascular: Regular Rate, Regular Rhythm GI/Abdominal Exam: Normal Bowel Sounds, Soft, Non-Tender, Other (obese) Extremities: Pedal Edema (b/l 3+ upto knee) Skin: Warm, Dry, Other (erythema b/l legs) Neuro Extensive - Mental Status: Alert, Oriented x3 Psychiatric: Alert, Normal Affect, Normal Mood - Patient Data Lab Results Last 24 hrs: Laboratory studies from [facility] showed white count of 10.0, hemoglobin 7.0, platelet 408 BUN 31, bicarbonate 48, creatinine 1.5, potassium 3.8 renal us IMPRESSION: Deep venous thrombosis of the RIGHT lower extremity as discussed above. Scattered soft tissue edema. - Problem List (1) DVT (deep venous thrombosis) SNOMED Code(s): 267122290 ICD Code: I82.409 - ACUTE EMBOLISM AND THOMBOS UNSP DEEP VN UNSP LOWER EXTREMITY Status: Acute Current Visit: Yes (2) Anemia SNOMED Code(s): 449101254 ICD Code: D64.9 - ANEMIA, UNSPECIFIED Status: Acute Current Visit: Yes (3) Atrial fibrillation SNOMED Code(s): 46465962 ICD Code: I48.91 - UNSPECIFIED ATRIAL FIBRILLATION Status: Acute Current Visit: No (4) Hypoxia SNOMED Code(s): 675723184 ICD Code: R09.02 - HYPOXEMIA Status: Acute Priority: High Current Visit : No Onset Date: 02/20/16 (5) COPD (chronic obstructive pulmonary disease) SNOMED Code(s): 83692080 ICD Code: J44.9 - CHRONIC OBSTRUCTIVE PULMONARY DISEASE, UNSPECIFIED Status : Chronic Priority: Medium Current Visit: No Qualifiers: COPD type: chronic bronchitis Chronic bronchitis type: unspecified Qualified Code(s): J42 - Unspecified chronic bronchitis (6) Chronic atrial fibrillation SNOMED Code(s): 482571490 ICD Code: I48.2 - CHRONIC ATRIAL FIBRILLATION * DO NOT USE * Status: Chronic Priority: Medium Current Visit: No Onset Date: 02/20/16 Problem List Initiated/Reviewed/Updated: Yes Assessment/Plan Comment:: chronic Shortness of breath - worse with activity This is multifactorial, due to chronic CHF component, COPD component, anemia. Chronic hypoxemic, hypercapnic respiratory failure Continue oxygen supplement as needed The patient has been on 2 L nasal cannula oxygen prior to admission Massive LE edema will obtain echo for characterization cont diuretics - transition to IV Lasix use vasquez Stocking follow elytes Anemia h/o iron def anemia opted for no further endoscopies - cont iron supplement will give 1 unit of prbc tx. today discussed risks, benefits, alternatives with pt cont anticoagulation unless evidence of ongoing gi bleed cont PPI DVT - r. post tibial vein on US 04/11/20 was on xarelto plan was to transition to lovenox and coumadin skin erythema likely due to edema, doubt infection will monitor chronic COPD Continue Singulair, nebulizers with duoneb, pulmicort anemia h/o iron def anemia received 2 u prbc tx on 03/03 occult blood: negative monitor hgb Atrial fibrillation Rate control with metoprolol, digoxin anticoag with coumadin
[2020-04-13] MEDS ORDERED: Temazepam 15 MG Cap PO PRN (14:30)
[2020-04-13] MEDS ORDERED: Ondansetron 4 MG Tab.DIS PO PRN (14:30)
[2020-04-13] MEDS ORDERED: Acetaminophen 325 MG Tab PO PRN (14:30)
[2020-04-13] MEDS: Furosemide 20 MG/2 ML VIAL IVPUSH SCH (15:15)
[2020-04-13] MEDS: Budesonide 0.5 MG/2 ML Neb Susp NEB SCH (17:41)
[2020-04-13] MEDS: Albuterol/Ipratropium 3.0-0.5 MG/3 ML Neb Soln NEB SCH ×2 (17:41→21:13)
[2020-04-13] MEDS ORDERED: Enoxaparin 80 MG/0.8 ML Syringe SUBCUT SCH (21:00)
[2020-04-13] MEDS: Acetaminophen/HYDROcodone 325-10 MG Tab PO PRN (21:04)
[2020-04-13] MEDS: Ferrous Sulfate 325 MG Tab PO SCH (21:13)
[2020-04-13] MEDS: Montelukast 10 MG Tab PO SCH (21:13)
[2020-04-13] MEDS: Metoprolol Tartrate 25 MG Tab PO SCH (21:13)
[2020-04-13] MEDS: atorvaSTATin 20 MG Tab PO SCH (21:13)
[2020-04-13] MEDS: Acetaminophen 500 MG Tab PO SCH (21:14)
[2020-04-13] MEDS: Menthol/Methyl Salicylate 85 GM Tube TOP PRN (21:26)
[2020-04-13] MEDS: Enoxaparin 80 MG/0.8 ML Syringe SUBCUT SCH (21:26)
[2020-04-14] MEDS: Pantoprazole 40 MG Tab.CR PO SCH (05:54)
[2020-04-14] MEDS: Acetaminophen/HYDROcodone 325-10 MG Tab PO PRN (05:54)
[2020-04-14] MEDS: Levothyroxine 112 MCG Tab PO SCH (05:54)
[2020-04-14] MEDS: Menthol/Methyl Salicylate 85 GM Tube TOP PRN ×2 (05:57→21:13)
[2020-04-14] MEDS: Budesonide 0.5 MG/2 ML Neb Susp NEB SCH ×2 (07:19→18:08)
[2020-04-14] MEDS: Albuterol/Ipratropium 3.0-0.5 MG/3 ML Neb Soln NEB SCH ×3 (07:20→21:11)
[2020-04-14] MEDS: Digoxin 125 MCG Tab PO SCH (08:50)
[2020-04-14] MEDS: Ferrous Sulfate 325 MG Tab PO SCH ×2 (08:50→21:11)
[2020-04-14] MEDS: Allopurinol 100 MG Tab PO SCH (08:51)
[2020-04-14] MEDS: Metoprolol Tartrate 25 MG Tab PO SCH ×2 (08:51→21:11)
[2020-04-14] MEDS: Acetaminophen 500 MG Tab PO SCH ×2 (08:52→21:11)
[2020-04-14] MEDS: Enoxaparin 80 MG/0.8 ML Syringe SUBCUT SCH (08:53)
[2020-04-14] MEDS: Furosemide 20 MG/2 ML VIAL IVPUSH SCH ×2 (08:54→13:36)
[2020-04-14] MEDS: Polyethylene Glycol 3350 Powder 17 GM Packet PO SCH (08:56)
--- NOTE | 2020-04-14 10:46 | PCM.PN ---
- General Info Date of Service: 04/14/20 Subjective Update: Swelling is better but still moderate to severe. No associated shortness of breath more than usual. No chest pain, no abdominal pain. Functional Status: Reports: Pain Controlled, Tolerating Diet - Review of Systems General: Denies: Fever Pulmonary: Reports: Shortness of Breath. Denies: Hemoptysis (Chronic), Wheezing Gastrointestinal: Denies: Abdominal Pain Genitourinary: Denies: Dysuria Psychiatric: Denies: Confusion - Patient Data Vitals - Most Recent: Last Vital Signs Temp 97.1 F 04/14/20 07:36 Pulse 86 04/14/20 08:51 Resp 20 04/14/20 07:36 BP 124/45 L 04/14/20 08:51 Pulse Ox 99 04/14/20 07:36 Weight - Most Recent: 201 lb I&O - Last 24 Hours: Intake & Output 04/13/20 04/14/20 04/14/20 22:59 06:59 14:59 Intake Total 240 250 360 Output Total 200 550 Balance 40 -300 360 Lab Results Last 24 Hours: Laboratory Results - last 24 hr 04/13/20 04/13/20 04/14/20 Range/Units 14:15 14:15 06:25 WBC 12.1 H (5.0-10.0) 10^3/uL RBC 2.63 L (4.2-5.4) 10^6/uL Hgb 7.2 L (12.0-16.0) g/dL Hct 26.3 L (37.0-47.0) % MCV 100.0 (80-100) fL MCH 27.4 (27.0-34.0) pg MCHC 27.4 L (33.0-35.0) g/dL Plt Count 418 D (150-450) 10^3/uL Neut % (Auto) 73.9 (42.2-75.2) % Lymph % (Auto) 16.1 L (20.5-50.1) % Morrow % (Auto) 9.5 H (2-8) % Eos % (Auto) 0.0 L (1.0-3.0) % Baso % (Auto) 0.5 (0.0-1.0) % Add Manual Diff Yes Neutrophils % (Manual) 77 H (42-75) % Lymphocytes % (Manual) 17 L (20-50) % Monocytes % (Manual) 6 (2-8) % Hypochromasia 2+ moderate Stomatocytes 1+ slight PT 12.0 D (9.0-12.0) SEC INR 1.3 H (0.9-1.2) Sodium (136-145) mmol/L Potassium (3.5-5.1) mmol/L Chloride (98-107) mmol/L Carbon Dioxide (21-32) mmol/L Anion Gap (7-13) mEq/L BUN (7-18) mg/dL Creatinine (0.55-1.02) mg/dL Est Cr Clr Drug Dosing mL/min Estimated GFR (MDRD) Glucose (74-99) mg/dL Calcium (8.5-10.1) mg/dL Blood Type AB NEGATIVE Gel Antibody Screen Negative Crossmatch See Detail 04/14/20 04/14/20 Range/Units 06:25 06:25 WBC (5.0-10.0) 10^3/uL RBC (4.2-5.4) 10^6/uL Hgb (12.0-16.0) g/dL Hct (37.0-47.0) % MCV (80-100) fL MCH (27.0-34.0) pg MCHC (33.0-35.0) g/dL Plt Count (150-450) 10^3/uL Neut % (Auto) (42.2-75.2) % Lymph % (Auto) (20.5-50.1) % Morrow % (Auto) (2-8) % Eos % (Auto) (1.0-3.0) % Baso % (Auto) (0.0-1.0) % Add Manual Diff Neutrophils % (Manual) (42-75) % Lymphocytes % (Manual) (20-50) % Monocytes % (Manual) (2-8) % Hypochromasia Stomatocytes PT 11.2 (9.0-12.0) SEC INR 1.2 (0.9-1.2) Sodium 140 (136-145) mmol/L Potassium 3.0 L (3.5-5.1) mmol/L Chloride 92 L (98-107) mmol/L Carbon Dioxide 47 H* (21-32) mmol/L Anion Gap 4.0 L (7-13) mEq/L BUN 25 H (7-18) mg/dL Creatinine 1.62 H (0.55-1.02) mg/dL Est Cr Clr Drug Dosing 22.43 mL/min Estimated GFR (MDRD) 30 Glucose 119 H (74-99) mg/dL Calcium 8.4 L (8.5-10.1) mg/dL Blood Type Gel Antibody Screen Crossmatch Med Orders - Current: Current Medications Acetaminophen (Tylenol Extra Strength) 500 mg PO BID [facility] Last Admin: 04/14/20 08:52 Dose: 500 mg Acetaminophen (Tylenol) 650 mg PO Q4H PRN PRN Reason: Pain (Mild 1-3)/fever Hydrocodone Bitart/Acetaminophen ([place] 325-10 Mg) 1 tab PO Q6H PRN PRN Reason: Pain, moderate Last Admin: 04/14/20 05:54 Dose: 1 tab Albuterol/Ipratropium (Duoneb 3.0-0.5 Mg/3 Ml) 3 ml NEB TIDRT [facility] Last Admin: 04/14/20 07:20 Dose: 3 ml Allopurinol (Zyloprim) 200 mg PO DAILY [facility] Last Admin: 04/14/20 08:51 Dose: 200 mg Atorvastatin Calcium (Lipitor) 20 mg PO BEDTIME [facility] Last Admin: 04/13/20 21:13 Dose: 20 mg Budesonide (Pulmicort) 0.5 mg NEB BIDRT [facility] Last Admin: 04/14/20 07:19 Dose: 0.5 mg Digoxin (Lanoxin) 125 mcg PO Q48H [facility] Last Admin: 04/14/20 08:50 Dose: 125 mcg Enoxaparin Sodium (Lovenox) 80 mg SUBCUT DAILY [facility] Last Admin: 04/14/20 08:53 Dose: 80 mg Ferrous Sulfate (Ferrous Sulfate) 325 mg PO BID [facility] Last Admin: 04/14/20 08:50 Dose: 325 mg Furosemide (Lasix) 20 mg IVPUSH BIDDIURETIC [facility] Last Admin: 04/14/20 08:54 Dose: 20 mg Levothyroxine Sodium (Levothyroxine) 112 mcg PO ACBREAKFAST [facility] Last Admin: 04/14/20 05:54 Dose: 112 mcg Methyl Salicylate (Icy Hot Cream) 0 gm TOP TID PRN PRN Reason: Pain (mild 1-3) Last Admin: 04/14/20 05:57 Dose: 1 applic Metoprolol Tartrate (Lopressor) 25 mg PO BID [facility] Last Admin: 04/14/20 08:51 Dose: 25 mg Montelukast Sodium (Singulair) 10 mg PO BEDTIME [facility] Last Admin: 04/13/20 21:13 Dose: 10 mg Ondansetron HCl (Zofran Odt) 4 mg PO Q6H PRN PRN Reason: nausea, able to take PO Pantoprazole Sodium (Protonix) 40 mg PO ACBREAKFAST [facility] Last Admin: 04/14/20 05:54 Dose: 40 mg Polyethylene Glycol (Miralax) 17 gm PO DAILY [facility] Last Admin: 04/14/20 08:56 Dose: 17 gm Potassium Chloride (Klor-Con 10) 40 meq PO TIDMEALS [facility] Stop: 04/14/20 17:01 Temazepam (Restoril) 15 mg PO BEDTIME PRN PRN Reason: Sleep Warfarin Sodium (Pharmacy To Dose - Warfarin) 1 dose .XX ASDIRECTED [facility] Warfarin Sodium (Coumadin) 4 mg PO ONETIME ONE Stop: 04/14/20 14:01 Discontinued Medications Enoxaparin Sodium (Lovenox) 80 mg SUBCUT Q12HR [facility] Warfarin Sodium (Coumadin) 3 mg PO ONETIME ONE Stop: 04/13/20 15:31 Last Admin: 04/13/20 17:07 Dose: 3 mg - Exam General: Alert, Oriented Neck: Supple Lungs: Clear to Auscultation, Normal Respiratory Effort Cardiovascular: Regular Rate, Regular Rhythm GI/Abdominal Exam: Normal Bowel Sounds, Soft, Non-Tender Extremities: Pedal Edema (3+ bilateral) Neurological: No New Focal Deficit Psy/Mental Status: Alert, Normal Affect, Normal Mood Sepsis Event Note - Evaluation Sepsis Screening Result: No Definite Risk - Focused Exam Vital Signs: Vital Signs Temp Pulse Pulse Resp BP BP Pulse Ox 04/14/20 08:51 86 124/45 L 04/14/20 08:50 86 04/14/20 07:36 97.1 F 86 20 124/45 L 99 04/14/20 07:20 87 Pulse Ox 04/14/20 08:51 04/14/20 08:50 04/14/20 07:36 04/14/20 07:20 99 Date Exam was Performed: 04/14/20 Time Exam was Performed: 10:43 - Problem List & Annotations (1) DVT (deep venous thrombosis) SNOMED Code(s): 037832199 Code(s): I82.409 - ACUTE EMBOLISM AND THOMBOS UNSP DEEP VN UNSP LOWER EXTREMITY Status: Acute Current Visit: Yes (2) Anemia SNOMED Code(s): 987852604 Code(s): D64.9 - ANEMIA, UNSPECIFIED Status: Acute Current Visit: Yes (3) Atrial fibrillation SNOMED Code(s): 53545401 Code(s): I48.91 - UNSPECIFIED ATRIAL FIBRILLATION Status: Acute Current Visit: No (4) Hypoxia SNOMED Code(s): 051903761 Code(s): R09.02 - HYPOXEMIA Status: Acute Priority: High Current Visit : No Onset Date: 02/20/16 (5) COPD (chronic obstructive pulmonary disease) SNOMED Code(s): 08977744 Code(s): J44.9 - CHRONIC OBSTRUCTIVE PULMONARY DISEASE, UNSPECIFIED Status : Chronic Priority: Medium Current Visit: No Qualifiers: COPD type: chronic bronchitis Chronic bronchitis type: unspecified Qualified Code(s): J42 - Unspecified chronic bronchitis (6) Chronic atrial fibrillation SNOMED Code(s): 280412906 Code(s): I48.2 - CHRONIC ATRIAL FIBRILLATION * DO NOT USE * Status: Chronic Priority: Medium Current Visit: No Onset Date: 02/20/16 - Problem List Review Problem List Initiated/Reviewed/Updated: Yes - My Orders Last 24 Hours: My Active Orders 04/13/20 13:53 Acetaminophen/HYDROcodone [[place] 325-10 MG] 1 tab PO Q6H PRN 04/13/20 14:00 Furosemide [Lasix] 20 mg IVPUSH BIDDIURETIC 04/13/20 14:01 Antiembolic Devices [RC] PER UNIT ROUTINE VASQUEZ Hose [Antiembolic Hose] [OM.PC] Routine 04/13/20 14:15 RED BLOOD CELLS LP [BBK] Routine TYPE AND SCREEN [BBK] Routine WEAK D TEST [BBK] Routine Pharmacy to Dose - Warfarin 1 dose .XX ASDIRECTED 04/13/20 14:30 Patient Status [ADT] Routine Oxygen Therapy [RC] PRN Up With Assistance [RC] ASDIRECTED VTE/DVT Education [RC] PER UNIT ROUTINE Vital Signs [RC] Q4H Acetaminophen [Tylenol] 650 mg PO Q4H PRN Ondansetron [Zofran ODT] 4 mg PO Q6H PRN Temazepam [Restoril] 15 mg PO BEDTIME PRN Resuscitation Status Routine 04/13/20 15:00 Albuterol/Ipratropium [DuoNeb 3.0-0.5 MG/3 ML] 3 ml NEB TIDRT 04/13/20 18:00 Budesonide [Pulmicort] 0.5 mg NEB BIDRT 04/13/20 20:45 Enoxaparin [Lovenox] 80 mg SUBCUT DAILY 04/13/20 21:00 Acetaminophen [Tylenol Extra Strength] 500 mg PO BID Ferrous Sulfate 325 mg PO BID Menthol/Methyl Salicylate [Icy Hot Cream] 0 gm TOP TID PRN Metoprolol Tartrate [Lopressor] 25 mg PO BID Montelukast [Singulair] 10 mg PO BEDTIME atorvaSTATin [Lipitor] 20 mg PO BEDTIME 04/13/20 Dinner 2 Gram Sodium Diet [DIET] 04/14/20 06:00 Levothyroxine 112 mcg PO ACBREAKFAST Pantoprazole [ProTONIX] 40 mg PO ACBREAKFAST 04/14/20 08:00 Digoxin [Lanoxin] 125 mcg PO Q48H 04/14/20 09:00 allopurinoL [Zyloprim] 200 mg PO DAILY polyethylene glycoL 3350 [MiraLAX] 17 gm PO DAILY 04/14/20 12:00 Potassium Chloride [Klor-Con 10] 40 meq PO TIDMEALS 04/14/20 13:59 Transfuse Red Blood Cells [COMM] Routine 04/14/20 14:00 Warfarin [Coumadin] 4 mg PO ONETIME ONE 04/15/20 05:11 INR,PT,PROTHROMBIN TIME [COAG] AM 04/15/20 13:59 Transfuse RBC [Transfuse Red Blood Cells] [COMM] Routine 04/16/20 05:11 INR,PT,PROTHROMBIN TIME [COAG] AM 04/17/20 05:11 INR,PT,PROTHROMBIN TIME [COAG] AM - Plan Plan:: chronic Shortness of breath - worse with activity This is multifactorial, due to chronic CHF component, COPD component, anemia. Chronic hypoxemic, hypercapnic respiratory failure Continue oxygen supplement as needed The patient has been on 2 L nasal cannula oxygen prior to admission Massive LE edema will obtain echo for characterization cont diuretics - transition to IV Lasix use vasquez Stocking follow elytes - replace hypokalemia Anemia h/o iron def anemia received 2 u prbc tx on 03/03 opted for no further endoscopies - cont iron supplement will give 1 unit of prbc tx. today and plan to give another one tomorrow discussed risks, benefits, alternatives with pt cont anticoagulation unless evidence of ongoing gi bleed cont PPI DVT - r. post tibial vein on US 04/11/20 was on xarelto plan was to transition to lovenox and coumadin Follow INR skin erythema likely due to edema, doubt infection will monitor chronic COPD Continue Singulair, nebulizers with duoneb, pulmicort Atrial fibrillation Rate control with metoprolol, digoxin anticoag with coumadin
[2020-04-14] MEDS: Potassium Chloride 10 MEQ Tab.ER PO SCH ×2 (13:35→18:08)
[2020-04-14] MEDS ORDERED: Warfarin 2 MG Tab PO ONE (14:00)
[2020-04-14] MEDS: Montelukast 10 MG Tab PO SCH (21:11)
[2020-04-14] MEDS: atorvaSTATin 20 MG Tab PO SCH (21:11)
[2020-04-15] MEDS: Acetaminophen/HYDROcodone 325-10 MG Tab PO PRN ×2 (01:23→13:11)
[2020-04-15] MEDS: Levothyroxine 112 MCG Tab PO SCH (05:31)
[2020-04-15] MEDS: Pantoprazole 40 MG Tab.CR PO SCH (05:31)
[2020-04-15 07:34] LABS: ANION GAP 7.2 mEq/L (7-13)
[2020-04-15] MEDS: Albuterol/Ipratropium 3.0-0.5 MG/3 ML Neb Soln NEB SCH ×4 (07:47→21:12)
[2020-04-15] MEDS: Budesonide 0.5 MG/2 ML Neb Susp NEB SCH ×2 (07:48→18:01)
[2020-04-15] MEDS: Polyethylene Glycol 3350 Powder 17 GM Packet PO SCH (09:35)
[2020-04-15] MEDS: Acetaminophen 500 MG Tab PO SCH ×2 (09:36→21:12)
[2020-04-15] MEDS: Allopurinol 100 MG Tab PO SCH (09:37)
[2020-04-15] MEDS: Ferrous Sulfate 325 MG Tab PO SCH ×2 (09:38→21:12)
[2020-04-15] MEDS: Metoprolol Tartrate 25 MG Tab PO SCH ×2 (09:39→21:12)
[2020-04-15] MEDS: Enoxaparin 80 MG/0.8 ML Syringe SUBCUT SCH (09:40)
[2020-04-15] MEDS: Furosemide 20 MG/2 ML VIAL IVPUSH SCH ×2 (09:41→17:14)
--- NOTE | 2020-04-15 10:47 | PCM.PN ---
- General Info Date of Service: 04/15/20 Admission Dx/Problem (Free Text): dvt, anemia Subjective Update: Swelling is better but still moderate. More wrinkles appeared. No associated shortness of breath more than usual. No chest pain, no abdominal pain. has chronic shoulder pain. better with muscle rub - Review of Systems General: Denies: Fever, Weakness Pulmonary: Reports: Shortness of Breath (chronic) Cardiovascular: Reports: Edema. Denies: Chest Pain Musculoskeletal: Reports: Shoulder Pain - Patient Data Vitals - Most Recent: Last Vital Signs Temp 97.8 F 04/15/20 08:00 Pulse 71 04/15/20 09:39 Resp 20 04/15/20 08:00 BP 120/40 L 04/15/20 09:39 Pulse Ox 97 04/15/20 08:00 Weight - Most Recent: 200 lb 6 oz I&O - Last 24 Hours: Intake & Output 04/14/20 04/15/20 04/15/20 22:59 06:59 14:59 Intake Total 120 Balance 120 Lab Results Last 24 Hours: Laboratory Results - last 24 hr 04/13/20 04/15/20 04/15/20 Range/Units 14:15 05:45 05:45 WBC 10.6 H (5.0-10.0) 10^3/uL RBC 2.89 L (4.2-5.4) 10^6/uL Hgb 8.3 L (12.0-16.0) g/dL Hct 29.0 L (37.0-47.0) % MCV 100.3 H (80-100) fL MCH 28.7 (27.0-34.0) pg MCHC 28.6 L (33.0-35.0) g/dL Plt Count 356 (150-450) 10^3/uL Neut % (Auto) 71.0 (42.2-75.2) % Lymph % (Auto) 18.3 L (20.5-50.1) % [place] % (Auto) 10.2 H (2-8) % Eos % (Auto) 0.1 L (1.0-3.0) % Baso % (Auto) 0.4 (0.0-1.0) % PT 11.6 (9.0-12.0) SEC INR 1.2 (0.9-1.2) Sodium (136-145) mmol/L Potassium (3.5-5.1) mmol/L Chloride (98-107) mmol/L Carbon Dioxide (21-32) mmol/L Anion Gap (7-13) mEq/L BUN (7-18) mg/dL Creatinine (0.55-1.02) mg/dL Est Cr Clr Drug Dosing mL/min Estimated GFR (MDRD) Glucose (74-99) mg/dL Calcium (8.5-10.1) mg/dL Blood Type AB NEGATIVE Gel Antibody Screen Negative Crossmatch See Detail 04/15/20 Range/Units 05:45 WBC (5.0-10.0) 10^3/uL RBC (4.2-5.4) 10^6/uL Hgb (12.0-16.0) g/dL Hct (37.0-47.0) % MCV (80-100) fL MCH (27.0-34.0) pg MCHC (33.0-35.0) g/dL Plt Count (150-450) 10^3/uL Neut % (Auto) (42.2-75.2) % Lymph % (Auto) (20.5-50.1) % [place] % (Auto) (2-8) % Eos % (Auto) (1.0-3.0) % Baso % (Auto) (0.0-1.0) % PT (9.0-12.0) SEC INR (0.9-1.2) Sodium 139 (136-145) mmol/L Potassium 4.2 (3.5-5.1) mmol/L Chloride 93 L (98-107) mmol/L Carbon Dioxide 43 H* (21-32) mmol/L Anion Gap 7.2 (7-13) mEq/L BUN 24 H (7-18) mg/dL Creatinine 1.81 H (0.55-1.02) mg/dL Est Cr Clr Drug Dosing 20.08 mL/min Estimated GFR (MDRD) 27 Glucose 104 H (74-99) mg/dL Calcium 8.1 L (8.5-10.1) mg/dL Blood Type Gel Antibody Screen Crossmatch Med Orders - Current: Current Medications Acetaminophen (Tylenol Extra Strength) 500 mg PO BID TAMI Last Admin: 04/15/20 09:36 Dose: 500 mg Acetaminophen (Tylenol) 650 mg PO Q4H PRN PRN Reason: Pain (Mild 1-3)/fever Hydrocodone Bitart/Acetaminophen ([place] 325-10 Mg) 1 tab PO Q6H PRN PRN Reason: Pain, moderate Last Admin: 04/15/20 01:23 Dose: 1 tab Albuterol/Ipratropium (Duoneb 3.0-0.5 Mg/3 Ml) 3 ml NEB TIDRT [facility] Last Admin: 04/15/20 07:47 Dose: 3 ml Allopurinol (Zyloprim) 200 mg PO DAILY [facility] Last Admin: 04/15/20 09:37 Dose: 200 mg Atorvastatin Calcium (Lipitor) 20 mg PO BEDTIME [facility] Last Admin: 04/14/20 21:11 Dose: 20 mg Budesonide (Pulmicort) 0.5 mg NEB BIDRT [facility] Last Admin: 04/15/20 07:48 Dose: 0.5 mg Digoxin (Lanoxin) 125 mcg PO Q48H [facility] Last Admin: 04/14/20 08:50 Dose: 125 mcg Enoxaparin Sodium (Lovenox) 80 mg SUBCUT DAILY [facility] Last Admin: 04/15/20 09:40 Dose: 80 mg Ferrous Sulfate (Ferrous Sulfate) 325 mg PO BID [facility] Last Admin: 04/15/20 09:38 Dose: 325 mg Furosemide (Lasix) 20 mg IVPUSH BIDDIURETIC [facility] Last Admin: 04/15/20 09:41 Dose: 20 mg Levothyroxine Sodium (Levothyroxine) 112 mcg PO ACBREAKFAST [facility] Last Admin: 04/15/20 05:31 Dose: 112 mcg Methyl Salicylate (Icy Hot Cream) 0 gm TOP TID PRN PRN Reason: Pain (mild 1-3) Last Admin: 04/14/20 21:13 Dose: 1 applic Metoprolol Tartrate (Lopressor) 25 mg PO BID [facility] Last Admin: 04/15/20 09:39 Dose: 25 mg Montelukast Sodium (Singulair) 10 mg PO BEDTIME [facility] Last Admin: 04/14/20 21:11 Dose: 10 mg Ondansetron HCl (Zofran Odt) 4 mg PO Q6H PRN PRN Reason: nausea, able to take PO Pantoprazole Sodium (Protonix) 40 mg PO ACBREAKFAST [facility] Last Admin: 04/15/20 05:31 Dose: 40 mg Polyethylene Glycol (Miralax) 17 gm PO DAILY [facility] Last Admin: 04/15/20 09:35 Dose: 17 gm Temazepam (Restoril) 15 mg PO BEDTIME PRN PRN Reason: Sleep Warfarin Sodium (Pharmacy To Dose - Warfarin) 1 dose .XX ASDIRECTED [facility] Warfarin Sodium (Coumadin) 4 mg PO ONETIME ONE Stop: 04/15/20 14:01 Discontinued Medications Enoxaparin Sodium (Lovenox) 80 mg SUBCUT Q12HR [facility] Potassium Chloride (Klor-Con 10) 40 meq PO TIDMEALS [facility] Stop: 04/14/20 17:01 Last Admin: 04/14/20 18:08 Dose: 40 meq Warfarin Sodium (Coumadin) 3 mg PO ONETIME ONE Stop: 04/13/20 15:31 Last Admin: 04/13/20 17:07 Dose: 3 mg Warfarin Sodium (Coumadin) 4 mg PO ONETIME ONE Stop: 04/14/20 14:01 Last Admin: 04/14/20 13:35 Dose: 4 mg - Exam General: Alert, Oriented Neck: Supple Lungs: Decreased Breath Sounds, Rhonchi Cardiovascular: Regular Rate, Regular Rhythm GI/Abdominal Exam: Normal Bowel Sounds, Soft, Non-Tender Extremities: Pedal Edema (2-3+) Sepsis Event Note - Evaluation Sepsis Screening Result: No Definite Risk - Focused Exam Vital Signs: Vital Signs Temp Pulse Pulse Resp BP BP Pulse Ox 04/15/20 09:39 71 120/40 L 04/15/20 08:00 97.8 F 71 20 120/40 L 97 04/15/20 07:48 96 Pulse Ox 04/15/20 09:39 04/15/20 08:00 04/15/20 07:48 96 Date Exam was Performed: 04/15/20 Time Exam was Performed: 10:48 - Problem List & Annotations (1) DVT (deep venous thrombosis) SNOMED Code(s): 845034254 Code(s): I82.409 - ACUTE EMBOLISM AND THOMBOS UNSP DEEP VN UNSP LOWER EXTREMITY Status: Acute Current Visit: Yes (2) Anemia SNOMED Code(s): 322741421 Code(s): D64.9 - ANEMIA, UNSPECIFIED Status: Acute Current Visit: Yes (3) Atrial fibrillation SNOMED Code(s): 01056761 Code(s): I48.91 - UNSPECIFIED ATRIAL FIBRILLATION Status: Acute Current Visit: No (4) Hypoxia SNOMED Code(s): 421369975 Code(s): R09.02 - HYPOXEMIA Status: Acute Priority: High Current Visit : No Onset Date: 02/20/16 (5) COPD (chronic obstructive pulmonary disease) SNOMED Code(s): 10981055 Code(s): J44.9 - CHRONIC OBSTRUCTIVE PULMONARY DISEASE, UNSPECIFIED Status : Chronic Priority: Medium Current Visit: No Qualifiers: COPD type: chronic bronchitis Chronic bronchitis type: unspecified Qualified Code(s): J42 - Unspecified chronic bronchitis (6) Chronic atrial fibrillation SNOMED Code(s): 855527932 Code(s): I48.2 - CHRONIC ATRIAL FIBRILLATION * DO NOT USE * Status: Chronic Priority: Medium Current Visit: No Onset Date: 02/20/16 - Problem List Review Problem List Initiated/Reviewed/Updated: Yes - My Orders Last 24 Hours: My Active Orders 04/14/20 13:59 Transfuse Red Blood Cells [COMM] Routine 04/15/20 13:59 Transfuse RBC [Transfuse Red Blood Cells] [COMM] Routine 04/15/20 14:00 Warfarin [Coumadin] 4 mg PO ONETIME ONE 04/16/20 05:11 INR,PT,PROTHROMBIN TIME [COAG] AM 04/16/20 05:15 CBC WITH AUTO DIFF [HEME] AM 04/17/20 05:11 INR,PT,PROTHROMBIN TIME [COAG] AM - Plan Plan:: chronic Shortness of breath - worse with activity This is multifactorial, due to chronic CHF component, COPD component, anemia. Chronic hypoxemic, hypercapnic respiratory failure Continue oxygen supplement as needed The patient has been on 2 L nasal cannula oxygen Massive LE edema echo for characterization is pending cont diuretics - transition to IV Lasix use vasquez Stocking replaced hypokalemia Anemia h/o iron def anemia received 2 u prbc tx on 03/03 opted for no further endoscopies - cont iron supplement give 1 u prbc on 04/14 will give 1 more unit of prbc tx. today cont anticoagulation unless evidence of ongoing gi bleed cont PPI DVT - r. post tibial vein on US 04/11/20 was on xarelto plan was to transition to lovenox and coumadin Follow INR - still subtherapeutic - cont lovenox skin erythema likely due to edema, doubt infection will monitor - improved chronic COPD Continue Singulair, nebulizers with duoneb, pulmicort Atrial fibrillation Rate control with metoprolol, digoxin anticoag with coumadin
[2020-04-15] MEDS ORDERED: Warfarin 2 MG Tab PO ONE (14:00)
[2020-04-15] MEDS ORDERED: LORazepam 0.5 MG Tab PO PRN (17:19)
[2020-04-15] MEDS: atorvaSTATin 20 MG Tab PO SCH (21:12)
[2020-04-15] MEDS: Montelukast 10 MG Tab PO SCH (21:12)
[2020-04-15] MEDS: Menthol/Methyl Salicylate 85 GM Tube TOP PRN (21:13)
[2020-04-16] MEDS: Pantoprazole 40 MG Tab.CR PO SCH (05:39)
[2020-04-16] MEDS: Menthol/Methyl Salicylate 85 GM Tube TOP PRN (05:39)
[2020-04-16] MEDS: Levothyroxine 112 MCG Tab PO SCH (05:39)
[2020-04-16] MEDS: Acetaminophen/HYDROcodone 325-10 MG Tab PO PRN (06:34)
[2020-04-16] MEDS: Albuterol/Ipratropium 3.0-0.5 MG/3 ML Neb Soln NEB SCH (07:32)
[2020-04-16] MEDS: Budesonide 0.5 MG/2 ML Neb Susp NEB SCH (07:32)
[2020-04-16 07:36] VITALS: PULSE 90
[2020-04-16] MEDS: Acetaminophen 500 MG Tab PO SCH (09:16)
[2020-04-16] MEDS: Allopurinol 100 MG Tab PO SCH (09:16)
[2020-04-16] MEDS: Digoxin 125 MCG Tab PO SCH (09:17)
[2020-04-16] MEDS: Metoprolol Tartrate 25 MG Tab PO SCH (09:17)
[2020-04-16] MEDS: Ferrous Sulfate 325 MG Tab PO SCH (09:17)
[2020-04-16] MEDS: Polyethylene Glycol 3350 Powder 17 GM Packet PO SCH (09:18)
[2020-04-16 09:20] VITALS: BP 112/49
[2020-04-16] MEDS: Enoxaparin 80 MG/0.8 ML Syringe SUBCUT SCH (09:20)
[2020-04-16] MEDS: Furosemide 20 MG/2 ML VIAL IVPUSH SCH (09:59)
--- NOTE | 2020-04-16 10:27 | PCM.DCSUM1 ---
Discharge Summary - Hospital Course Free Text/Narrative:: found to have acute dvt while on xarelto, edema and anemia chronic Shortness of breath - worse with activity This is multifactorial, due to chronic CHF component, COPD component, anemia. Chronic hypoxemic, hypercapnic respiratory failure Continue oxygen supplement as needed The patient has been on 2 L nasal cannula oxygen [place] LE edema echo for characterization is pending cont diuretics - whil ehospitalized received IV Lasix use vasquez Stocking follow elytes in a few days Anemia h/o iron def anemia received 2 u prbc tx on 03/03 opted for no further endoscopies - cont iron supplement given 2u prbc on 04/14 and 04/15 cont anticoagulation unless evidence of ongoing gi bleed cont PPI DVT - r. post tibial vein on US 04/11/20 was on xarelto plan was to transition to lovenox and coumadin Follow INR - still subtherapeutic - cont lovenox recheck inr in 2-3 days skin erythema on LEs likely due to edema, doubt infection monitor - improved chronic COPD Continue Singulair, nebulizers with duoneb, pulmicort Atrial fibrillation Rate control with metoprolol, digoxin anticoag with coumadin Diagnosis: Stroke: No - Discharge Data Discharge Date: 04/16/20 Discharge Disposition: DC/Tfer to SNF 03 Condition: Good - Referral to Home Health Primary Care Physician: Zack Dunaway MD - Discharge Diagnosis/Problem(s) (1) DVT (deep venous thrombosis) SNOMED Code(s): 702829499 ICD Code: I82.409 - ACUTE EMBOLISM AND THOMBOS UNSP DEEP VN UNSP LOWER EXTREMITY Status: Acute Current Visit: Yes (2) Anemia SNOMED Code(s): 660076569 ICD Code: D64.9 - ANEMIA, UNSPECIFIED Status: Acute Current Visit: Yes (3) Atrial fibrillation SNOMED Code(s): 16383341 ICD Code: I48.91 - UNSPECIFIED ATRIAL FIBRILLATION Status: Acute Current Visit: No (4) Hypoxia SNOMED Code(s): 048524370 ICD Code: R09.02 - HYPOXEMIA Status: Acute Priority: High Current Visit : No Onset Date: 02/20/16 (5) COPD (chronic obstructive pulmonary disease) SNOMED Code(s): 41741267 ICD Code: J44.9 - CHRONIC OBSTRUCTIVE PULMONARY DISEASE, UNSPECIFIED Status : Chronic Priority: Medium Current Visit: No Qualifiers: COPD type: chronic bronchitis Chronic bronchitis type: unspecified Qualified Code(s): J42 - Unspecified chronic bronchitis (6) Chronic atrial fibrillation SNOMED Code(s): 034930807 ICD Code: I48.2 - CHRONIC ATRIAL FIBRILLATION * DO NOT USE * Status: Chronic Priority: Medium Current Visit: No Onset Date: 02/20/16 - Patient Instructions Diet: Heart Healthy Diet Activity: As Tolerated - Discharge Plan *PRESCRIPTION DRUG MONITORING PROGRAM REVIEWED*: Not Applicable *COPY OF PRESCRIPTION DRUG MONITORING REPORT IN PATIENT TONO: Not Applicable Prescriptions/Med Rec: Enoxaparin [Lovenox] 80 mg SUBCUT DAILY #5 syringe metOLazone [Metolazone] 2.5 mg PO DAILY #14 tablet Warfarin Sodium [Coumadin] 5 mg PO DAILY #30 tablet Home Medications: Home Meds atorvaSTATin [Lipitor] 20 mg PO BEDTIME 06/21/15 [History] Digoxin [Lanoxin] 125 mcg PO Q48H 01/01/16 [History] Ipratropium/Albuterol Sulfate [Combivent Respimat 20-100 Mcg] 1 puff IH QID PRN 01/01/16 [History] Budesonide [Pulmicort] 2 ml NEB BID 02/20/16 [History] Montelukast [Singulair] 10 mg PO BEDTIME 05/20/16 [History] Albuterol/Ipratropium [DuoNeb 3.0-0.5 MG/3 ML] 3 ml NEB ASDIRECTED 08/05/16 [ History] Acetaminophen [Tylenol Extra Strength] 500 mg PO BID 01/18/20 [History] Cholecalciferol (Vitamin D3) [Vitamin D3] 1,000 unit PO DAILY 01/18/20 [History] Diclofenac Sodium [Voltaren 1% Gel] 1 dose TOP ASDIRECTED PRN 01/18/20 [History] Docusate Sodium [Colace] 100 mg PO BID 01/18/20 [History] L. Acidophilus/L.bulgaricus [Floranex Tablet] 1 tab PO DAILY 01/18/20 [History] Levothyroxine 112 mcg PO DAILY 01/18/20 [History] Metoprolol Tartrate 25 mg PO BID 01/18/20 [History] Torsemide [Demadex] 80 mg PO DAILY 01/18/20 [History] allopurinoL [Zyloprim] 200 mg PO DAILY 01/18/20 [History] polyethylene glycoL 3350 [Miralax] 17 gm PO DAILY 01/18/20 [History] Acetaminophen 500 mg PO Q6H PRN 02/29/20 [History] Cyanocobalamin (Vitamin B-12) [B-12 Compliance] 1,000 mcg IJ ASDIRECTED [History] Ferrous Sulfate [Iron] 325 mg PO TID 02/29/20 [History] Hydrocodone/Acetaminophen [Hydrocodone-Acetamin 10-325 mg] 10 - 325 mg PO Q6H PRN 02/29/20 [History] Magnesium Hydroxide [Milk of Magnesia] 30 ml PO DAILY PRN 02/29/20 [History] Menthol [Icy Hot] 118 ml TP BID PRN 02/29/20 [History] Nystatin 1 each TOP BID PRN 02/29/20 [History] Triamcinolone Acetonide [Triamcinolone Acetonide 0.1% Crm] 1 applic TOP Q8H PRN 02/29/20 [History] Trolamine Salicylate/Aloe Vera [Aspercreme 10%] 85 gm TOP BID PRN 02/29/20 [ History] bisacodyL [Dulcolax] 10 mg RC DAILY PRN 02/29/20 [History] guaiFENesin [Robitussin] 200 mg PO Q4H PRN 02/29/20 [History] Omeprazole 20 mg PO DAILY 04/13/20 [History] Enoxaparin [Lovenox] 80 mg SUBCUT DAILY #5 syringe 04/16/20 [Rx] Warfarin Sodium [Coumadin] 5 mg PO DAILY #30 tablet 04/16/20 [Rx] metOLazone [Metolazone] 2.5 mg PO DAILY #14 tablet 04/16/20 [Rx] Patient Handouts: Enoxaparin injection, Metolazone tablets - Discharge Summary/Plan Comment DC Time >30 min.: No - General Info Date of Service: 04/16/20 Functional Status: Reports: Pain Controlled, Tolerating Diet - Review of Systems General: Denies: Fever Pulmonary: Reports: Shortness of Breath (chronic) Cardiovascular: Reports: Edema Gastrointestinal: Denies: Abdominal Pain Genitourinary: Denies: Dysuria Neurological: Denies: Confusion - Patient Data Vitals - Most Recent: Last Vital Signs Temp 98.1 F 04/16/20 08:00 Pulse 90 04/16/20 09:17 Resp 18 04/16/20 08:00 BP 112/49 L 04/16/20 09:17 Pulse Ox 94 L 04/16/20 08:00 Weight - Most Recent: 198 lb 2 oz I&O - Last 24 hours: Intake & Output 04/15/20 04/16/20 04/16/20 22:59 06:59 14:59 Intake Total 962 360 Output Total 1000 Balance -38 360 Lab Results - Last 24 hrs: Laboratory Results - last 24 hr 04/13/20 04/16/20 04/16/20 Range/Units 14:15 05:15 05:15 WBC 10.6 H (5.0-10.0) 10^3/uL RBC 3.26 L (4.2-5.4) 10^6/uL Hgb 9.3 L (12.0-16.0) g/dL Hct 31.8 L (37.0-47.0) % MCV 97.5 (80-100) fL MCH 28.5 (27.0-34.0) pg MCHC 29.2 L (33.0-35.0) g/dL Plt Count 309 (150-450) 10^3/uL Neut % (Auto) 75.1 (42.2-75.2) % Lymph % (Auto) 13.9 L (20.5-50.1) % [place] % (Auto) 10.5 H (2-8) % Eos % (Auto) 0.1 L (1.0-3.0) % Baso % (Auto) 0.4 (0.0-1.0) % PT 13.6 H (9.0-12.0) SEC INR 1.4 H (0.9-1.2) Blood Type AB NEGATIVE Gel Antibody Screen Negative Crossmatch See Detail Med Orders - Current: Current Medications Acetaminophen (Tylenol Extra Strength) 500 mg PO BID TAMI Last Admin: 04/16/20 09:16 Dose: 500 mg Acetaminophen (Tylenol) 650 mg PO Q4H PRN PRN Reason: Pain (Mild 1-3)/fever Hydrocodone Bitart/Acetaminophen ([place] 325-10 Mg) 1 tab PO Q6H PRN PRN Reason: Pain, moderate Last Admin: 04/16/20 06:34 Dose: 1 tab Albuterol/Ipratropium (Duoneb 3.0-0.5 Mg/3 Ml) 3 ml NEB TIDRT [facility] Last Admin: 04/16/20 07:32 Dose: 3 ml Allopurinol (Zyloprim) 200 mg PO DAILY [facility] Last Admin: 04/16/20 09:16 Dose: 200 mg Atorvastatin Calcium (Lipitor) 20 mg PO BEDTIME [facility] Last Admin: 04/15/20 21:12 Dose: 20 mg Budesonide (Pulmicort) 0.5 mg NEB BIDRT [facility] Last Admin: 04/16/20 07:32 Dose: 0.5 mg Digoxin (Lanoxin) 125 mcg PO Q48H [facility] Last Admin: 04/16/20 09:17 Dose: 125 mcg Enoxaparin Sodium (Lovenox) 80 mg SUBCUT DAILY [facility] Last Admin: 04/16/20 09:20 Dose: 80 mg Ferrous Sulfate (Ferrous Sulfate) 325 mg PO BID [facility] Last Admin: 04/16/20 09:17 Dose: 325 mg Furosemide (Lasix) 20 mg IVPUSH BIDDIURETIC [facility] Last Admin: 04/16/20 09:59 Dose: Not Given Levothyroxine Sodium (Levothyroxine) 112 mcg PO ACBREAKFAST [facility] Last Admin: 04/16/20 05:39 Dose: 112 mcg Lorazepam (Ativan) 0.5 mg PO Q6H PRN PRN Reason: Anxiety Last Admin: 04/15/20 18:01 Dose: 0.5 mg Methyl Salicylate (Icy Hot Cream) 0 gm TOP TID PRN PRN Reason: Pain (mild 1-3) Last Admin: 04/16/20 05:39 Dose: 1 applic Metoprolol Tartrate (Lopressor) 25 mg PO BID [facility] Last Admin: 04/16/20 09:17 Dose: 25 mg Montelukast Sodium (Singulair) 10 mg PO BEDTIME [facility] Last Admin: 04/15/20 21:12 Dose: 10 mg Ondansetron HCl (Zofran Odt) 4 mg PO Q6H PRN PRN Reason: nausea, able to take PO Pantoprazole Sodium (Protonix) 40 mg PO ACBREAKFAST [facility] Last Admin: 04/16/20 05:39 Dose: 40 mg Polyethylene Glycol (Miralax) 17 gm PO DAILY [facility] Last Admin: 04/16/20 09:18 Dose: 17 gm Temazepam (Restoril) 15 mg PO BEDTIME PRN PRN Reason: Sleep Warfarin Sodium (Pharmacy To Dose - Warfarin) 1 dose .XX ASDIRECTED [facility] Warfarin Sodium (Coumadin) 4 mg PO ONETIME ONE Stop: 04/16/20 14:01 Discontinued Medications Enoxaparin Sodium (Lovenox) 80 mg SUBCUT Q12HR [facility] Potassium Chloride (Klor-Con 10) 40 meq PO TIDMEALS [facility] Stop: 04/14/20 17:01 Last Admin: 04/14/20 18:08 Dose: 40 meq Warfarin Sodium (Coumadin) 3 mg PO ONETIME ONE Stop: 04/13/20 15:31 Last Admin: 04/13/20 17:07 Dose: 3 mg Warfarin Sodium (Coumadin) 4 mg PO ONETIME ONE Stop: 04/14/20 14:01 Last Admin: 04/14/20 13:35 Dose: 4 mg Warfarin Sodium (Coumadin) 4 mg PO ONETIME ONE Stop: 04/15/20 14:01 Last Admin: 04/15/20 13:13 Dose: 4 mg - Exam General: Reports: Alert, Oriented Neck: Reports: Supple Lungs: Reports: Rhonchi Cardiovascular: Reports: Irregular Rhythm GI/Abdominal Exam: Normal Bowel Sounds, Soft, Non-Tender Extremities: Pedal Edema (b/l ) Skin: Reports: Warm, Dry Neurological: Reports: No New Focal Deficit Psy/Mental Status: Reports: Alert, Normal Affect, Normal Mood
[2020-04-16] MEDS ORDERED: Warfarin 2 MG Tab PO ONE (14:00)
== END 2020-04-16 11:00 | DRG 812 ==
LOC: DL.MS 12:46 → OBSVTOIN 14:30
PROVIDERS: ADMIT Internal Medicine; ATTEND Internal Medicine
PROC: 30233N1 Transfusion of Nonautologous Red Blood Cells into Peripheral Vein, Percutaneous Approach (ICD-10-PCS; principal; 2020-04-13)
DX: D50.9 Iron deficiency anemia, unspecified (principal); I82.441 Acute embolism and thrombosis of right tibial vein; J96.11 Chronic respiratory failure with hypoxia; J96.12 Chronic respiratory failure with hypercapnia; I48.20 Chronic atrial fibrillation, unspecified; J44.9 Chronic obstructive pulmonary disease, unspecified; I50.9 Heart failure, unspecified; Z99.81 Dependence on supplemental oxygen; L53.9 Erythematous condition, unspecified; H54.7 Unspecified visual loss; I25.10 Atherosclerotic heart disease of native coronary artery without angina pectoris; E78.00 Pure hypercholesterolemia, unspecified; G47.30 Sleep apnea, unspecified; R32 Unspecified urinary incontinence; G89.29 Other chronic pain; M54.2 Cervicalgia; M19.90 Unspecified osteoarthritis, unspecified site; E11.9 Type 2 diabetes mellitus without complications; E03.9 Hypothyroidism, unspecified; E66.9 Obesity, unspecified; Z98.49 Cataract extraction status, unspecified eye; Z90.710 Acquired absence of both cervix and uterus; Z90.49 Acquired absence of other specified parts of digestive tract; Z79.01 Long term (current) use of anticoagulants; Z79.890 Hormone replacement therapy; Z79.899 Other long term (current) drug therapy; Z88.1 Allergy status to other antibiotic agents; Z88.8 Allergy status to other drugs, medicaments and biological substances; Z90.89 Acquired absence of other organs; Z96.659 Presence of unspecified artificial knee joint; Z20.828 Contact with and (suspected) exposure to other viral communicable diseases
CPT/HCPCS: 36415; 36430; 80048; 85025; 85610; 86850; 86900; 86901; 86920; 86922; 93306; 94640; A9270-GY; J1650; J1940; J7620-GY; P9016; U0002

== ENCOUNTER 2020-10-18 17:04 | Inpatient (IN) | payer MEDICARE, BC, MEDICAID ==
[2020-10-18] MEDS ORDERED: 50% Dextrose in Water 50 ML Syringe IV PRN (17:26)
[2020-10-18] MEDS ORDERED: Acetaminophen 325 MG Tab PO PRN (17:26)
[2020-10-18] MEDS ORDERED: Ondansetron 4 MG Tab.DIS PO PRN (17:26)
[2020-10-18] MEDS ORDERED: Ondansetron 4 MG/2 ML SDV IVPUSH PRN (17:26)
[2020-10-18] MEDS ORDERED: Glucagon,Human Recombinant 1 MG Vial IM PRN ×2 (17:26)
[2020-10-18] MEDS ORDERED: 50% Dextrose in Water 50 ML Syringe IVPUSH PRN (17:26)
--- NOTE | 2020-10-18 18:16 | PCM.HP ---
H&P History of Present Illness - General Date of Service: 10/18/20 Admit Problem/Dx: Admission Diagnosis/Problem Admission Diagnosis/Problem Metabolic encephalopathy Source of Information: Patient, Old Records, Provider - History of Present Illness Initial Comments - Free Text/Narative: Ms. Baldwin is an 84-year-old female with medical history significant for hypertension, type 2 diabetes, chronic diastolic heart failure, atrial fibrillation on chronic anticoagulation with warfarin, hypothyroidism, COPD, SUSU on CPAP, dyslipidemia, and prior history of tobacco use who is directly admitted from the alf for concern for UTI and uremic encephalopathy. According to referring provider, patient was noted to be encephalopathic. UA was obtained which was cloudy and showed large leukocytes and greater than 100 WBCs per high- power field with many bacteria. CHEM panel showed BUN of 154, increased from 32; creatinine of 2.4, increased from 1.6 on 08/20/2020. WBC count was 24.85 wit h 87.8% neutrophils and 21.82 absolute neutrophil count. Her systolic blood pressure was 108/62 with heart rate of 60 and saturating 99% on room air. Patient was referred for admission for further management. Referring provider indicates that he discussed with patient's family about probability of uremic encephalopathy which may require assessment and management by service member. States that family declined transfer to higher level of care and would like patient to be managed locally. Patient reports that she does not feel good. Denies any fevers no chills, nausea, vomiting, diarrhea, constipation, dysuria, hematuria, edema, or any new symptoms. - Related Data Allergies/Adverse Reactions: Allergies Allergy/AdvReac Type Severity Reaction Status Date / Time levofloxacin [From Levaquin] Allergy Mild Itching Verified 10/18/20 17:46 metformin Allergy Mild Diarrhea Verified 10/18/20 17:46 penicillin Allergy Mild Edema Verified 10/18/20 17:46 Sulfa (Sulfonamide Allergy Mild Cannot Verified 10/18/20 17:46 Antibiotics) Remember Home Medications: Home Meds atorvaSTATin [Lipitor] 20 mg PO BEDTIME 06/21/15 [History] Digoxin [Lanoxin] 125 mcg PO Q48H 01/01/16 [History] Ipratropium/Albuterol Sulfate [Combivent Respimat 20-100 Mcg] 1 puff IH QID PRN 01/01/16 [History] Budesonide [Pulmicort] 2 ml NEB BID 04/06/16 [History] Montelukast [Singulair] 10 mg PO BEDTIME 05/20/16 [History] Albuterol/Ipratropium [DuoNeb 3.0-0.5 MG/3 ML] 3 ml NEB ASDIRECTED 08/05/16 [History] Acetaminophen [Tylenol Extra Strength] 500 mg PO BID 01/18/20 [History] Cholecalciferol (Vitamin D3) [Vitamin D3] 1,000 unit PO DAILY 01/18/20 [History] Diclofenac Sodium [Voltaren 1% Gel] 1 dose TOP ASDIRECTED PRN 01/18/20 [History] Docusate Sodium [Colace] 100 mg PO BID 01/18/20 [History] L. Acidophilus/L.bulgaricus [Floranex Tablet] 1 tab PO DAILY 01/18/20 [History] Levothyroxine 112 mcg PO DAILY 01/18/20 [History] Metoprolol Tartrate 25 mg PO BID 01/18/20 [History] Torsemide [Demadex] 80 mg PO DAILY 01/18/20 [History] allopurinoL [Zyloprim] 200 mg PO DAILY 01/18/20 [History] polyethylene glycoL 3350 [Miralax] 17 gm PO DAILY 01/18/20 [History] Acetaminophen 500 mg PO Q6H PRN 02/29/20 [History] Cyanocobalamin (Vitamin B-12) [B-12 Compliance] 1,000 mcg IJ ASDIRECTED 02/29/20 [History] Ferrous Sulfate [Iron] 325 mg PO TID 02/29/20 [History] Hydrocodone/Acetaminophen [Hydrocodone-Acetamin 10-325 mg] 10 - 325 mg PO Q6H PRN 02/29/20 [History] Magnesium Hydroxide [Milk of Magnesia] 30 ml PO DAILY PRN 02/29/20 [History] Menthol [Icy Hot] 118 ml TP BID PRN 02/29/20 [History] Nystatin 1 each TOP BID PRN 02/29/20 [History] Triamcinolone Acetonide [Triamcinolone Acetonide 0.1% Crm] 1 applic TOP Q8H PRN 02/29/20 [History] Trolamine Salicylate/Aloe Vera [Aspercreme 10%] 85 gm TOP BID PRN 02/29/20 [History] bisacodyL [Dulcolax] 10 mg RC DAILY PRN 02/29/20 [History] guaiFENesin [Robitussin] 200 mg PO Q4H PRN 02/29/20 [History] Omeprazole 20 mg PO DAILY 04/13/20 [History] Enoxaparin [Lovenox] 80 mg SUBCUT DAILY #5 syringe 04/16/20 [Rx] Warfarin Sodium [Coumadin] 5 mg PO DAILY #30 tablet 04/16/20 [Rx] metOLazone [Metolazone] 2.5 mg PO DAILY #14 tablet 04/16/20 [Rx] Past Medical History HEENT History: Reports: Impaired Vision Cardiovascular History: Reports: Afib, CAD, Heart Failure, High Cholesterol, Hypertension, Pulmonary Hypertension, SOB on Exertion Other Cardiovascular History: unsure if she has had an irregular heart beat in the past, a.fib with rapid ventricular response. Respiratory History: Reports: COPD, Sleep Apnea, SOB Other Respiratory History: CPAP machine at home, slightly broken Gastrointestinal History: Reports: Chronic Constipation Genitourinary History: Reports: Acute Renal Failure, Urinary Incontinence [employer] History: Reports: Other OB/BYN History: miscarriage, blocked tubes bilat Musculoskeletal History: Reports: Neck Pain, Chronic, Osteoarthritis Neurological History: Reports: None Psychiatric History: Reports: Emotional Problems Endocrine/Metabolic History: Reports: Diabetes, Type II, Hypothyroidism, Obesity/BMI 30+ Other Endocrine/Metabolic History: hyponatremia Hematologic History: Reports: Anemia, Anticoagulation Therapy Immunologic History: Reports: None Oncologic (Cancer) History: Reports: None Dermatologic History: Reports: Other (See Below) Other Dermatologic History: spot removed on nose a long time ago - Infectious Disease History Infectious Disease History: Reports: Chicken Pox, Measles, Mumps, Shingles - Past Surgical History Head Surgeries/Procedures: Reports: None HEENT Surgical History: Reports: Cataract Surgery, Tonsillectomy Other HEENT Surgeries/Procedures: bilat cataract surgery Cardiovascular Surgical History: Reports: None Respiratory Surgical History: Reports: None GI Surgical History: Reports: Appendectomy Female Surgical History: Reports: Hysterectomy Musculoskeletal Surgical History: Reports: Joint Replacement, Knee Replacement Other Musculoskeletal Surgeries/Procedures:: Right knee, back surgery. Social & Family History - Family History Family Medical History: No Pertinent Family History - Tobacco Use Tobacco Use Status *Q: Unknown Ever Used Tobacco - Caffeine Use Caffeine Use: Reports: Coffee, Tea Caffeine Use Comment: 2 cups daily - Recreational Drug Use Recreational Drug Use: No - Living Situation & Occupation Living situation: Reports: , Alone, Other Occupation: Retired H&P Review of Systems - Review of Systems: Review Of Systems: Comprehensive ROS is negative, except as noted in HPI. Exam - Exam Exam: See Below - Vital Signs Vital Signs: Last Vital Signs Temp 97.3 F 10/18/20 17:27 Pulse 70 10/18/20 17:27 Resp 16 10/18/20 17:27 BP 109/50 L 10/18/20 17:27 Pulse Ox 97 10/18/20 17:27 Weight: 168 lb - Exam General: Alert, Lethargic HEENT: Conjunctiva Clear, Hearing Intact, PERRLA Neck: Supple, Trachea Midline Lungs: Clear to Auscultation (However, shallow breaths. ) GI/Abdominal Exam: Normal Bowel Sounds, Soft, Non-Tender, No Distention Extremities: Normal Inspection, Non-Tender, No Pedal Edema Peripheral Pulses: 2+: Radial (L), Radial (R), Dorsalis Pedis (L), Dorsalis Pedis (R) Skin: Warm, Dry, Intact, Cool Neuro Extensive - Mental Status: Alert, Oriented x3 Psychiatric: Alert, Normal Affect, Normal Mood - Problem List (1) Acute kidney injury superimposed on CKD SNOMED Code(s): 75890686 ICD Code: N17.9 - ACUTE KIDNEY FAILURE, UNSPECIFIED; N18.9 - CHRONIC KIDNEY DISEASE, UNSPECIFIED Status: Acute Current Visit: Yes (2) Uremic encephalopathy SNOMED Code(s): 55118276 ICD Code: G93.49 - OTHER ENCEPHALOPATHY; N19 - UNSPECIFIED KIDNEY FAILURE Status: Acute Current Visit: Yes (3) UTI (urinary tract infection) SNOMED Code(s): 37439683 ICD Code: N39.0 - URINARY TRACT INFECTION, SITE NOT SPECIFIED Status: Acute Current Visit: Yes (4) Atrial fibrillation SNOMED Code(s): 63985486 ICD Code: I48.91 - UNSPECIFIED ATRIAL FIBRILLATION Status: Acute Current Visit: No (5) CHF (congestive heart failure) SNOMED Code(s): 92450196 ICD Code: I50.9 - HEART FAILURE, UNSPECIFIED Status: Acute Current Visit: No (6) Urinary tract infection SNOMED Code(s): 00188845 ICD Code: N39.0 - URINARY TRACT INFECTION, SITE NOT SPECIFIED Status: Acute Current Visit: No Qualifiers: Urinary tract infection type: acute cystitis Hematuria presence: with hematuria Qualified Code(s): N30.01 - Acute cystitis with hematuria (7) COPD (chronic obstructive pulmonary disease) SNOMED Code(s): 77079407 ICD Code: J44.9 - CHRONIC OBSTRUCTIVE PULMONARY DISEASE, UNSPECIFIED Status: Chronic Priority: Medium Current Visit: No Qualifiers: COPD type: chronic bronchitis Chronic bronchitis type: unspecified Qualified Code(s): J42 - Unspecified chronic bronchitis (8) Chronic atrial fibrillation SNOMED Code(s): 146219473 ICD Code: I48.2 - CHRONIC ATRIAL FIBRILLATION * DO NOT USE * Status: Chronic Priority: Medium Current Visit: No Onset Date: 02/20/16 (9) HTN (hypertension) SNOMED Code(s): 15983160 ICD Code: I10 - ESSENTIAL (PRIMARY) HYPERTENSION Status: Chronic Priority: Medium Current Visit: No Qualifiers: Hypertension type: essential hypertension Qualified Code(s): I10 - Essential (primary) hypertension (10) Type 2 diabetes mellitus SNOMED Code(s): 75586017 ICD Code: E11.9 - TYPE 2 DIABETES MELLITUS WITHOUT COMPLICATIONS Status: Chronic Priority: Medium Current Visit: No Qualifiers: Diabetes mellitus intermediate insulin use: with intermediate use Diabetes mellitus complication status: with unspecified complications Problem List Initiated/Reviewed/Updated: Yes Orders Last 24hrs: Active Orders 24 hr Category Date Time Status Patient Status [ADT] Routine ADT 10/18/20 17:27 Active Blood Glucose Check, Bedside [RC] QIDACANDBED Care 10/18/20 17:26 Active Cardiac Monitoring [RC] CONTINUOUS Care 10/18/20 17:30 Active Diabetes Education [RC] Click to Edit Care 10/18/20 17:27 Active Height and Weight [RC] UPON Care 10/18/20 17:26 Active Intake and Output [RC] QSHIFT Care 10/18/20 17:30 Active Notify Provider [RC] PRN Care 10/18/20 17:27 Active Oxygen Therapy [RC] PRN Care 10/18/20 17:27 Active Up With Assistance [RC] ASDIRECTED Care 10/18/20 17:26 Active VTE/DVT Education [RC] PER UNIT ROUTINE Care 10/18/20 17:27 Active Vital Signs [RC] Q4H Care 10/18/20 17:27 Active Consistent Carbohydrate Diet [DIET] Diet 10/18/20 Dinner Active BASIC METABOLIC PANEL,BMP [CHEM] AM Lab 10/19/20 05:11 Ordered CBC W/O DIFF,HEMOGRAM [HEME] AM Lab 10/19/20 05:11 Ordered CULTURE BLOOD [BC] Stat Lab 10/18/20 17:26 Ordered MAGNESIUM [CHEM] AM Lab 10/19/20 05:11 Ordered PHOSPHORUS [CHEM] AM Lab 10/19/20 05:11 Ordered Acetaminophen [TylenoL] Med 10/18/20 17:26 Active 650 mg PO Q4H PRN Dextrose 50% in Water Med 10/18/20 17:26 Active 25 ml IVPUSH ASDIRECTED PRN Dextrose 50% in Water Med 10/18/20 17:26 Active 50 ml IV ASDIRECTED PRN Docusate Sodium/Sennosides [Senna Plus] Med 10/18/20 17:26 Active 1 tab PO BEDTIME PRN Glucagon,Human Recombinant [GlucaGen] Med 10/18/20 17:26 Active 1 mg IM ASDIRECTED PRN Glucagon,Human Recombinant [GlucaGen] Med 10/18/20 17:26 Active 1 mg IM ONETIME PRN Insulin Lispro [HumaLOG] Med 10/18/20 18:00 Active See Protocol SUBCUT WITHMEALSANDBED Ondansetron [Zofran ODT] Med 10/18/20 17:26 Active 4 mg PO Q6H PRN Ondansetron [Zofran] Med 10/18/20 17:26 Active 4 mg IVPUSH Q6H PRN Sodium Chloride 0.9% [Normal Saline] 1,000 ml Med 10/18/20 17:30 Active IV ASDIRECTED Resuscitation Status Routine Resus Stat 10/18/20 17:26 Ordered Medication Orders Acetaminophen (Tylenol) 650 mg PO Q4H PRN PRN Reason: Pain (Mild 1-3)/fever Dextrose/Water (Dextrose 50% In Water) 50 ml IV ASDIRECTED PRN PRN Reason: Hypoglycemia Dextrose/Water (Dextrose 50% In Water) 25 ml IVPUSH ASDIRECTED PRN PRN Reason: Hypoglycemia Glucagon (Glucagen) 1 mg IM ASDIRECTED PRN PRN Reason: Hypoglycemia Glucagon (Glucagen) 1 mg IM ONETIME PRN PRN Reason: Hypoglycemia Sodium Chloride (Normal Saline) 1,000 mls @ 100 mls/hr IV ASDIRECTED TAMI Insulin Human Lispro (Humalog) 0 unit SUBCUT WITHMEALSANDBED TAMI; Protocol Ondansetron HCl (Zofran Odt) 4 mg PO Q6H PRN PRN Reason: nausea, able to take PO Ondansetron HCl (Zofran) 4 mg IVPUSH Q6H PRN PRN Reason: Nausea/Vomiting Senna/Docusate Sodium (Senna Plus) 1 tab PO BEDTIME PRN PRN Reason: Constipation Assessment/Plan Comment:: #Uremic encephalopathy: Patient sent from the ED for admission due to altered mental status. Patient with BUN of 159, increased from 32 on 08/20/2020. In the context of UTI. Telemetry Gentle fluid restriction due to history of CHF Starr catheter placement for accurate I's and O's Urine culture Start on Rocephin Renal ultrasound Avoid nephrotoxins Renal dosing of medications Obtain blood cultures due to significant leukocytosis with left shift Fall precautions #UTI: Obtain urine cultures Start on Rocephin #Diabetes mellitus Start on sliding scale insulin hypoglycemia protocol #Chronic diastolic heart failure Does not appear to be in fluid overload Gentle fluid resuscitation Strict I's and O's #Chronic A. fib #Chronic anticoagulation with warfarin Continue home meds Warfarin, pharmacy to dose DVT prophylaxis: On warfarin GI prophylaxis: Diabetic diet CODE STATUS: DNR/DNI per referring provider.
[2020-10-18] MEDS ORDERED: cefTRIAXone 1 GM in Sodium Chloride 0.9% 50 ML IV SCH (18:30)
[2020-10-18] MEDS: Sodium Chloride 0.9% 1,000 ML IV SCH (18:41)
[2020-10-18] MEDS: Insulin Lispro 100 Units/ML 3 ML Vial SUBCUT SCH ×2 (19:37→21:20)
[2020-10-18 21:25] LABS: ANION GAP 8.2 mEq/L (7-13)
[2020-10-18] MEDS ORDERED: Meropenem Premix 1 GM in Premix Bag 1 BAG IV ONE (22:00)
[2020-10-19] MEDS: Sodium Chloride 0.9% 1,000 ML IV SCH (06:49)
[2020-10-19 06:55] LABS: ANION GAP 8.7 mEq/L (7-13)
[2020-10-19] MEDS: Insulin Lispro 100 Units/ML 3 ML Vial SUBCUT SCH ×2 (07:59→13:03)
[2020-10-19] MEDS ORDERED: Meropenem Premix 500 MG in Premix Bag 1 BAG IV SCH (09:00)
[2020-10-19] MEDS: Potassium Chloride 10 MEQ Tab.ER PO SCH ×2 (09:38→13:05)
[2020-10-19] MEDS ORDERED: Triamcinolone Acetonide 0.1% Crm 15 GM Tube TOP PRN (10:32)
[2020-10-19] MEDS ORDERED: Acetaminophen 500 MG Tab PO PRN (10:32)
[2020-10-19] MEDS ORDERED: Bisacodyl 10 MG Supp RECTAL PRN (10:32)
[2020-10-19] MEDS ORDERED: Menthol/Methyl Salicylate 85 GM Tube TOP PRN (10:32)
[2020-10-19] MEDS ORDERED: guaiFENesin 100 MG/5 ML Soln 5 ML UD Cup PO PRN (10:32)
[2020-10-19] MEDS ORDERED: Magnesium Hydroxide 400 MG/5 ML Susp 30 ML Cup PO PRN (10:32)
[2020-10-19] MEDS ORDERED: TROLAMINE SALICYLATE TOP PRN (10:32)
[2020-10-19] MEDS ORDERED: DICLOFENAC SODIUM TOP PRN (10:32)
[2020-10-19] MEDS ORDERED: ALOE VERA TOP PRN (10:32)
[2020-10-19] MEDS ORDERED: Albuterol/Ipratropium 3.0-0.5 MG/3 ML Neb Soln NEB SCH (10:45)
[2020-10-19] MEDS ORDERED: Nystatin Topical Powder 30 GM Bottle TOP PRN (12:02)
[2020-10-19] MEDS ORDERED: Nystatin Susp 100,000 Unit/ML 5 ML UD Cup PO SCH (13:00)
[2020-10-19] MEDS ORDERED: Albuterol/Ipratropium 3.0-0.5 MG/3 ML Neb Soln INH SCH (13:00)
[2020-10-19 13:40] VITALS: BP 112/44; PULSE 57
[2020-10-19] MEDS ORDERED: Ferrous Sulfate 325 MG Tab PO SCH (14:00)
[2020-10-19] MEDS ORDERED: *NO WARFARIN TODAY PO ONE (14:00)
--- NOTE | 2020-10-19 14:25 | PCM.DCSUM1 ---
Discharge Summary - Hospital Course Free Text/Narrative:: penny Baldwin is an 84-year-old female with medical history significant for hypertension, type 2 diabetes, chronic diastolic heart failure, atrial fibrillation on chronic anticoagulation with warfarin, hypothyroidism, COPD, SUSU on CPAP, dyslipidemia, and prior history of tobacco use who is directly [facility] for concern for UTI and uremic encephalopathy. According to referring provider, patient was noted to be encephalopathic. UA was obtained which was cloudy and showed large leukocytes and greater than 100 WBCs per high- power field with many bacteria. CHEM panel showed BUN of 154, increased from 32; creatinine of 2.4, increased from 1.6 on 08/20/2020. WBC count was 24.85 with 87.8% neutrophils and 21.82 absolute neutrophil count. Her systolic blood pressure was 108/62 with heart rate of 60 and saturating 99% on room air. Patient was referred for admission for further management. Referring provider indicated that he discussed with patient's family about probability of uremic encephalopathy which may require assessment and management by control manager. States that family declined transfer to higher level of care and would like patient to be managed locally. Starr catheter was placed. Urine culture and blood cultures were obtained. Patient was started on broad-spectrum antibiotics with vancomycin and meropenem. Patient's metolazone and torsemide were held. Overnight, creatinine came down to 1.9 and WBC count came down to 21. BUN however remained stable at 150, was 149 at presentation to the hospital. Patient remained encephalopathic. Digoxin level was normal. ABG obtained showed pH of 7.48 with PCO2 of 56.7 and PO2 of 95 with arterial bicarb of 41.7. Patient's clinical status and lab findings were discussed extensively with her family over the phone. Patient's son and [id number] indicated that patient would want to keep fighting and that if a few sessions of dialysis with help improve her outcomes, they would want to give it a try. Discussed with Dr. Paulino who indicated that transfer to high level of care with nephrology consultation would be most appropriate for the patient. Dr. Rojas was kind to accept patient under the hospitalist service. [facility]. HPI Initial Comments: penny Baldwin is an 84-year-old female with medical history significant for hypertension, type 2 diabetes, chronic diastolic heart failure, atrial fibrillation on chronic anticoagulation with warfarin, hypothyroidism, COPD, SUSU on CPAP, dyslipidemia, and prior history of tobacco use who is directly admitted [facility] the [facility] for concern for UTI and uremic encephalopathy. According to referring provider, patient was noted to be encephalopathic. UA was obtained which was cloudy and showed large leukocytes and greater than 100 WBCs per high- power field with many bacteria. CHEM panel showed BUN of 154, increased from 32; creatinine of 2.4, increased from 1.6 on 08/20/2020. WBC count was 24.85 with 87.8% neutrophils and 21.82 absolute neutrophil count. Her systolic blood pressure was 108/62 with heart rate of 60 and saturating 99% on room air. Patient was referred for admission for further management. Referring provider indicates that he discussed with patient's family about probability of uremic encephalopathy which may require assessment and management by control manager. States that family declined transfer to higher level of care and would like patient to be managed locally. Patient reports that she does not feel good. Denies any fevers no chills, nausea, vomiting, diarrhea, constipation, dysuria, hematuria, edema, or any new symptoms. Diagnosis: Stroke: No - Discharge Data Discharge Date: 10/19/20 Discharge Disposition: DC/Tfer to Acute Hospital 02 Condition: Good - Referral to Home Health Primary Care Physician: Zack Dunaway MD - Discharge Diagnosis/Problem(s) (1) Acute kidney injury superimposed on CKD SNOMED Code(s): 93018482 ICD Code: N17.9 - ACUTE KIDNEY FAILURE, UNSPECIFIED; N18.9 - CHRONIC KIDNEY DISEASE, UNSPECIFIED Status: Acute Current Visit: Yes (2) Uremic encephalopathy SNOMED Code(s): 86152510 ICD Code: G93.49 - OTHER ENCEPHALOPATHY; N19 - UNSPECIFIED KIDNEY FAILURE Status: Acute Current Visit: Yes (3) UTI (urinary tract infection) SNOMED Code(s): 95133167 ICD Code: N39.0 - URINARY TRACT INFECTION, SITE NOT SPECIFIED Status: Acute Current Visit: Yes (4) Atrial fibrillation SNOMED Code(s): 66306632 ICD Code: I48.91 - UNSPECIFIED ATRIAL FIBRILLATION Status: Acute Current Visit: No (5) CHF (congestive heart failure) SNOMED Code(s): 84896333 ICD Code: I50.9 - HEART FAILURE, UNSPECIFIED Status: Acute Current Visit: No (6) Urinary tract infection SNOMED Code(s): 87209180 ICD Code: N39.0 - URINARY TRACT INFECTION, SITE NOT SPECIFIED Status: Acute Current Visit: No Qualifiers: Urinary tract infection type: acute cystitis Hematuria presence: with hematuria Qualified Code(s): N30.01 - Acute cystitis with hematuria (7) COPD (chronic obstructive pulmonary disease) SNOMED Code(s): 82334444 ICD Code: J44.9 - CHRONIC OBSTRUCTIVE PULMONARY DISEASE, UNSPECIFIED Status: Chronic Priority: Medium Current Visit: No Qualifiers: COPD type: chronic bronchitis Chronic bronchitis type: unspecified Qualified Code(s): J42 - Unspecified chronic bronchitis (8) Chronic atrial fibrillation SNOMED Code(s): 335560279 ICD Code: I48.2 - CHRONIC ATRIAL FIBRILLATION * DO NOT USE * Status: Chronic Priority: Medium Current Visit: No Onset Date: 02/20/16 (9) HTN (hypertension) SNOMED Code(s): 03678085 ICD Code: I10 - ESSENTIAL (PRIMARY) HYPERTENSION Status: Chronic Priority: Medium Current Visit: No Qualifiers: Hypertension type: essential hypertension Qualified Code(s): I10 - Esse ntial (primary) hypertension (10) Type 2 diabetes mellitus SNOMED Code(s): 19704635 ICD Code: E11.9 - TYPE 2 DIABETES MELLITUS WITHOUT COMPLICATIONS Status: Chronic Priority: Medium Current Visit: No Qualifiers: Diabetes mellitus senior living insulin use: with ferry terminal agent use Diabetes mellitus complication status: with unspecified complications - Discharge Plan *PRESCRIPTION DRUG MONITORING PROGRAM REVIEWED*: No *COPY OF PRESCRIPTION DRUG MONITORING REPORT IN PATIENT TONO: No Home Medications: Home Meds atorvaSTATin [Lipitor] 20 mg PO BEDTIME 06/21/15 [History] Digoxin [Lanoxin] 125 mcg PO Q48H 01/01/16 [History] Ipratropium/Albuterol Sulfate [Combivent Respimat 20-100 Mcg] 1 puff IH QID PRN 01/01/16 [History] Budesonide [Pulmicort] 2 ml NEB BID 02/20/16 [History] Montelukast [Singulair] 10 mg PO BEDTIME 05/20/16 [History] Acetaminophen [Tylenol Extra Strength] 500 mg PO BID 01/18/20 [History] Cholecalciferol (Vitamin D3) [Vitamin D3] 1,000 unit PO DAILY 01/18/20 [History] Diclofenac Sodium [Voltaren 1% Gel] 1 dose TOP DAILY PRN 01/18/20 [History] Docusate Sodium [Colace] 100 mg PO BID 01/18/20 [History] L. Acidophilus/L.bulgaricus [Floranex Tablet] 1 tab PO DAILY 01/18/20 [History] Levothyroxine 112 mcg PO ACBREAKFAST 01/18/20 [History] Metoprolol Tartrate 25 mg PO BID 01/18/20 [History] Torsemide [Demadex] 80 mg PO DAILY 01/18/20 [History] allopurinoL [Zyloprim] 200 mg PO DAILY 01/18/20 [History] polyethylene glycoL 3350 [Miralax] 17 gm PO DAILY 01/18/20 [History] Acetaminophen 500 mg PO Q6H PRN 02/29/20 [History] Cyanocobalamin (Vitamin B-12) [B-12 Compliance] 1,000 mcg IJ ASDIRECTED 02/29/20 [History] Ferrous Sulfate [Iron] 325 mg PO TID 02/29/20 [History] Hydrocodone/Acetaminophen [Hydrocodone-Acetamin 10-325 mg] 1 tab PO Q6H PRN 02/29/20 [History] Magnesium Hydroxide [Milk of Magnesia] 30 ml PO DAILY PRN 02/29/20 [History] Menthol [Icy Hot] 118 ml TP BID PRN 02/29/20 [History] Nystatin 1 applic TOP BID PRN 02/29/20 [History] Triamcinolone Acetonide [Triamcinolone Acetonide 0.1% Crm] 1 applic TOP Q8H PRN 02/29/20 [History] Trolamine Salicylate/Aloe Vera [Aspercreme 10%] 1 gm TOP BID PRN 02/29/20 [History] bisacodyL [Dulcolax] 10 mg RC DAILY PRN 02/29/20 [History] guaiFENesin [Robitussin] 200 mg PO Q4H PRN 02/29/20 [History] Omeprazole 20 mg PO DAILY 04/13/20 [History] metOLazone [Metolazone] 2.5 mg PO DAILY #14 tablet 04/16/20 [Rx] Warfarin [Coumadin] 1.25 mg PO .JACOBRI 10/18/20 [History] Warfarin [Coumadin] 2.5 mg PO .MONWEDTHUSATSUN 10/18/20 [History] Albuterol/Ipratropium [DuoNeb 3.0-0.5 MG/3 ML] 1 inh INH TID 10/19/20 [History] Hydrocodone/Acetaminophen [Hydrocodone-Acetamin 10-325 mg] 1 tab PO DAILY 10/19/20 [History] Menthol/Zinc Oxide [Calmoseptine] 1 applic PO BID 10/19/20 [History] Meropenem Premix [Meropenem] 500 mg IV Q12HR bag 10/19/20 [Rx] Nystatin 100,000 unit PO QID 10/19/20 [History] Potassium Chloride 20 meq PO DAILY 10/19/20 [History] Sodium Chloride 0.9% [Normal Saline] 100 ml IV ASDIRECTED bag 10/19/20 [Rx] - Discharge Summary/Plan Comment DC Time >30 min.: Yes - General Info Date of Service: 10/19/20 Admission Dx/Problem (Free Text: Admission Diagnosis/Problem Admission Diagnosis/Problem Metabolic encephalopathy Subjective Update: Patient remains encephalopathic/lethargic overnight. Creatinine came down to 1.9. BUN stable at 150. WBC count at 21. Denies any acute complaints but unable to stay awake to answer questions. - Patient Data Vitals - Most Recent: Last Vital Signs Temp 97.8 F 10/19/20 13:00 Pulse 57 L 10/19/20 13:40 Resp 18 10/19/20 13:00 BP 112/44 L 10/19/20 13:00 Pulse Ox 100 10/19/20 13:00 Weight - Most Recent: 173 lb 11.2 oz I&O - Last 24 hours: Intake & Output 10/18/20 10/19/20 10/19/20 22:59 06:59 14:59 Intake Total 200 300 Output Total 1300 Balance 200 -1300 300 Lab Results - Last 24 hrs: Laboratory Results - last 24 hr 10/18/20 10/18/20 10/19/20 Range/Units 20:55 21:11 05:45 WBC 21.2 H (5.0-10.0) 10^3/uL RBC 4.08 L (4.2-5.4) 10^6/uL Hgb 12.5 D (12.0-16.0) g/dL Hct 39.4 (37.0-47.0) % MCV 96.6 (80-100) fL MCH 30.6 (27.0-34.0) pg MCHC 31.7 L (33.0-35.0) g/dL Plt Count 213 D (150-450) 10^3/uL PT (9.0-12.0) SEC INR (0.9-1.2) ABG pH ABG pCO2 ABG pO2 ABG HCO3 ABG O2 Saturation ABG Base Excess Toby Test O2 Delivery Device Oxygen Flow Rate Sodium 135 L (136-145) mmol/L Potassium 3.2 L (3.5-5.1) mmol/L Chloride 88 L (98-107) mmol/L Carbon Dioxide 42 H* (21-32) mmol/L Anion Gap 8.2 (7-13) mEq/L BUN 149 H D (7-18) mg/dL Creatinine 2.33 H (0.55-1.02) mg/dL Est Cr Clr Drug Dosing 14.34 mL/min Estimated GFR (MDRD) 20 Glucose 138 H (74-99) mg/dL POC Glucose 165 H (83-110) mg/dl Calcium 8.7 (8.5-10.1) mg/dL Phosphorus (2.6-4.7) mg/dL Magnesium (1.8-2.4) mg/dL TSH, Ultra Sensitive (0.36-3.74) uIU/mL Digoxin (0.9-2.0) ng/mL 10/19/20 10/19/20 10/19/20 Range/Units 05:45 05:45 05:45 WBC (5.0-10.0) 10^3/uL RBC (4.2-5.4) 10^6/uL Hgb (12.0-16.0) g/dL Hct (37.0-47.0) % MCV (80-100) fL MCH (27.0-34.0) pg MCHC (33.0-35.0) g/dL Plt Count (150-450) 10^3/uL PT 38.0 H D (9.0-12.0) SEC INR 4.1 H (0.9-1.2) ABG pH ABG pCO2 ABG pO2 ABG HCO3 ABG O2 Saturation ABG Base Excess Toby Test O2 Delivery Device Oxygen Flow Rate Sodium 138 (136-145) mmol/L Potassium 2.7 L (3.5-5.1) mmol/L Chloride 92 L (98-107) mmol/L Carbon Dioxide 40 H (21-32) mmol/L Anion Gap 8.7 (7-13) mEq/L BUN 150 H (7-18) mg/dL Creatinine 1.92 H (0.55-1.02) mg/dL Est Cr Clr Drug Dosing 17.40 mL/min Estimated GFR (MDRD) 25 Glucose 159 H (74-99) mg/dL POC Glucose (83-110) mg/dl Calcium 8.5 (8.5-10.1) mg/dL Phosphorus 4.8 H (2.6-4.7) mg/dL Magnesium 1.7 L (1.8-2.4) mg/dL TSH, Ultra Sensitive 0.17 L (0.36-3.74) uIU/mL Digoxin (0.9-2.0) ng/mL 10/19/20 10/19/20 10/19/20 Range/Units 05:45 07:39 10:31 WBC (5.0-10.0) 10^3/uL RBC (4.2-5.4) 10^6/uL Hgb (12.0-16.0) g/dL Hct (37.0-47.0) % MCV (80-100) fL MCH (27.0-34.0) pg MCHC (33.0-35.0) g/dL Plt Count (150-450) 10^3/uL PT (9.0-12.0) SEC INR (0.9-1.2) ABG pH Cancelled ABG pCO2 Cancelled ABG pO2 Cancelled ABG HCO3 Cancelled ABG O2 Saturation Cancelled ABG Base Excess Cancelled Toby Test Cancelled O2 Delivery Device Cancelled Oxygen Flow Rate Cancelled Sodium (136-145) mmol/L Potassium (3.5-5.1) mmol/L Chloride (98-107) mmol/L Carbon Dioxide (21-32) mmol/L Anion Gap (7-13) mEq/L BUN (7-18) mg/dL Creatinine (0.55-1.02) mg/dL Est Cr Clr Drug Dosing mL/min Estimated GFR (MDRD) Glucose (74-99) mg/dL POC Glucose 156 H (83-110) mg/dl Calcium (8.5-10.1) mg/dL Phosphorus (2.6-4.7) mg/dL Magnesium (1.8-2.4) mg/dL TSH, Ultra Sensitive (0.36-3.74) uIU/mL Digoxin 1.1 (0.9-2.0) ng/mL 10/19/20 Range/Units 11:42 WBC (5.0-10.0) 10^3/uL RBC (4.2-5.4) 10^6/uL Hgb (12.0-16.0) g/dL Hct (37.0-47.0) % MCV (80-100) fL MCH (27.0-34.0) pg MCHC (33.0-35.0) g/dL Plt Count (150-450) 10^3/uL PT (9.0-12.0) SEC INR (0.9-1.2) ABG pH ABG pCO2 ABG pO2 ABG HCO3 ABG O2 Saturation ABG Base Excess Toby Test O2 Delivery Device Oxygen Flow Rate Sodium (136-145) mmol/L Potassium (3.5-5.1) mmol/L Chloride (98-107) mmol/L Carbon Dioxide (21-32) mmol/L Anion Gap (7-13) mEq/L BUN (7-18) mg/dL Creatinine (0.55-1.02) mg/dL Est Cr Clr Drug Dosing mL/min Estimated GFR (MDRD) Glucose (74-99) mg/dL POC Glucose 197 H (83-110) mg/dl Calcium (8.5-10.1) mg/dL Phosphorus (2.6-4.7) mg/dL Magnesium (1.8-2.4) mg/dL TSH, Ultra Sensitive (0.36-3.74) uIU/mL Digoxin (0.9-2.0) ng/mL SAULO Results - Last 24 hrs: Microbiology 10/18/20 19:00 Urine Culture - Preliminary Urine, Catheterized Med Orders - Current: Current Medications Acetaminophen (Tylenol) 650 mg PO Q4H PRN PRN Reason: Pain (Mild 1-3)/fever Last Admin: 10/19/20 13:03 Dose: 650 mg Documented by: Acetaminophen (Tylenol Extra Strength) 500 mg PO BID [facility] Albuterol/Ipratropium (Duoneb 3.0-0.5 Mg/3 Ml) 3 ml INH TIDRT [facility] Last Admin: 10/19/20 13:25 Dose: 3 ml Documented by: Allopurinol (Zyloprim) 200 mg PO DAILY [facility] Atorvastatin Calcium (Lipitor) 20 mg PO BEDTIME [facility] Bisacodyl (Dulcolax) 10 mg RECTAL DAILY PRN PRN Reason: Constipation Budesonide (Pulmicort) 0.5 mg NEB BIDRT [facility] Dextrose/Water (Dextrose 50% In Water) 50 ml IV ASDIRECTED PRN PRN Reason: Hypoglycemia Dextrose/Water (Dextrose 50% In Water) 25 ml IVPUSH ASDIRECTED PRN PRN Reason: Hypoglycemia Digoxin (Lanoxin) 125 mcg PO Q48H [facility] Docusate Sodium (Colace) 100 mg PO BID [facility] Ferrous Sulfate (Ferrous Sulfate) 325 mg PO TID [facility] Last Admin: 10/19/20 13:04 Dose: 325 mg Documented by: Glucagon (Glucagen) 1 mg IM ASDIRECTED PRN PRN Reason: Hypoglycemia Glucagon (Glucagen) 1 mg IM ONETIME PRN PRN Reason: Hypoglycemia Guaifenesin (Robitussin) 200 mg PO Q4H PRN PRN Reason: Cough Sodium Chloride (Normal Saline) 1,000 mls @ 100 mls/hr IV ASDIRECTED [facility] Last Admin: 10/19/20 06:49 Dose: 100 mls/hr Documented by: Meropenem/Sodium Chloride 500 (mg/ Premix) 50 mls @ 100 mls/hr IV Q12HR [facility] Last Infusion: 10/19/20 10:00 Dose: Infused Documented by: Insulin Human Lispro (Humalog) 0 unit SUBCUT WITHMEALSANDBED [facility]; Protocol Last Admin: 10/19/20 13:03 Dose: Not Given Documented by: Levothyroxine Sodium (Levothyroxine) 112 mcg PO ACBREAKFAST [facility] Magnesium Hydroxide (Milk Of Magnesia) 30 ml PO DAILY PRN PRN Reason: Constipation Methyl Salicylate (Icy Hot Cream) 0 gm TOP BID PRN PRN Reason: Pain Metoprolol Tartrate (Lopressor) 25 mg PO BID [facility] Montelukast Sodium (Singulair) 10 mg PO BEDTIME [facility] Non-Formulary Medication (Diclofenac Sodium [Voltaren 1% Gel]) 1 dose TOP ASDIRECTED PRN PRN Reason: Pain Non-Formulary Medication (L. Acidophilus/L.Bulgaricus [Floranex Tablet]) 1 tab PO DAILY [facility] Non-Formulary Medication (Menthol/Zinc Oxide [Calmoseptine]) 1 applic PO BID [facility] Nystatin (Nystop) 1 gm TOP BID PRN PRN Reason: REDNESS Last Admin: 10/19/20 13:21 Dose: 1 applic Documented by: Nystatin (Mycostatin) 5 ml PO QID [facility] Stop: 10/24/20 17:01 Last Admin: 10/19/20 13:07 Dose: 5 ml Documented by: Omeprazole (Omeprazole) 20 mg PO DAILY [facility] Ondansetron HCl (Zofran Odt) 4 mg PO Q6H PRN PRN Reason: nausea, able to take PO Ondansetron HCl (Zofran) 4 mg IVPUSH Q6H PRN PRN Reason: Nausea/Vomiting Polyethylene Glycol (Miralax) 17 gm PO DAILY [facility] Potassium Chloride (Klor-Con 10) 20 meq PO DAILY [facility] Senna/Docusate Sodium (Senna Plus) 1 tab PO BEDTIME PRN PRN Reason: Constipation Triamcinolone Acetonide (Triamcinolone Acetonide 0.1% Crm) 0 gm TOP Q8H PRN PRN Reason: Itching Warfarin Sodium (Pharmacy To Dose - Warfarin) 1 dose .XX ASDIRECTED [facility] Discontinued Medications Ceftriaxone Sodium 1 gm/ (Sodium Chloride) 50 mls @ 100 mls/hr IV Q24H [facility] Last Admin: 10/18/20 19:49 Dose: Not Given Documented by: Vancomycin HCl 1 gm/ Sodium (Chloride) 250 mls @ 166.667 mls/hr IV Q24H [facility] Vancomycin HCl 1 gm/ Sodium (Chloride) 250 mls @ 166.667 mls/hr IV Q24H [facility] Meropenem/Sodium Chloride 1 gm (/ Premix) 50 mls @ 100 mls/hr IV ONETIME ONE Stop: 10/18/20 22:29 Last Infusion: 10/18/20 22:27 Dose: Infused Documented by: Vancomycin HCl 1 gm/ Sodium (Chloride) 250 mls @ 166.667 mls/hr IV Q48H [facility] Last Admin: 10/18/20 19:46 Dose: 166.667 mls/hr Documented by: *No Warfarin Today* 0 each PO ONETIME ONE Stop: 10/19/20 14:01 Last Admin: 10/19/20 13:09 Dose: Not Given Documented by: Potassium Chloride (Klor-Con 10) 40 meq PO Q4H [facility] Stop: 10/19/20 13:01 Last Admin: 10/19/20 13:05 Dose: 40 meq Documented by: Vancomycin HCl (Pharmacy To Dose - Vancomycin) 1 dose .XX ASDIRECTED TAMI - Exam General: Reports: Alert, Lethargic HEENT: Reports: Pupils Equal, Pupils Reactive Neck: Reports: Supple Lungs: Reports: Clear to Auscultation (Shallow breaths. ) Cardiovascular: Reports: Regular Rate, Regular Rhythm GI/Abdominal Exam: Normal Bowel Sounds, Soft, Non-Tender (Female) Exam: Other (Starr catheter in place with clear yellow urine in bag. ) Extremities: Normal Inspection, Non-Tender, No Pedal Edema Skin: Reports: Warm, Dry, Intact Psy/Mental Status: Reports: Alert
[2020-10-19] MEDS ORDERED: Budesonide 0.5 MG/2 ML Neb Susp NEB SCH (18:00)
[2020-10-19 18:50] LABS: O2 DELIVERY DEVICE NASAL CANNULA
[2020-10-19 18:51] LABS: ALLEN TEST LB; BASE EXCESS ARTERIAL 16 mmol/L ((-2)-(+3)); BICARBONATE,ARTERIAL 41.7 mmol/L (22-26); O2 SATURATION ARTERIAL 95 % (95-100); PCO2 ARTERIAL 57 mmHg (35-45); PO2 ARTERIAL 95 mmHg (70-100)
[2020-10-19 18:52] LABS: O2 FLOW RATE 2
[2020-10-19] MEDS ORDERED: ZINC OXIDE PO SCH (21:00)
[2020-10-19] MEDS ORDERED: Metoprolol Tartrate 25 MG Tab PO SCH (21:00)
[2020-10-19] MEDS ORDERED: Docusate Sodium 100 MG Cap PO SCH (21:00)
[2020-10-19] MEDS ORDERED: MENTHOL PO SCH (21:00)
[2020-10-19] MEDS ORDERED: atorvaSTATin 20 MG Tab PO SCH (21:00)
[2020-10-19] MEDS ORDERED: Montelukast 10 MG Tab PO SCH (21:00)
[2020-10-19] MEDS ORDERED: Acetaminophen 500 MG Tab PO SCH (21:00)
--- NOTE | 2020-10-19 21:13 | US ---
EXAMINATION: Retroperitoneal Ltd SEX: Female AGE: 84 years CLINICAL HISTORY: 84-year-old hypertensive female, ex-smoker with history iron deficiency anemia. Rule out obstructive uropathy. Interpretation: Limited sonographic exam of the kidneys UNREMARKABLE. Normal reniform size, axis and configuration both kidneys. No sign of hypoechoic cystic or echogenic solid renal cortical mass lesion. No nephrolithiasis or current signs of obstructive uropathy i.e. no pyelocaliectasis or hydronephrosis. Right kidney measures 9.33 cm L x 5.52 cm W x 4.47 cm AP diameter. Left kidney measures 7.76 cm L x 4.46 cm W x 4.21 cm AP diameter.
[2020-10-20] MEDS ORDERED: Levothyroxine 112 MCG Tab PO SCH (06:00)
[2020-10-20] MEDS ORDERED: Omeprazole 20 MG Cap.CR PO SCH (09:00)
[2020-10-20] MEDS ORDERED: Allopurinol 100 MG Tab PO SCH (09:00)
[2020-10-20] MEDS ORDERED: Potassium Chloride 10 MEQ Tab.ER PO SCH (09:00)
[2020-10-20] MEDS ORDERED: Polyethylene Glycol 3350 Powder 17 GM Packet PO SCH (09:00)
[2020-10-20] MEDS ORDERED: Digoxin 125 MCG Tab PO SCH (09:00)
[2020-10-20] MEDS ORDERED: ACIDOPHILUS PO SCH (09:00)
[2020-10-20] MEDS ORDERED: BULGARICUS PO SCH (09:00)
== END 2020-10-19 14:43 | DRG 690 ==
LOC: UNDOADMIN 17:24 → DL.MS 17:24
PROVIDERS: ADMIT Internal Medicine; ATTEND Internal Medicine
DX: N30.01 Acute cystitis with hematuria (principal); I50.32 Chronic diastolic (congestive) heart failure; N17.9 Acute kidney failure, unspecified; I13.0 Hypertensive heart and chronic kidney disease with heart failure and stage 1 through stage 4 chronic kidney disease, or unspecified chronic kidney disease; G93.49 Other encephalopathy; I48.20 Chronic atrial fibrillation, unspecified; E11.9 Type 2 diabetes mellitus without complications; Z79.4 Long term (current) use of insulin; Z79.01 Long term (current) use of anticoagulants; E03.9 Hypothyroidism, unspecified; J44.9 Chronic obstructive pulmonary disease, unspecified; G47.33 Obstructive sleep apnea (adult) (pediatric); E78.5 Hyperlipidemia, unspecified; F17.210 Nicotine dependence, cigarettes, uncomplicated; N18.9 Chronic kidney disease, unspecified; E11.22 Type 2 diabetes mellitus with diabetic chronic kidney disease; I25.10 Atherosclerotic heart disease of native coronary artery without angina pectoris; K59.09 Other constipation; D63.1 Anemia in chronic kidney disease; Z98.42 Cataract extraction status, left eye; Z98.41 Cataract extraction status, right eye; Z90.49 Acquired absence of other specified parts of digestive tract; Z90.710 Acquired absence of both cervix and uterus
CPT/HCPCS: 36415; 36600; 51702; 76775; 80048; 80162; 82803; 82962; 83735; 84100; 84443; 85027; 85610; 87040; 87086; 87088; 87186; A9270-GY; J2185; J3370; J7030; J7050; J7620-GY

== ENCOUNTER 2022-01-28 09:06 | Emergency (ER) | payer MEDICARE, BC, MEDICAID ==
[2022-01-28 09:50] VITALS: BP 129/68; PULSE 75
[2022-01-28 10:35] LABS: ANION GAP 8.8 mEq/L (7-13); CHLORIDE,CL 93 mmol/L (98-107); ESTIMATED GFR 26; SODIUM,NA 136 mmol/L (136-145)
== END 2022-01-28 13:37 | disposition home or self-care (01) ==
LOC: DL.ED 09:06
DX: R07.9 Chest pain, unspecified (principal); I48.91 Unspecified atrial fibrillation; I25.10 Atherosclerotic heart disease of native coronary artery without angina pectoris; E78.00 Pure hypercholesterolemia, unspecified; I11.0 Hypertensive heart disease with heart failure; I50.9 Heart failure, unspecified; J44.9 Chronic obstructive pulmonary disease, unspecified; E11.9 Type 2 diabetes mellitus without complications; E03.9 Hypothyroidism, unspecified; E66.9 Obesity, unspecified; Z68.30 Body mass index [BMI] 30.0-30.9, adult; Z88.1 Allergy status to other antibiotic agents; Z88.8 Allergy status to other drugs, medicaments and biological substances; Z88.2 Allergy status to sulfonamides; Z88.0 Allergy status to penicillin; Z79.01 Long term (current) use of anticoagulants; Z79.899 Other long term (current) drug therapy
CPT/HCPCS: 36415; 71045; 80053; 83605; 84484; 85025; 85379; 85610; 87040; 93005; 93010; 99285; 99285-25

== ENCOUNTER 2022-03-13 12:00 | Inpatient (IN) | payer MEDICARE, BC, MEDICAID ==
[2022-03-13 13:31] LABS: ANION GAP 5.8 mEq/L (7-13); CHLORIDE,CL 95 mmol/L (98-107); SODIUM,NA 138 mmol/L (136-145)
[2022-03-13 13:58] LABS: AMPHETAMINES,URINE NEGATIVE (NEGATIVE); BARBITURATES,URINE NEGATIVE (NEGATIVE); BENZODIAZEPINE,URINE NEGATIVE (NEGATIVE); MDMA (ECSTASY), URINE NEGATIVE (NEGATIVE); METHADONE,URINE NEGATIVE (NEGATIVE); METHAMPHETAMINES,URINE NEGATIVE (NEGATIVE); OPIATES,URINE NEGATIVE (NEGATIVE); OXYCODONE,URINE NEGATIVE (NEGATIVE); PHENCYCLIDINE,URINE NEGATIVE (NEGATIVE); TCA,URINE NEGATIVE (NEGATIVE)
[2022-03-13 14:13] LABS: CORONAVIRUS COVID-19 NAA NEGATIVE (NEGATIVE); RESPIRATORY SYNCYTIAL VIR NAA NEGATIVE (NEGATIVE)
[2022-03-13] MEDS ORDERED: Magnesium Sulfate/Water 2 GM in Premix Bag 1 BAG IV ONE (14:43)
[2022-03-13 15:41] LABS: PTT,PARTIAL THROMBOPLSTIN TIME 37.4 SEC (22.0-34.0)
[2022-03-13] MEDS ORDERED: Albuterol/Ipratropium 3.0-0.5 MG/3 ML Neb Soln NEB PRN ×2 (15:56→16:13)
[2022-03-13] MEDS ORDERED: Bisacodyl 5 MG Tab PO PRN ×2 (15:56→16:14)
[2022-03-13] MEDS ORDERED: Polyethylene Glycol 3350 Powder 17 GM Packet PO PRN ×2 (15:56→16:13)
[2022-03-13] MEDS ORDERED: Magnesium Hydroxide 400 MG/5 ML Susp 30 ML Cup PO PRN ×2 (15:56→16:13)
[2022-03-13] MEDS ORDERED: Acetaminophen 325 MG Tab PO PRN ×2 (15:56→16:13)
[2022-03-13] MEDS ORDERED: Ondansetron 4 MG/2 ML SDV IVPUSH PRN ×2 (15:56→16:13)
[2022-03-13] MEDS ORDERED: cefTRIAXone 1 GM in Sodium Chloride 0.9% 50 ML IV ONE ×2 (16:00→16:15)
[2022-03-13] MEDS ORDERED: Sodium Bicarbonate 50 MEQ in Dextrose 5%-0.45% NaCl 1,000 ML IV SCH ×2 (16:15→18:00)
[2022-03-13] MEDS ORDERED: Sodium Chloride 0.9% 500 ML IV ONE (16:15)
[2022-03-13] MEDS ORDERED: Sodium Chloride 0.9% 500 ML IV SCH (16:15)
[2022-03-13] MEDS ORDERED: Sodium Chloride 0.9% 1,000 ML IV SCH (16:15)
[2022-03-13] MEDS ORDERED: Sodium Bicarbonate 8.4% 50 MEQ/50 ML SDV ONE (17:38)
[2022-03-13 22:37] LABS: ANION GAP 7.9 mEq/L (7-13)
[2022-03-14] MEDS ORDERED: Simethicone 80 MG Tab.Chew PO PRN (00:45)
[2022-03-14] MEDS ORDERED: GUAIFENESIN 200 MG PO SCH (00:45)
[2022-03-14] MEDS ORDERED: Potassium Chloride 10 MEQ in Premix Bag 1 BAG IV SCH (00:45)
[2022-03-14] MEDS ORDERED: Albuterol/Ipratropium 3.0-0.5 MG/3 ML Neb Soln NEB SCH (00:45)
[2022-03-14] MEDS: Potassium Chloride 10 MEQ in Premix Bag 1 BAG IV SCH ×7 (02:52→10:29)
[2022-03-14] MEDS: Omeprazole 20 MG Cap.CR PO SCH (05:54)
[2022-03-14] MEDS ORDERED: MAGNESIUM HYDROXIDE 400 MG/5 ML PO SCH (09:00)
[2022-03-14] MEDS ORDERED: LACTOSE REDUCED FOOD PO SCH (09:00)
[2022-03-14] MEDS ORDERED: BETAMETHASONE TOP SCH (09:00)
[2022-03-14] MEDS ORDERED: CLOTRIMAZOLE TOP SCH (09:00)
[2022-03-14] MEDS ORDERED: Menthol/Methyl Salicylate 85 GM Tube TOP PRN (09:47)
[2022-03-14 09:58] LABS: ANION GAP 5.9 mEq/L (7-13)
[2022-03-14] MEDS ORDERED: Nystatin Topical Powder 30 GM Bottle TOP PRN (10:00)
[2022-03-14] MEDS: Docusate Sodium 100 MG Cap PO SCH ×2 (10:29→21:15)
[2022-03-14] MEDS: Polyethylene Glycol 3350 Powder 17 GM Packet PO SCH (10:30)
[2022-03-14] MEDS: Ferrous Sulfate 325 MG Tab PO SCH (10:30)
[2022-03-14] MEDS: Cholecalciferol (Vitamin D3) 25 MCG Tab PO SCH (10:30)
[2022-03-14] MEDS: cefTRIAXone 1 GM in Sodium Chloride 0.9% 50 ML IV SCH (12:35)
[2022-03-14] MEDS ORDERED: Calcium Carbonate 500 MG Tab.Chew PO PRN (13:00)
[2022-03-14] MEDS ORDERED: Warfarin 2.5 MG Tab PO ONE (14:00)
[2022-03-14] MEDS ORDERED: Warfarin 2.5 MG Tab PO SCH (14:00)
[2022-03-14] MEDS ORDERED: guaiFENesin 100 MG/5 ML Soln 5 ML UD Cup PO PRN (14:29)
[2022-03-14] MEDS ORDERED: Magnesium Hydroxide 400 MG/5 ML Susp 30 ML Cup PO PRN (14:29)
[2022-03-14] MEDS ORDERED: Magnesium Sulfate/Water 2 GM in Premix Bag 1 BAG IV ONE ×2 (16:00→22:00)
[2022-03-14] MEDS: Budesonide 0.5 MG/2 ML Neb Susp INH SCH (18:49)
[2022-03-14 21:30] LABS: ANION GAP 7.7 mEq/L (7-13)
[2022-03-15 06:41] LABS: ANION GAP 5.4 mEq/L (7-13)
[2022-03-15] MEDS: Budesonide 0.5 MG/2 ML Neb Susp INH SCH ×2 (07:40→18:25)
[2022-03-15] MEDS ORDERED: Ziprasidone Mesylate 20 MG Vial IM ONE (08:37)
[2022-03-15] MEDS ORDERED: Warfarin 2.5 MG Tab PO SCH ×3 (09:00→14:00)
[2022-03-15] MEDS: Omeprazole 20 MG Cap.CR PO SCH (09:15)
[2022-03-15] MEDS: cefTRIAXone 1 GM in Sodium Chloride 0.9% 50 ML IV SCH (09:18)
[2022-03-15] MEDS: Cholecalciferol (Vitamin D3) 25 MCG Tab PO SCH (09:19)
[2022-03-15] MEDS: Saccharomyces Boulardii (Probiotic) 250 MG Cap PO SCH (09:19)
[2022-03-15] MEDS: Ferrous Sulfate 325 MG Tab PO SCH (09:19)
[2022-03-15] MEDS: Polyethylene Glycol 3350 Powder 17 GM Packet PO SCH (09:19)
[2022-03-15] MEDS: Docusate Sodium 100 MG Cap PO SCH ×2 (09:19→20:22)
[2022-03-15] MEDS ORDERED: Ciprofloxacin in D5W 200 MG in Premix Bag 1 BAG IV ONE ×2 (18:00)
[2022-03-15] MEDS: Donepezil 10 MG Tab PO SCH (20:22)
[2022-03-15] MEDS: Melatonin 3 MG Tab PO PRN (20:22)
[2022-03-16] MEDS: Omeprazole 20 MG Cap.CR PO SCH (05:46)
[2022-03-16 06:38] LABS: ANION GAP 7.4 mEq/L (7-13)
[2022-03-16] MEDS: Budesonide 0.5 MG/2 ML Neb Susp INH SCH ×2 (07:32→17:57)
[2022-03-16] MEDS ORDERED: Potassium Chloride 10 MEQ Tab.ER PO SCH ×2 (08:00)
[2022-03-16] MEDS: Docusate Sodium 100 MG Cap PO SCH ×2 (09:28→20:49)
[2022-03-16] MEDS: Ferrous Sulfate 325 MG Tab PO SCH (09:28)
[2022-03-16] MEDS: Cholecalciferol (Vitamin D3) 25 MCG Tab PO SCH (09:29)
[2022-03-16] MEDS: Saccharomyces Boulardii (Probiotic) 250 MG Cap PO SCH (09:29)
[2022-03-16] MEDS: Polyethylene Glycol 3350 Powder 17 GM Packet PO SCH (09:30)
[2022-03-16] MEDS: Ciprofloxacin in D5W 200 MG in Premix Bag 1 BAG IV SCH ×2 (09:35)
[2022-03-16] MEDS ORDERED: Bisacodyl 10 MG Supp RECTAL PRN (11:00)
[2022-03-16] MEDS ORDERED: Loperamide 2 MG Cap PO PRN (11:01)
[2022-03-16] MEDS ORDERED: Non-Formulary Medication 1 Each (Albuterol/Ipratropium 4 GM Inhaler) IH PRN (11:02)
[2022-03-16] MEDS ORDERED: Warfarin 2.5 MG Tab PO SCH (14:00)
[2022-03-16] MEDS: Metoprolol Tartrate 25 MG Tab PO SCH (17:10)
[2022-03-16] MEDS: Donepezil 10 MG Tab PO SCH (20:48)
[2022-03-16] MEDS: atorvaSTATin 20 MG Tab PO SCH (20:49)
[2022-03-16] MEDS: Melatonin 3 MG Tab PO PRN (20:49)
[2022-03-17] MEDS: Donepezil 10 MG Tab PO SCH (06:56)
[2022-03-17] MEDS: atorvaSTATin 20 MG Tab PO SCH (06:56)
[2022-03-17] MEDS: Docusate Sodium 100 MG Cap PO SCH ×2 (06:56→08:22)
[2022-03-17] MEDS: Budesonide 0.5 MG/2 ML Neb Susp INH SCH ×2 (07:58→18:25)
[2022-03-17] MEDS: Omeprazole 20 MG Cap.CR PO SCH (08:21)
[2022-03-17] MEDS: Digoxin 125 MCG Tab PO SCH (08:22)
[2022-03-17] MEDS: Levothyroxine 100 MCG Tab PO SCH (08:22)
[2022-03-17] MEDS: Metolazone 2.5 MG Tab PO SCH (08:22)
[2022-03-17] MEDS: Ferrous Sulfate 325 MG Tab PO SCH (08:22)
[2022-03-17] MEDS: Allopurinol 100 MG Tab PO SCH (08:22)
[2022-03-17] MEDS: Cholecalciferol (Vitamin D3) 25 MCG Tab PO SCH (08:22)
[2022-03-17] MEDS: Polyethylene Glycol 3350 Powder 17 GM Packet PO SCH (08:22)
[2022-03-17] MEDS: Saccharomyces Boulardii (Probiotic) 250 MG Cap PO SCH (08:22)
[2022-03-17] MEDS ORDERED: DULoxetine 30 MG Cap PO SCH (09:00)
[2022-03-17] MEDS ORDERED: Allopurinol 100 MG Tab PO SCH (09:00)
[2022-03-17] MEDS: Torsemide 20 MG Tab PO SCH (10:17)
[2022-03-17] MEDS: Metoprolol Tartrate 25 MG Tab PO SCH ×2 (10:17→17:17)
[2022-03-17] MEDS: DULoxetine 30 MG Cap PO SCH (10:17)
[2022-03-17] MEDS: Ciprofloxacin in D5W 200 MG in Premix Bag 1 BAG IV SCH ×2 (10:45)
[2022-03-17] MEDS ORDERED: Warfarin 2.5 MG Tab PO ONE (14:00)
[2022-03-17] MEDS ORDERED: Water For Injection, Sterile 20 ML ONE (18:25)
[2022-03-17] MEDS: Ziprasidone Mesylate 20 MG Vial IM PRN (18:32)
[2022-03-18] MEDS: Potassium Chloride 10 MEQ Tab.ER PO SCH ×2 (00:06→21:28)
[2022-03-18] MEDS: atorvaSTATin 20 MG Tab PO SCH ×2 (00:06→21:28)
[2022-03-18] MEDS: Donepezil 10 MG Tab PO SCH ×3 (00:06→22:32)
[2022-03-18] MEDS: Docusate Sodium 100 MG Cap PO SCH ×3 (00:06→21:29)
[2022-03-18 07:42] LABS: ANION GAP 8.7 mEq/L (7-13)
[2022-03-18] MEDS: Omeprazole 20 MG Cap.CR PO SCH (11:18)
[2022-03-18] MEDS: Budesonide 0.5 MG/2 ML Neb Susp INH SCH ×2 (11:18→18:00)
[2022-03-18] MEDS: Levothyroxine 100 MCG Tab PO SCH (11:18)
[2022-03-18] MEDS: Ciprofloxacin in D5W 200 MG in Premix Bag 1 BAG IV SCH ×2 (11:19)
[2022-03-18] MEDS: Ferrous Sulfate 325 MG Tab PO SCH (11:42)
[2022-03-18] MEDS: Cholecalciferol (Vitamin D3) 25 MCG Tab PO SCH (11:42)
[2022-03-18] MEDS: Metoprolol Tartrate 25 MG Tab PO SCH ×2 (11:42→17:06)
[2022-03-18] MEDS: Saccharomyces Boulardii (Probiotic) 250 MG Cap PO SCH (11:42)
[2022-03-18] MEDS: DULoxetine 30 MG Cap PO SCH (11:42)
[2022-03-18] MEDS: Polyethylene Glycol 3350 Powder 17 GM Packet PO SCH (11:42)
[2022-03-18] MEDS: Allopurinol 100 MG Tab PO SCH (11:42)
[2022-03-18] MEDS: Torsemide 20 MG Tab PO SCH (11:42)
[2022-03-18] MEDS: DICLOFENAC 3% TOP SCH ×4 (12:46→21:29)
[2022-03-18] MEDS: Cephalexin 500 MG Cap PO SCH ×3 (12:47→22:31)
[2022-03-18] MEDS: Warfarin 2.5 MG Tab PO ONE ×2 (12:49→13:07)
[2022-03-18] MEDS ORDERED: Water For Injection, Sterile 20 ML ONE (21:03)
[2022-03-18] MEDS: Melatonin 3 MG Tab PO PRN (21:26)
[2022-03-18] MEDS: Ziprasidone Mesylate 20 MG Vial IM PRN (21:26)
[2022-03-19] MEDS: Omeprazole 20 MG Cap.CR PO SCH (06:09)
[2022-03-19] MEDS: Levothyroxine 100 MCG Tab PO SCH (06:09)
[2022-03-19] MEDS: Budesonide 0.5 MG/2 ML Neb Susp INH SCH ×2 (10:36→18:36)
[2022-03-19] MEDS: DULoxetine 30 MG Cap PO SCH (10:36)
[2022-03-19] MEDS: Metolazone 2.5 MG Tab PO SCH (10:36)
[2022-03-19] MEDS: Digoxin 125 MCG Tab PO SCH (10:36)
[2022-03-19] MEDS: Docusate Sodium 100 MG Cap PO SCH ×3 (10:36→22:33)
[2022-03-19] MEDS: Torsemide 20 MG Tab PO SCH (10:37)
[2022-03-19] MEDS: Polyethylene Glycol 3350 Powder 17 GM Packet PO SCH (10:37)
[2022-03-19] MEDS: Cephalexin 500 MG Cap PO SCH ×3 (10:37→22:36)
[2022-03-19] MEDS: DICLOFENAC 3% TOP SCH ×5 (10:37→22:36)
[2022-03-19] MEDS: Saccharomyces Boulardii (Probiotic) 250 MG Cap PO SCH (10:37)
[2022-03-19] MEDS: Cholecalciferol (Vitamin D3) 25 MCG Tab PO SCH (10:37)
[2022-03-19] MEDS: Metoprolol Tartrate 25 MG Tab PO SCH ×2 (10:37→18:36)
[2022-03-19] MEDS: Ferrous Sulfate 325 MG Tab PO SCH (10:37)
[2022-03-19] MEDS: Allopurinol 100 MG Tab PO SCH (10:38)
[2022-03-19] MEDS ORDERED: Ziprasidone Mesylate 20 MG Vial IM ONE (11:26)
[2022-03-19] MEDS ORDERED: Ziprasidone Mesylate 20 MG Vial IM PRN (11:28)
[2022-03-19] MEDS ORDERED: Water For Injection, Sterile 20 ML ONE (11:37)
[2022-03-19] MEDS ORDERED: Warfarin 2.5 MG Tab PO ONE (14:00)
[2022-03-19] MEDS: Donepezil 10 MG Tab PO SCH ×2 (22:28→22:36)
[2022-03-19] MEDS: Potassium Chloride 10 MEQ Tab.ER PO SCH ×2 (22:29→22:36)
[2022-03-19] MEDS: atorvaSTATin 20 MG Tab PO SCH ×2 (22:29→22:36)
[2022-03-19 22:45] VITALS: BP 136/67; PULSE 86
[2022-03-20] MEDS: Levothyroxine 100 MCG Tab PO SCH (06:47)
[2022-03-20] MEDS: Omeprazole 20 MG Cap.CR PO SCH (06:47)
[2022-03-31] MEDS ORDERED: Cyanocobalamin (Vitamin B12) 1,000 MCG/ML SDV IM SCH (09:00)
== END 2022-03-20 09:15 | disposition other institution (70) | DRG 682 ==
LOC: DL.ED 12:00 → DL.MS 15:54 → UNDOADMIN 15:54 → DL.ED 16:08 → UNDOADMIN 16:13 → DL.MS 16:13 → UNDOADMIN 16:30 → DL.MS 16:30 → UNDOADMIN 03-16 11:26 → DL.MS 03-17 11:25 → UNDODISIN 03-20 09:15
PROVIDERS: ADMIT Internal Medicine; ATTEND Internal Medicine
DX: N17.9 Acute kidney failure, unspecified (principal); G92.8 Other toxic encephalopathy; N30.01 Acute cystitis with hematuria; I13.0 Hypertensive heart and chronic kidney disease with heart failure and stage 1 through stage 4 chronic kidney disease, or unspecified chronic kidney disease; E87.1 Hypo-osmolality and hyponatremia; F01.50 Vascular dementia, unspecified severity, without behavioral disturbance, psychotic disturbance, mood disturbance, and anxiety; H54.7 Unspecified visual loss; I11.0 Hypertensive heart disease with heart failure; E78.5 Hyperlipidemia, unspecified; E03.9 Hypothyroidism, unspecified; I27.20 Pulmonary hypertension, unspecified; J44.9 Chronic obstructive pulmonary disease, unspecified; G47.30 Sleep apnea, unspecified; I48.0 Paroxysmal atrial fibrillation; E11.9 Type 2 diabetes mellitus without complications; I25.10 Atherosclerotic heart disease of native coronary artery without angina pectoris; I50.9 Heart failure, unspecified; E11.65 Type 2 diabetes mellitus with hyperglycemia; E83.42 Hypomagnesemia; R74.8 Abnormal levels of other serum enzymes; E88.09 Other disorders of plasma-protein metabolism, not elsewhere classified; K59.09 Other constipation; Z20.822 Contact with and (suspected) exposure to COVID-19; R32 Unspecified urinary incontinence; N32.81 Overactive bladder; M19.90 Unspecified osteoarthritis, unspecified site; I48.91 Unspecified atrial fibrillation; E78.00 Pure hypercholesterolemia, unspecified; E66.9 Obesity, unspecified; G89.29 Other chronic pain; Z96.651 Presence of right artificial knee joint; N18.30 Chronic kidney disease, stage 3 unspecified; E11.22 Type 2 diabetes mellitus with diabetic chronic kidney disease; B96.1 Klebsiella pneumoniae [K. pneumoniae] as the cause of diseases classified elsewhere; B96.4 Proteus (mirabilis) (morganii) as the cause of diseases classified elsewhere; Z66 Do not resuscitate; R00.1 Bradycardia, unspecified; M54.2 Cervicalgia; J98.4 Other disorders of lung; D64.9 Anemia, unspecified; Z79.01 Long term (current) use of anticoagulants; Z88.1 Allergy status to other antibiotic agents; Z88.2 Allergy status to sulfonamides; Z88.0 Allergy status to penicillin; Z79.890 Hormone replacement therapy; Z88.8 Allergy status to other drugs, medicaments and biological substances; Z79.51 Long term (current) use of inhaled steroids; Z79.899 Other long term (current) drug therapy; Z86.19 Personal history of other infectious and parasitic diseases; Z98.41 Cataract extraction status, right eye; Z98.42 Cataract extraction status, left eye; Z90.49 Acquired absence of other specified parts of digestive tract; Z90.710 Acquired absence of both cervix and uterus; Z68.29 Body mass index [BMI] 29.0-29.9, adult
CPT/HCPCS: 0241U; 36415; 70450; 71045; 80048; 80053; 80162; 80305-QW; 80307; 81001; 82140; 82947; 83605; 83735; 84443; 84484; 85025; 85610; 85730; 86140; 87086; 87088; 87186; 93005; 93010; 94640; 96365; 99284; 99285-25; A9270-GY; J0696; J0744; J3475; J3480; J3486; J7040; J7042; U0002